=== PATIENT | male | born 1960 | race Hispanic/Latino ===

== ENCOUNTER → 2019-04-25 | Day surgery (SDC) | payer BC ==
[~2019-04-25] MED LIST: ASPIRIN81 MG PO; CENTRUM SILVER1 EAC3 PO; GLIPIZIDE5 MG PO; HUMALOG100 UNIT/1 SQ; HYOSCYAMINE 0.125 MG TAB ONE; LEVEMIR100 UNIT/1 SQ; LISINOPRIL2.5 MG PO; MIDAZOLAM HCL 2 MG/2 ML VIAL ONE; PEPCID20 MG PO; PLAVIX75 MG PO; SIMVASTATIN80 MG PO; TRILIPIX135 MG PO
--- OUTSIDE RECORDS SUMMARY | 2019-04-25 11:51 | XMS REPORT | Continuity of Care Document ---
Author Author [employer] Organization [facility] Address Unknown Phone Unavailable Care Team Providers Care Rehabilitation Program Manager Name Role Phone [facility] Unavailable Unavailable Problems Problem Status Onset Date Classification Date Reported Comments Source OCCLUSION AND STENOSIS OF CAROTID ARTERY, WITHOUT MENTION OF CEREBRAL INFARCTION Active 2014 Condition 08/15/2014 [facility] Essential hypertension Active Problem 04/11/2019 [facility] Mixed hyperlipidemia Active Problem 04/11/2019 [facility] TIA Active Problem 05/23/2017 [facility] Osteoarthritis of lumbar spine Active Problem 04/11/2019 [facility] Hypertriglyceridemia Active Problem 04/11/2019 [facility] Hx-TIA Active Problem 04/11/2019 [facility] GERD Active Problem 04/11/2019 [facility] Hypogonadism in male Active Problem 04/11/2019 [facility] Osteopenia Active Problem 04/11/2019 [facility] Type 2 diabetes mellitus with hyperglycemia Active Problem 04/11/2019 [facility] Atheromatous plaque Active Problem 04/11/2019 [facility] BMI 27.0-27.9,adult Active Problem 04/11/2019 [facility] Insulin long-term use Active Problem 04/11/2019 [facility] Erectile dysfunction due to diseases classified elsewhere Active Problem 04/11/2019 [facility] Overweight Active Problem 04/11/2019 [facility] Carotid artery narrowing Active Problem 04/11/2019 [facility] Acute left-sided low back pain with left-sided sciatica Active Problem 04/11/2019 [facility] Sciatic leg pain Active Problem 04/11/2019 [facility] Radiculopathy of leg Active Diagnosis 08/02/2017 [facility] Injury of low back, initial encounter Active Diagnosis 07/31/2017 [facility] Encounter to discuss test results Active Diagnosis 08/16/2017 [facility] Status post fall Active Diagnosis 07/31/2017 [facility] Lower back pain Active Diagnosis 04/16/2017 [facility] Foraminal stenosis of lumbar region Active Problem 04/11/2019 [facility] Bulging lumbar disc Active Problem 04/11/2019 [facility] Numbness of arm Active Diagnosis 04/04/2018 [facility] Anxiety Active Problem 04/11/2019 [facility] Chest pain, unspecified type Active Diagnosis 04/16/2018 [facility] Febrile illness, acute Active Diagnosis 12/12/2017 [facility] Viral upper respiratory tract infection Active Diagnosis 12/12/2017 [facility] Osteoarthritis of spine with radiculopathy, cervical region Active Problem 04/11/2019 [facility] Osteoarthritis of spine with radiculopathy, lumbar region Active Problem 04/11/2019 [facility] Lung nodule Active Problem 04/11/2019 [facility] Rib pain on left side Active Diagnosis 03/27/2019 [facility] Encounter to discuss test results Active Diagnosis 04/10/2019 [facility] Rib pain Active Diagnosis 04/10/2019 [facility] HTN Active Diagnosis 06/01/2014 [facility] Hyperlipidemia Active Problem 09/01/2015 [facility] SOB Active Problem 05/21/2015 [facility] GERD Active Problem 09/01/2015 [facility] Hypogonadism Active Problem 09/01/2015 [facility] Diabetes mellitus without mention of complication, type II or unspecified type, uncontrolled Active Problem 09/01/2015 [facility] Polyneuropathy in diabetes Active Problem 09/01/2015 [facility] Essential hypertension, benign Active Problem 07/29/2013 [facility] Hyperlipemia Active Diagnosis 06/01/2014 [facility] Left wrist pain Active Diagnosis 07/25/2013 [facility] Cervical radiculopathy Active Diagnosis 07/25/2018 [facility] TIA Active Problem 09/01/2015 [facility] History of ureter stent Active Problem 09/28/2016 [facility] HLD Active Diagnosis 11/19/2015 [facility] Peyronie disease Active Problem 09/28/2016 [facility] Kidney stone Active Problem 09/28/2016 [facility] Vitamin d deficiency Active Diagnosis 06/01/2014 [facility] Neck pain on right side Active Diagnosis 06/01/2014 [facility] Carotid artery narrowing Active Problem 09/01/2015 [facility] Atheromatous plaque Active Problem 09/01/2015 [facility] HTN , benign Active Problem 09/01/2015 [facility] Overweight Active Problem 09/01/2015 [facility] Other follow-up examination Active Diagnosis 10/07/2014 [facility] Encounter to discuss test results Active Diagnosis 10/07/2014 [facility] BMI 26.0-26.9,adult Active Problem 09/01/2015 [facility] Belching Active Diagnosis 07/07/2014 [facility] Gastritis Active Diagnosis 07/07/2014 [facility] Conjunctivitis Active Diagnosis 02/19/2015 [facility] Other follow-up examination Active Diagnosis 09/16/2015 [facility] Hx of renal calculi Active Diagnosis 06/20/2015 [facility] Microhematuria Active Diagnosis 06/20/2015 [facility] Flank pain Active Diagnosis 06/20/2015 [facility] Sinusitis Active Diagnosis 02/09/2015 [facility] URI, acute Active Diagnosis 02/09/2015 [facility] Upper respiratory infection Active Diagnosis 02/29/2016 [facility] Chest pain Active Diagnosis 02/07/2016 [facility] Gastritis Active Diagnosis 02/07/2016 [facility] Hospital discharge follow-up Active Diagnosis 12/07/2015 [facility] Low back pain Active Diagnosis 04/18/2016 [facility] Medications Medication Details Route Status Patient Instructions Ordering Provider Order Date Source Tamiflu 1 capsule Orally Active 75 MG Orally Twice a day Ru Alvarez 01/26/2019 [facility] Tylenol/Codeine #3 1 tablet as needed Orally Active 300-30 MG Orally every 6 hrs PRN Regulo 01/26/2019 [facility] Invokana 1 tablet Orally Active 100 mg Orally Once a day Ghebranious 2018 [facility] Clopidogrel Bisulfate 1 tablet Orally Active 75 mg Orally Once a day Ghebranious 06/01/2018 [facility] GlipiZIDE 1 tablet Orally Active 10 mg Orally Once a day Ghebranious 04/10/2018 [facility] Klonopin 1 tablet at bedtime Orally Active 0.5 MG Orally twice a day (bid) PRN ebranious 03/31/2018 [facility] Clopidogrel Bisulfate 1 tablet Orally Active 75 mg Orally qd LAST REFILL, MUST SEE DOCTOR ebranious 02/10/2018 [facility] GlipiZIDE 1 tablet Orally Active 10 mg Orally twice a day Ghebranious 02/10/2018 [facility] Trilipix 1 capsule Orally Active 135 MG Orally Once a day Ghebranious 12/08/2017 [facility] Bromfed DM 10 ml as needed Orally Active 30-2-10 MG/5ML Orally every 6 hrs Ghebranious 12/02/2017 [facility] Ceftin 1 tablet Orally Active 250 MG Orally every 12 hrs Ghebranious 12/02/2017 [facility] Trilipix 1 capsule Orally Active 135 MG Orally Once a day Ghebranious 09/20/2017 [facility] Tramadol HCl 1 tablet as needed Orally Active 50 mg Orally every 6 hrs Ghebranious 08/31/2017 [facility] Tizanidine HCl 1 tablet as needed Orally Active 4 mg Orally at bedtime Ghebranious 08/28/2017 [facility] Lyrica 1 capsule Orally Active 50 mg Orally twice a day Ghebranious 2017 [facility] Naproxen 1 tablet as needed Orally Active 500 mg Orally every 12 hrs Ghebranious 07/29/2017 [facility] Valium 1 tablet as needed Orally Active 10 mg Orally Once (30 min prior to procedure) Ghebranious 07/29/2017 [facility] Medrol (Kareem) as directed Orally Active 4 mg Orally as directed Ghebranious 07/29/2017 [facility] Trilipix 1 capsule Orally Active 135 MG Orally Once a day Ghebranious 07/15/2017 [facility] OneTouch Test as directed In Vitro Active - In Vitro three times a day DX: E11.65 Ghebranious 03/05/2017 [facility] OneTouch Lancets as directed SQ Active - SQ three times a day DX: E11ebious 03/05/2017 [facility] Simvastatin 2 tablet in the evening Orally Active 40 MG Orally Once a day Ghebranious 03/05/2017 [facility] One Touch/One Touch II Starter as directed In Vitro Active - In Vitro once a day ebranious 03/05/2017 [facility] OneTouch Lancets as directed SQ Active - SQ three times a day DX: E11 Ghebranious 03/05/2017 [facility] Simvastatin 2 tablet in the evening Orally Active 40 MG Orally Once a day Ghebranious 03/05/2017 [facility] GlipiZIDE 1 tablet Orally Active 10 MG Orally Once a day Ghebranious 01/16/2017 [facility] GlipiZIDE 1 tablet Orally Active 10 MG Orally Once a day Ghebranious 01/16/2017 [facility] Metformin HCl 1 tablet with meals Orally Active 500 mg Orally Twice a day Ghebranious 06/22/2016 [facility] Zanaflex 1 tablet as needed Orally Active 4 mg Orally at bedtime Ghebranious 06/22/2016 [facility] Ibuprofen 1 tablet Orally Active 800 MG Orally Three times a day prn Ghebranious 04/13/2016 [facility] Zanaflex 1 tablet as needed Orally Active 4 mg Orally every 8 hrs prn Vidya 04/13/2016 [facility] Dexilant 1 capsule Orally Active 60 MG Orally Once a day Ghebranious 02/02/2016 [facility] Metformin HCl 1 tablet with meals Orally Active 500 mg Orally Twice a day Ghebranious 12/05/2015 [facility] BD Pen Needle Lara U/F as directed subcutaneously Active 32G X 4 MM subcutaneously use QID for Lantus and Humalog dx: E11.65, Z79.4 Ghebranious 11/16/2015 [facility] BD Pen Needle Lara U/F as directed subcutaneously Active 32G X 4 MM subcutaneously use QID for Lantus and Humalog dx: E11.65, Z79.4 Ghebranious 11/16/2015 [facility] Lantus SoloStar as directed Subcutaneous Active 100 UNIT/ML Subcutaneous 60 units in the morning Ghebranious 11/01/2015 [facility] Humalog KwikPen as directed Subcutaneous Active 100 UNIT/ML Subcutaneous 26 units before meals Ghebranious 11/01/2015 [facility] Fenofibric Acid 1 capsule Orally Active 135 MG Orally Once a day Ghebranious 11/01/2015 [facility] NovoLog Flexpen as directed Subcutaneous Active 100 UNIT/ML Subcutaneous inject 28 units three times a day (disp 5 pens) Ghebranious 08/26/2015 [facility] Tramadol HCl 1-2 tablet as needed Orally Active 50 mg Orally every 6 hrs [place] 06/17/2015 [facility] Amrix 1 capsule Orally Active 15 MG Orally Once a day Mohit 06/10/2015 [facility] Metformin HCl 1 tablet with meals Orally Active 500 mg Orally Twice a day Ghebranious 02/07/2015 [facility] Norel AD 1 tablet as needed Orally Active 4-10-325 MG Orally every 4-6 hours Ghebranious 02/07/2015 [facility] Levaquin 1 tablet Orally Active 500 mg Orally Once a day Ghebranious 02/07/2015 [facility] Tamiflu 1 capsule Orally Active 75 mg Orally Twice a day Ghebranious 01/31/2015 [facility] Invokana 1 tablet Orally Active 100 mg Orally Once a day Ghebranious 09/30/2014 [facility] Aciphex 1 tablet Orally Active 20 mg Orally Once a day Ghebranious 06/10/2014 [facility] Actos 1 tablet Orally Active 30 mg Orally Once a day Ghebranious 09/21/2013 [facility] Pen Sizerock 3/16" as directed in vitro Active 31G X 5 MM (12/27 in vitro use QID DX: 250.03 Ghebranious 05/25/2013 [facility] Pen Sizerock 316" as directed in vitro Active 31G X 5 MM (12/27 in vitro use QID DX: 250.03 Ghebranious 05/25/2013 [facility] Pen [place]ock 316" as directed in vitro Active 31G X 5 MM (12/27") in vitro use QID DX: 250.03 [place] 05/25/2013 [facility] Vitamin D (Ergocalciferol) 1 capsule Orally Active 08887 UNIT Orally once per week [place] 05/11/2013 [facility] Levemir Flexpen 54 units Subcutaneous Active 100 UNIT/ML Subcutaneous Q am Ghebranious 12/31/2012 [facility] Simvastatin Take 1 tablet by mouth in the evening PO Active 80 MG PO once a day Vidya [facility] BD U/F Mini Pen Needle use as directed four times daily NA Active 31G X 5 MM four times a [facility]qid[facility] BD Pen Needle Lara U/F USE DIRECTED 4 TIMES DAILY FOR LANTUS AND HUMALOG INSULIN NA Active 32G X 4 MM ebranious [facility] Trilipix 1 capsule Orally Active 135 MG Orally Once a day ebranious [facility] Aspirin 1 tablet Orally Active 81 MG Orally Once a day [facility] Centrum Silver Adult 50+ not defined Orally Active Orally ebranious [facility] Clopidogrel Bisulfate 1 TABLET ONCE A DAY ORALLY 30 DAYS NA Active 75 mg ebranious [facility] Lantus SoloStar Inject subcutaneously 64 units once a day NA Active 100 UNIT/ML ebranious [facility] Lisinopril 1 tablet orally Active 5 MG orally once a day Ghebranious [facility] Humalog KwikPen 30 units subcutaneously Active 100 UNIT/ML subcutaneously tid with meals DISP #28 PENS Ru Alvarez [facility] Centrum Silver Adult 50+ not defined Orally Active Orally [facility] Lantus SoloStar INJECT SUBCUTANEOUSLY 64 UNITS ONCE A DAY NA Active 100 UNIT/ML [facility] Advil 1 tablet with food or milk as needed Orally Active 200 MG Orally every 6 hrs [facility] Tramadol HCl 1 tablet as needed Orally Active 50 MG Orally every 6 hrs [facility] Simvastatin TAKE 2 TABLETS BY MOUTH EVERY EVENING NA Active 40 mg [facility] Aspirin 1 tablet Orally Active 81 MG Orally Once a day [facility] GlipiZIDE 1 tablet Orally Active 10 mg Orally qd LAST REFILL, NEEDS BLOOD WORK [facility] Clopidogrel Bisulfate 1 tablet orally Active 75 mg orally qd LAST REFILL, MUST SEE DOCTOR virgil [facility] OneTouch Ultra Test USE DIRECTED 3 TIMES DAILY NA Active - ebranious [facility] Lantus SoloStar 64 units Subcutaneous Active 100 UNIT/ML Subcutaneous once a day [facility] Simvastatin TAKE 2 TABLETS BY MOUTH EVERY EVENING NA Active 40 mg [facility] OneTouch Delica Lancets Fine USE DIRECTED 3 TIMES DAILY NA Active - ebranious [facility] Humalog KwikPen 30 units subcutaneously Active 100 UNIT/ML subcutaneously tid with meals DISP #28 [facility] Clopidogrel Bisulfate TAKE ONE TABLET BY MOUTH ONCE A DAY NA Active 75 [facility] GlipiZIDE TAKE 1 TABLET BY MOUTH ONCE A DAY NA Active 10 MG [facility] Lisinopril 1 tablet orally Active 5 MG orally once a day [facility] Acetaminophen-Codeine #3 (Schedule III Drug) Oral Active 300- 30 MG Oral Ru Alvarez [facility] BD Pen Needle Lara U/F USE DIRECTED 4 TIMES DAILY NA Active 32G X 4 MM [facility] Clopidogrel Bisulfate TAKE 1 TABLET BY MOUTH ONCE A DAY NA Active 75 MG [facility] Trilipix 1 capsule Orally Active 135 MG Orally Once a day [facility] Trilipix 1 capsule Orally Active 135 MG Orally Once a day Vidya [facility] Lisinopril 1 tablet by mouth Active 5 MG by mouth Once a day [facility] Simvastatin take 1 tablet by mouth in the evening one time daily by mouth Active 80 mg by mouth Once a day [facility] NovoLog Flexpen INJECT 24-26 UNITS SUBCUTANEOUSLY THREE TIMES DAILY NA Active 100 UNIT/ML Mohit [facility] Aspir-81 1 tablet Orally Active 81 MG Orally Once a day [facility] Testosterone Cypionate 1 ml intramuscularly Active 200 MG/ML intramuscularly every 2 weeks [facility] Aspirin 1 tablet Orally Active 325 MG Orally Once a day Vidya [facility] Vitamin D as directed Orally Active 400 UNIT Orally [facility] Levemir Flexpen INJECT 60 UNITS SUBCUTANEOUSLY EVERY MORNING NA Active 100 UNIT/ML [facility] Vitamin E 1 capsule Orally Active 400 UNIT Orally Once a day [facility] Zofran as directed Orally Active 24 MG Orally [facility] NovoLog Flexpen INJECT 26 UNITS SUBCUTANEOUSLY THREE TIMES DAILY NA Active 100 UNIT/ML [facility] Aspirin 1 tablet Orally Active 325 MG Orally Once a day Mohit [facility] Plavix 1 tablet Orally Active 75 MG Orally Once a day [facility] Simvastatin TAKE 1 TABLET BY MOUTH IN THE EVENING ONE TIME DAILY NA Active 80 MG [facility] Lisinopril TAKE 1 TABLET BY MOUTH DAILY NA Active 5 MG [facility] Levemir Flexpen INJECT 56 UNITS SUBCUTANEOUSLY EVERY MORNING NA Active 100 UNIT/ML Ghebranious [facility] Clopidogrel Bisulfate 1 tablet Orally Active 75 mg Orally Once a day Ghebranious [facility] Dexilant 1 capsule Orally Active 60 MG Orally Once a day Ghebranious [facility] Allergies, Adverse Reactions, Alerts Substance Category Reaction Severity Reaction type Status Date Reported Comments Source Tricor Adverse Reaction Info Not Available Adverse Reaction Active 04/07/2019 [facility] Lipitor Adverse Reaction Info Not Available Adverse Reaction Active 04/07/2019 [facility] Codeine Phosphate Adverse Reaction nausea Adverse Reaction Active 04/07/2019 [facility] Immunizations Immunization Date Given Site Status Last Updated Comments Source PNEUMOCOCCAL VACCINE 02/02/2016 completed [facility] Results No Data Provided for This Section Pathology Reports No Data Provided for This Section Diagnostic Reports No Data Provided for This Section Consultation Notes No Data Provided for This Section Discharge Summaries No Data Provided for This Section History and Physicals No Data Provided for This Section Vital Signs Vital Sign Value Date Comments Source Weight 190 04/07/2019 [facility] Height 69 04/07/2019 [facility] Heart Rate 76 04/07/2019 [facility] Diastolic (mm Hg) 64 04/07/2019 [facility] Systolic (mm Hg) 116 04/07/2019 [facility] Weight 185 03/17/2019 [facility] Height 69 03/17/2019 [facility] Heart Rate 68 03/17/2019 [facility] Diastolic (mm Hg) 68 03/17/2019 [facility] Systolic (mm Hg) 118 03/17/2019 [facility] Weight 185 01/26/2019 [facility] Height 69 01/26/2019 [facility] Heart Rate 68 01/26/2019 [facility] Diastolic (mm Hg) 64 01/26/2019 [facility] Systolic (mm Hg) 128 01/26/2019 [facility] Weight 191 12/16/2018 [facility] Height 69 12/16/2018 [facility] Heart Rate 69 12/16/2018 [facility] Diastolic (mm Hg) 74 12/16/2018 [facility] Systolic (mm Hg) 118 12/16/2018 [facility] Weight 190 12/02/2018 [facility] Height 69 12/02/2018 [facility] Heart Rate 66 12/02/2018 [facility] Diastolic (mm Hg) 74 12/02/2018 [facility] Systolic (mm Hg) 116 12/02/2018 [facility] Weight 190 2018 [facility] Height 69 2018 [facility] Heart Rate 72 2018 [facility] Diastolic (mm Hg) 74 2018 [facility] Systolic (mm Hg) 128 2018 [facility] Weight 188 07/21/2018 [facility] Height 69 07/21/2018 [facility] Heart Rate 71 07/21/2018 [facility] Diastolic (mm Hg) 74 07/21/2018 [facility] Systolic (mm Hg) 144 07/21/2018 [facility] Weight 185 04/10/2018 [facility] Height 69 04/10/2018 [facility] Heart Rate 78 04/10/2018 [facility] Diastolic (mm Hg) 74 04/10/2018 [facility] Systolic (mm Hg) 122 04/10/2018 [facility] Weight 184 04/02/2018 [facility] Height 69 04/02/2018 [facility] Heart Rate 66 04/02/2018 [facility] Diastolic (mm Hg) 74 04/02/2018 [facility] Systolic (mm Hg) 118 04/02/2018 [facility] Weight 184 03/31/2018 [facility] Height 69 03/31/2018 [facility] Heart Rate 86 03/31/2018 [facility] Diastolic (mm Hg) 84 03/31/2018 [facility] Systolic (mm Hg) 134 03/31/2018 [facility] Weight 184 12/02/2017 [facility] Height 69 12/02/2017 [facility] [facility] Heart Rate 90 12/02/2017 [facility] Diastolic (mm Hg) 84 12/02/2017 [facility] Systolic (mm Hg) 142 12/02/2017 [facility] Weight 182 2017 [facility] Height 69 2017 [facility] Heart Rate 82 2017 [facility] Diastolic (mm Hg[facility] 74 2017 [facility] Systolic (mm Hg) 126 2017 [facility] Systolic (mm Hg) 142 07/29/2017 [facility] Height 69 07/29/2017 [facility] Heart Rate 74 07/29/2017 [facility] Diastolic (mm Hg) 84 07/29/2017 [facility] Weight 185 07/12/2017 [facility] Height 69 07/12/2017 [facility] Heart Rate 71 07/12/2017 [facility] Diastolic (mm Hg) 72 07/12/2017 [facility] Systolic (mm Hg) 118 07/12/2017 [facility] Weight 191 04/12/2017 [facility] Height 69 04/12/2017 [facility] Heart Rate 66 04/12/2017 [facility] Diastolic (mm Hg) 72 04/12/2017 [facility] Systolic (mm Hg) 118 04/12/2017 [facility] Weight 187 03/05/2017 [facility] Height 69 03/05/2017 [facility] Heart Rate 80 03/05/2017 [facility] Diastolic (mm Hg) 70 03/05/2017 [facility] Systolic (mm Hg) 108 03/05/2017 [facility] Weight 188 12/13/2016 [facility] Height 69 12/13/2016 [facility] Heart Rate 76 12/13/2016 [facility] Diastolic (mm Hg) 78 12/13/2016 [facility] Systolic (mm Hg) 118 12/13/2016 [facility] Weight 186 09/24/2016 [facility] Height 69 09/24/2016 [facility] Heart Rate 72 09/24/2016 [facility] Diastolic (mm Hg) 76 09/24/2016 [facility] Systolic (mm Hg) 122 09/24/2016 [facility] Weight 190 06/22/2016 [facility] Height 69 06/22/2016 [facility] Heart Rate 68 06/22/2016 [facility] Diastolic (mm Hg) 86 06/22/2016 [facility] Systolic (mm Hg) 124 06/22/2016 [facility] Weight 190 06/05/2016 [facility] Height 69 06/05/2016 [facility] Heart Rate 72 06/05/2016 [facility] Diastolic (mm Hg) 74 06/05/2016 [facility] Systolic (mm Hg) 118 06/05/2016 [facility] Weight 188 04/13/2016 [facility] Height 69 04/13/2016 [facility] Heart Rate 77 04/13/2016 [facility] Diastolic (mm Hg) 76 04/13/2016 [facility] Systolic (mm Hg) 120 04/13/2016 [facility] Weight 189 04/03/2016 [facility] Height 69 04/03/2016 [facility] Heart Rate 61 04/03/2016 [facility] Diastolic (mm Hg) 76 04/03/2016 [facility] Systolic (mm Hg) 124 04/03/2016 [facility] Weight 189 03/21/2016 [facility] Height 69 03/21/2016 [facility] Diastolic (mm Hg) 66 03/21/2016 [facility] Systolic (mm Hg) 118 03/21/2016 [facility] Weight 189 03/01/2016 [facility] Height 69 03/01/2016 [facility] Heart Rate 72 03/01/2016 [facility] Diastolic (mm Hg) 74 03/01/2016 [facility] Systolic (mm Hg) 118 03/01/2016 [facility] Weight 188 02/27/2016 [facility] Height 69 02/27/2016 [facility] Temperature Oral (F) 98.1 F 02/27/2016 [facility] Heart Rate 73 02/27/2016 [facility] Diastolic (mm Hg) 70 02/27/2016 [facility] Systolic (mm Hg) 124 02/27/2016 [facility] Weight 188 02/22/2016 [facility] Height 69 02/22/2016 [facility] Heart Rate 65 02/22/2016 [facility] Diastolic (mm Hg) 64 02/22/2016 [facility] Systolic (mm Hg) 114 02/22/2016 [facility] Weight 187 02/02/2016 [facility] Height 69 02/02/2016 [facility] Heart Rate 84 02/02/2016 [facility] Diastolic (mm Hg) 58 02/02/2016 [facility] Systolic (mm Hg) 116 02/02/2016 [facility] Weight 185 12/05/2015 [facility] Height 69 12/05/2015 [facility] Heart Rate 82 12/05/2015 [facility] Diastolic (mm Hg) 68 12/05/2015 [facility] Systolic (mm Hg) 116 12/05/2015 [facility] Weight 185 11/01/2015 [facility] Height 69 11/01/2015 [facility] Heart Rate 72 11/01/2015 [facility] Diastolic (mm Hg) 66 11/01/2015 [facility] Systolic (mm Hg) 120 11/01/2015 [facility] Weight 185 09/28/2015 [facility] Height 69 09/28/2015 [facility] Heart Rate 82 09/28/2015 [facility] Diastolic (mm Hg) 72 09/28/2015 [facility] Systolic (mm Hg) 116 09/28/2015 [facility] Weight 185 09/14/2015 [facility] Height 69 09/14/2015 [facility] Heart Rate 82 09/14/2015 [facility] Diastolic (mm Hg) 68 09/14/2015 [facility] Systolic (mm Hg) 112 09/14/2015 [facility] Weight 180 06/17/2015 [facility] Height 69 06/17/2015 [facility] Heart Rate 80 06/17/2015 [facility] Diastolic (mm Hg) 74 06/17/2015 [facility] Systolic (mm Hg) 132 06/17/2015 [facility] Height 69 02/16/2015 [facility] Weight 176 02/07/2015 [facility] Height 69 02/07/2015 [facility] Temperature Oral (F) 98.4 F 02/07/2015 [facility] Heart Rate 80 02/07/2015 [facility] Diastolic (mm Hg) 70 02/07/2015 [facility] Systolic (mm Hg) 120 02/07/2015 [facility] Weight 181 09/30/2014 [facility] Height 69 09/30/2014 [facility] Heart Rate 72 09/30/2014 [facility] Diastolic (mm Hg) 64 09/30/2014 [facility] Systolic (mm Hg) 112 09/30/2014 [facility] Weight 181 2014 [facility] Height 69 2014 [facility] Temperature Oral (F) 98 F 2014 [facility] Heart Rate 67 2014 [facility] Systolic (mm Hg) 122 2014 [facility] Diastolic (mm Hg) 81 2014 [facility] Weight 181 06/10/2014 [facility] Height 69 06/10/2014 [facility] Heart Rate 68 06/10/2014 [facility] Diastolic (mm Hg) 66 06/10/2014 [facility] Systolic (mm Hg) 108 06/10/2014 [facility] Weight 185 04/26/2014 [facility] Height 69 04/26/2014 [facility] Heart Rate 68 04/26/2014 [facility] Diastolic (mm Hg) 80 04/26/2014 [facility] Systolic (mm Hg) 118 04/26/2014 [facility] Weight 185 03/11/2014 [facility] Height 69 03/11/2014 [facility] Heart Rate 64 03/11/2014 [facility] Diastolic (mm Hg) 76 03/11/2014 [facility] Systolic (mm Hg) 112 03/11/2014 [facility] Weight 178 12/01/2013 [facility] Height 69 12/01/2013 [facility] Heart Rate 70 12/01/2013 [facility] Diastolic (mm Hg) 70 12/01/2013 [facility] Systolic (mm Hg) 122 12/01/2013 [facility] Weight 184 10/06/2013 [facility] Height 69 10/06/2013 [facility] Heart Rate 68 10/06/2013 [facility] Diastolic (mm Hg) 74 10/06/2013 [facility] Systolic (mm Hg) 128 10/06/2013 [facility] Weight 184 10/06/2013 [facility] Heart Rate 68 10/06/2013 [facility] Diastolic (mm Hg) 74 10/06/2013 [facility] Systolic (mm Hg) 128 10/06/2013 [facility] Weight 178 09/21/2013 [facility] Height 69 09/21/2013 [facility] Temperature Oral (F) 97.6 F 09/21/2013 [facility] Heart Rate 76 09/21/2013 [facility] Diastolic (mm Hg) 76 09/21/2013 [facility] Systolic (mm Hg) 114 09/21/2013 [facility] Weight 178 09/21/2013 [facility] Temperature Oral (F) 97.6 F 09/21/2013 [facility] Heart Rate 76 09/21/2013 [facility] Diastolic (mm Hg) 76 09/21/2013 [facility] Systolic (mm Hg) 114 09/21/2013 [facility] Weight 182 07/23/2013 [facility] Height 69 07/23/2013 [facility] Heart Rate 60 07/23/2013 [facility] Diastolic (mm Hg) 82 07/23/2013 [facility] Systolic (mm Hg) 122 07/23/2013 [facility] Encounters Location Location Details Encounter Type Encounter Number Reason For Visit Attending Provider ADM Date DC Date Status Source [facility] [id number] 07/23/2013 07/23/2013 [facility] [id number] 07/23/2013 07/23/2013 [facility] [id number] 07/23/2013 07/23/2013 [facility] [id number] 07/23/2013 07/23/2013 [facility] [id number] 07/23/2013 07/23/2013 [facility] [id number] 07/23/2013 07/23/2013 [facility] [id number] 07/23/2013 07/23/2013 [facility] [id number] 07/23/2013 07/23/2013 [facility] [id number] 07/23/2013 07/23/2013 [facility] [id number] 07/23/2013 07/23/2013 [facility] [id number] 07/23/2013 07/23/2013 [facility] [id number] 07/23/2013 07/23/2013 [facility] [id number] 07/23/2013 07/23/2013 [facility] [id number] 07/23/2013 07/23/2013 [facility] [id number] 07/23/2013 07/23/2013 [facility] [id number] 07/23/2013 07/23/2013 [facility] [id number] 07/23/2013 07/23/2013 [facility] [id number] 07/23/2013 07/23/2013 [facility] [id number] 07/23/2013 07/23/2013 [facility] [id number] 07/23/2013 07/23/2013 [facility] [id number] 07/23/2013 07/23/2013 [facility] [id number] 07/23/2013 07/23/2013 [facility] [id number] 07/23/2013 07/23/2013 [facility] [id number] 07/23/2013 07/23/2013 [facility] [id number] 07/23/2013 07/23/2013 [facility] [id number] 07/23/2013 07/23/2013 [facility] [id number] 07/23/2013 07/23/2013 [facility] [id number] 07/23/2013 07/23/2013 [facility] [id number] 07/23/2013 07/23/2013 [facility] [id number] 07/23/2013 07/23/2013 [facility] [id number] 07/23/2013 07/23/2013 [facility] [id number] 07/23/2013 07/23/2013 [facility] [id number] 07/23/2013 07/23/2013 [facility] [id number] 07/23/2013 07/23/2013 [facility] [id number] 07/23/2013 07/23/2013 [facility] [id number] 07/23/2013 07/23/2013 [facility] [id number] 07/23/2013 07/23/2013 [facility] [id number] 07/23/2013 07/23/2013 [facility] [id number] 07/23/2013 07/23/2013 [facility] [id number] 07/23/2013 07/23/2013 [facility] [id number] 07/23/2013 07/23/2013 [facility] [id number] 07/23/2013 07/23/2013 [facility] [id number] 07/23/2013 07/23/2013 [facility] [id number] 07/23/2013 07/23/2013 [facility] Test results [id number] 07/28/2013 07/28/2013 [facility] Test results [id number] 07/28/2013 07/28/2013 [facility] Test results [id number] 07/28/2013 07/28/2013 [facility] Test results [id number] 07/28/2013 07/28/2013 [facility] Test results [id number] 07/28/2013 07/28/2013 [facility] Test results [id number] 07/28/2013 07/28/2013 [facility] Test results [id number] 07/28/2013 07/28/2013 [facility] Test results [id number] 07/28/2013 07/28/2013 [facility] Test results [id number] 07/28/2013 07/28/2013 [facility] Test results [id number] 07/28/2013 07/28/2013 [facility] Test results [id number] 07/28/2013 07/28/2013 [facility] Test results [id number] 07/28/2013 07/28/2013 [facility] Test results [id number] 07/28/2013 07/28/2013 [facility] Test results [id number] 07/28/2013 07/28/2013 [facility] Test results [id number] 07/28/2013 07/28/2013 [facility] Test results [id number] 07/28/2013 07/28/2013 [facility] Test results [id number] 07/28/2013 07/28/2013 [facility] Test results [id number] 07/28/2013 07/28/2013 [facility] Test results [id number] 07/28/2013 07/28/2013 [facility] Test results [id number] 07/28/2013 07/28/2013 [facility] Test results [id number] 07/28/2013 07/28/2013 [facility] Test results [id number] 07/28/2013 07/28/2013 [facility] Test results [id number] 07/28/2013 07/28/2013 [facility] Test results [id number] 07/28/2013 07/28/2013 [facility] Test results [id number] 07/28/2013 07/28/2013 [facility] Test results [id number] 07/28/2013 07/28/2013 [facility] Test results [id number] 07/28/2013 07/28/2013 [facility] Test results [id number] 07/28/2013 07/28/2013 [facility] Test results [id number] 07/28/2013 07/28/2013 [facility] Test results [id number] 07/28/2013 07/28/2013 [facility] Test results [id number] 07/28/2013 07/28/2013 [facility] Test results [id number] 07/28/2013 07/28/2013 [facility] Test results [id number] 07/28/2013 07/28/2013 [facility] Test results [id number] 07/28/2013 07/28/2013 [facility] Test results [id number] 07/28/2013 07/28/2013 [facility] Test results [id number] 07/28/2013 07/28/2013 [facility] Test results [id number] 07/28/2013 07/28/2013 [facility] Test results [id number] 07/28/2013 07/28/2013 [facility] Test results [id number] 07/28/2013 07/28/2013 [facility] Test results [id number] 07/28/2013 07/28/2013 [facility] Test results [id number] 07/28/2013 07/28/2013 [facility] Test results [id number] 07/28/2013 07/28/2013 [facility] Test results [id number] 07/28/2013 07/28/2013 [facility] [id number] 08/12/2013 08/12/2013 [facility] [id number] 08/12/2013 08/12/2013 [facility] [id number] 08/12/2013 08/12/2013 [facility] [id number] 08/12/2013 08/12/2013 [facility] [id number] 08/12/2013 08/12/2013 [facility] [id number] 08/12/2013 08/12/2013 [facility] [id number] 08/12/2013 08/12/2013 [facility] [id number] 08/12/2013 08/12/2013 [facility] [id number] 08/12/2013 08/12/2013 [facility] [id number] 08/12/2013 08/12/2013 [facility] [id number] 08/12/2013 08/12/2013 [facility] [id number] 08/12/2013 08/12/2013 [facility] [id number] 08/12/2013 08/12/2013 [facility] [id number] 08/12/2013 08/12/2013 [facility] [id number] 08/12/2013 08/12/2013 [facility] [id number] 08/12/2013 08/12/2013 [facility] [id number] 08/12/2013 08/12/2013 [facility] [id number] 08/12/2013 08/12/2013 [facility] [id number] 08/12/2013 08/12/2013 [facility] [id number] 08/12/2013 08/12/2013 [facility] [id number] 08/12/2013 08/12/2013 [facility] [id number] 08/12/2013 08/12/2013 [facility] [id number] 08/12/2013 08/12/2013 [facility] [id number] 08/12/2013 08/12/2013 [facility] [id number] 08/12/2013 08/12/2013 [facility] [id number] 08/12/2013 08/12/2013 [facility] [id number] 08/12/2013 08/12/2013 [facility] [id number] 08/12/2013 08/12/2013 [facility] [id number] 08/12/2013 08/12/2013 [facility] [id number] 08/12/2013 08/12/2013 [facility] [id number] 08/12/2013 08/12/2013 [facility] [id number] 08/12/2013 08/12/2013 [facility] [id number] 08/12/2013 08/12/2013 [facility] [id number] 08/12/2013 08/12/2013 [facility] [id number] 08/12/2013 08/12/2013 [facility] [id number] 08/12/2013 08/12/2013 [facility] [id number] 08/12/2013 08/12/2013 [facility] [id number] 08/12/2013 08/12/2013 [facility] TEST INJ [id number] 08/27/2013 08/27/2013 [facility] TEST INJ [id number] 08/27/2013 08/27/2013 [facility] TEST INJ [id number] 08/27/2013 08/27/2013 [facility] TEST INJ [id number] 08/27/2013 08/27/2013 [facility] TEST INJ [id number] 08/27/2013 08/27/2013 [facility] TEST INJ [id number] 08/27/2013 08/27/2013 [facility] TEST INJ [id number] 08/27/2013 08/27/2013 [facility] TEST INJ [id number] 08/27/2013 08/27/2013 [facility] TEST INJ [id number] 08/27/2013 08/27/2013 [facility] TEST INJ [id number] 08/27/2013 08/27/2013 [facility] TEST INJ [id number] 08/27/2013 08/27/2013 [facility] TEST INJ [id number] 08/27/2013 08/27/2013 [facility] TEST INJ [id number] 08/27/2013 08/27/2013 [facility] TEST INJ [id number] 08/27/2013 08/27/2013 [facility] TEST INJ [id number] 08/27/2013 08/27/2013 [facility] TEST INJ [id number] 08/27/2013 08/27/2013 [facility] TEST INJ [id number] 08/27/2013 08/27/2013 [facility] TEST INJ [id number] 08/27/2013 08/27/2013 [facility] TEST INJ [id number] 08/27/2013 08/27/2013 [facility] TEST INJ [id number] 08/27/2013 08/27/2013 [facility] TEST INJ [id number] 08/27/2013 08/27/2013 [facility] TEST INJ [id number] 08/27/2013 08/27/2013 [facility] TEST INJ [id number] 08/27/2013 08/27/2013 [facility] TEST INJ [id number] 08/27/2013 08/27/2013 [facility] TEST INJ [id number] 08/27/2013 08/27/2013 [facility] TEST INJ [id number] 08/27/2013 08/27/2013 [facility] TEST INJ [id number] 08/27/2013 08/27/2013 [facility] TEST INJ [id number] 08/27/2013 08/27/2013 [facility] TEST INJ [id number] 08/27/2013 08/27/2013 [facility] TEST INJ [id number] 08/27/2013 08/27/2013 [facility] TEST INJ [id number] 08/27/2013 08/27/2013 [facility] TEST INJ [id number] 08/27/2013 08/27/2013 [facility] TEST INJ [id number] 08/27/2013 08/27/2013 [facility] TEST INJ [id number] 08/27/2013 08/27/2013 [facility] TEST INJ [id number] 08/27/2013 08/27/2013 [facility] TEST INJ [id number] 08/27/2013 08/27/2013 [facility] TEST INJ [id number] 08/27/2013 08/27/2013 [facility] TEST INJ [id number] 08/27/2013 08/27/2013 [facility] FOLLOW-UP [id number] 09/21/2013 09/21/2013 [facility] FOLLOW-UP [id number] 09/21/2013 09/21/2013 [facility] FOLLOW-UP [id number] 09/21/2013 09/21/2013 [facility] FOLLOW-UP [id number] 09/21/2013 09/21/2013 [facility] FOLLOW-UP [id number] 09/21/2013 09/21/2013 [facility] FOLLOW-UP [id number] 09/21/2013 09/21/2013 [facility] FOLLOW-UP [id number] 09/21/2013 09/21/2013 [facility] FOLLOW-UP [id number] 09/21/2013 09/21/2013 [facility] FOLLOW-UP [id number] 09/21/2013 09/21/2013 [facility] FOLLOW-UP [id number] 09/21/2013 09/21/2013 [facility] FOLLOW-UP [id number] 09/21/2013 09/21/2013 [facility] FOLLOW-UP [id number] 09/21/2013 09/21/2013 [facility] FOLLOW-UP [id number] 09/21/2013 09/21/2013 [facility] FOLLOW-UP [id number] 09/21/2013 09/21/2013 [facility] FOLLOW-UP [id number] 09/21/2013 09/21/2013 [facility] FOLLOW-UP [id number] 09/21/2013 09/21/2013 [facility] FOLLOW-UP [id number] 09/21/2013 09/21/2013 [facility] FOLLOW-UP [id number] 09/21/2013 09/21/2013 [facility] FOLLOW-UP [id number] 09/21/2013 09/21/2013 [facility] FOLLOW-UP [id number] 09/21/2013 09/21/2013 [facility] FOLLOW-UP [id number] 09/21/2013 09/21/2013 [facility] FOLLOW-UP [id number] 09/21/2013 09/21/2013 [facility] FOLLOW-UP [id number] 09/21/2013 09/21/2013 [facility] FOLLOW-UP [id number] 09/21/2013 09/21/2013 [facility] FOLLOW-UP [id number] 09/21/2013 09/21/2013 [facility] FOLLOW-UP [id number] 09/21/2013 09/21/2013 [facility] FOLLOW-UP [id number] 09/21/2013 09/21/2013 [facility] FOLLOW-UP [id number] 09/21/2013 09/21/2013 [facility] FOLLOW-UP [id number] 09/21/2013 09/21/2013 [facility] FOLLOW-UP [id number] 09/21/2013 09/21/2013 [facility] FOLLOW-UP [id number] 09/21/2013 09/21/2013 [facility] FOLLOW-UP [id number] 09/21/2013 09/21/2013 [facility] FOLLOW-UP [id number] 09/21/2013 09/21/2013 [facility] FOLLOW-UP [id number] 09/21/2013 09/21/2013 [facility] FOLLOW-UP [id number] 09/21/2013 09/21/2013 [facility] FOLLOW-UP [id number] 09/21/2013 09/21/2013 [facility] FOLLOW-UP [id number] 09/21/2013 09/21/2013 [facility] FOLLOW-UP [id number] 09/21/2013 09/21/2013 [facility] ECHO/GHEB [id number] 09/22/2013 09/22/2013 [facility] ECHO/GHEB [id number] 09/22/2013 09/22/2013 [facility] ECHO/GHEB [id number] 09/22/2013 09/22/2013 [facility] ECHO/EB [id number] 09/22/2013 09/22/2013 [facility] ECHO/EB [id number] 09/22/2013 09/22/2013 [facility] ECHO/EB [id number] 09/22/2013 09/22/2013 [facility] ECHO/EB [id number] 09/22/2013 09/22/2013 [facility] ECHO/EB [id number] 09/22/2013 09/22/2013 [facility] ECHO/EB [id number] 09/22/2013 09/22/2013 [facility] ECHO/EB [id number] 09/22/2013 09/22/2013 [facility] ECHO/EB [id number] 09/22/2013 09/22/2013 [facility] ECHO/EB [id number] 09/22/2013 09/22/2013 [facility] [facility] ECHO/EB [id number] 09/22/2013 09/22/2013 [facility] ECHO/[facility] [id number] 09/22/2013 09/22/2013 [facility] [id number] 09/22/2013 09/22/2013 [facility] ECHO/EB [id number] 09/22/2013 09/22/2013 [facility] ECHO/EB [id number] 09/22/2013 09/22/2013 [facility] ECHO/EB [id number] 09/22/2013 09/22/2013 [facility] ECHO/EB [id number] 09/22/2013 09/22/2013 [facility] ECHO/EB [id number] 09/22/2013 09/22/2013 [facility] ECHO/EB [id number] 09/22/2013 09/22/2013 [facility] ECHO/EB [id number] 09/22/2013 09/22/2013 [facility] ECHO/EB [id number] 09/22/2013 09/22/2013 [facility] ECHO/EB [id number] 09/22/2013 09/22/2013 [facility] ECHO/EB [id number] 09/22/2013 09/22/2013 [facility] ECHO/EB [id number] 09/22/2013 09/22/2013 [facility] ECHO/EB [id number] 09/22/2013 09/22/2013 [facility] ECHO/EB [id number] 09/22/2013 09/22/2013 [facility] ECHO/EB [id number] 09/22/2013 09/22/2013 [facility] ECHO/EB [id number] 09/22/2013 09/22/2013 [facility] ECHO/EB [id number] 09/22/2013 09/22/2013 [facility] ECHO/EB [id number] 09/22/2013 09/22/2013 [facility] ECHO/EB [id number] 09/22/2013 09/22/2013 [facility] E[facility] [id number] 09/22/2013 09/22/2013 [facility] [id number] 09/22/2013 09/22/2013 [facility] ECHO/EB [id number] 09/22/2013 09/22/2013 [facility] ECHO/EB [id number] 09/22/2013 09/22/2013 [facility] ECHO/EB [id number] 09/22/2013 09/22/2013 [facility] ECHO/EB [id number] 09/22/2013 09/22/2013 [facility] ECHO/EB [id number] 09/22/2013 09/22/2013 [facility] ECHO/EB [id number] 09/22/2013 09/22/2013 [facility] ECHO/EB [id number] 09/22/2013 09/22/2013 [facility] Follow-Up [id number] 10/06/2013 10/06/2013 [facility] Follow-Up [id number] 10/06/2013 10/06/2013 [facility] Follow-Up [id number] 10/06/2013 10/06/2013 [facility] Follow-Up [id number] 10/06/2013 10/06/2013 [facility] Follow-Up [id number] 10/06/2013 10/06/2013 [facility] Follow-Up [id number] 10/06/2013 10/06/2013 [facility] Follow-Up [id number] 10/06/2013 10/06/2013 [facility] Follow-Up [id number] 10/06/2013 10/06/2013 [facility] Follow-Up [id number] 10/06/2013 10/06/2013 [facility] Follow-Up [id number] 10/06/2013 10/06/2013 [facility] Follow-Up [id number] 10/06/2013 10/06/2013 [facility] Follow-Up [id number] 10/06/2013 10/06/2013 [facility] Follow-Up [id number] 10/06/2013 10/06/2013 [facility] Follow-Up [id number] 10/06/2013 10/06/2013 [facility] Follow-Up [id number] 10/06/2013 10/06/2013 [facility] Follow-Up [id number] 10/06/2013 10/06/2013 [facility] Follow-Up [id number] 10/06/2013 10/06/2013 [facility] Follow-Up [id number] 10/06/2013 10/06/2013 [facility] Follow-Up [id number] 10/06/2013 10/06/2013 [facility] Follow-Up [id number] 10/06/2013 10/06/2013 [facility] Follow-Up [id number] 10/06/2013 10/06/2013 [facility] Follow-Up [id number] 10/06/2013 10/06/2013 [facility] Follow-Up [id number] 10/06/2013 10/06/2013 [facility] Follow-Up [id number] 10/06/2013 10/06/2013 [facility] Follow-Up [id number] 10/06/2013 10/06/2013 [facility] Follow-Up [id number] 10/06/2013 10/06/2013 [facility] Follow-Up [id number] 10/06/2013 10/06/2013 [facility] Follow-Up [id number] 10/06/2013 10/06/2013 [facility] Follow-Up [id number] 10/06/2013 10/06/2013 [facility] Follow-Up [id number] 10/06/2013 10/06/2013 [facility] Follow-Up [id number] 10/06/2013 10/06/2013 [facility] Follow-Up [id number] 10/06/2013 10/06/2013 [facility] Follow-Up [id number] 10/06/2013 10/06/2013 [facility] Follow-Up [id number] 10/06/2013 10/06/2013 [facility] Follow-Up [id number] 10/06/2013 10/06/2013 [facility] Follow-Up [id number] 10/06/2013 10/06/2013 [facility] Follow-Up [id number] 10/06/2013 10/06/2013 [facility] Follow-Up [id number] 10/06/2013 10/06/2013 [facility] Refill Request [id number] 11/04/2013 11/04/2013 [facility] Refill Request [id number] 11/04/2013 11/04/2013 [facility] Refill Request [id number] 11/04/2013 11/04/2013 [facility] Refill Request [id number] 11/04/2013 11/04/2013 [facility] Refill Request [id number] 11/04/2013 11/04/2013 [facility] Refill Request [id number] 11/04/2013 11/04/2013 [facility] Refill Request [id number] 11/04/2013 11/04/2013 [facility] Refill Request [id number] 11/04/2013 11/04/2013 [facility] Refill Request [id number] 11/04/2013 11/04/2013 [facility] Request [id number] 11/04/2013 11/04/2013 [facility] Refill Request [id number] 11/04/2013 11/04/2013 [facility] Refill Request [id number] 11/04/2013 11/04/2013 [facility] Refill Request [id number] 11/04/2013 11/04/2013 [facility] Refill Request [id number] 11/04/2013 11/04/2013 [facility] Ref[facility] Request [id number] 11/04/2013 11/04/2013 [facility] Refill Request [id number] 11/04/2013 11/04/2013 [facility] Refill Request [id number] 11/04/2013 11/04/2013 [facility] Refill Request [id number] 11/04/2013 11/04/2013 [facility] Refill Request [id number] 11/04/2013 11/04/2013 [facility] Refill Request [id number] 11/04/2013 11/04/2013 [facility] Refill Request [id number] 11/04/2013 11/04/2013 [facility] Refill Request [id number] 11/04/2013 11/04/2013 [facility] Refill Request [id number] 11/04/2013 11/04/2013 [facility] Refill Request [id number] 11/04/2013 11/04/2013 [facility] Refill Request [id number] 11/04/2013 11/04/2013 [facility] Refill Request [id number] 11/04/2013 11/04/2013 [facility] Refill Request [id number] 11/04/2013 11/04/2013 [facility] Refill Request [id number] 11/04/2013 11/04/2013 [facility] Refill Request [id number] 11/04/2013 11/04/2013 [facility] Refill Request [id number] 11/04/2013 11/04/2013 [facility] Refill Request [id number] 11/04/2013 11/04/2013 [facility] Refill Request [id number] 11/04/2013 11/04/2013 [facility] Refill Request [id number] 11/04/2013 11/04/2013 [facility] Refill Request [id number] 11/04/2013 11/04/2013 [facility] Refill Request [id number] 11/04/2013 11/04/2013 [facility] Refill Request [id number] 11/04/2013 11/04/2013 [facility] Refill Request [id number] 11/04/2013 11/04/2013 [facility] Refill Request [id number] 11/04/2013 11/04/2013 [facility] Refill Request [id number] 11/04/2013 11/04/2013 [facility] Refill Request [id number] 11/04/2013 11/04/2013 [facility] Refill Request [id number] 11/04/2013 11/04/2013 [facility] fbw/ inj [id number] 11/12/2013 11/12/2013 [facility] fbw/ inj [id number] 11/12/2013 11/12/2013 [facility] fbw/ inj [id number] 11/12/2013 11/12/2013 [facility] fbw/ inj [id number] 11/12/2013 11/12/2013 [facility] fbw/ inj [id number] 11/12/2013 11/12/2013 [facility] fbw/ inj [id number] 11/12/2013 11/12/2013 [facility] fbw/ inj [id number] 11/12/2013 11/12/2013 [facility] fbw/ inj [id number] 11/12/2013 11/12/2013 [facility] fbw/ inj [id number] 11/12/2013 11/12/2013 [facility] fbw/ inj [id number] 11/12/2013 11/12/2013 [facility] fbw/ inj [id number] 11/12/2013 11/12/2013 [facility] fbw/ inj [id number] 11/12/2013 11/12/2013 [facility] fbw/ inj [id number] 11/12/2013 11/12/2013 [facility] fbw/ inj [id number] 11/12/2013 11/12/2013 [facility] fbw/ inj [id number] 11/12/2013 11/12/2013 [facility] fbw/ inj [id number] 11/12/2013 11/12/2013 [facility] fbw/ inj [id number] 11/12/2013 11/12/2013 [facility] fbw/ inj [id number] 11/12/2013 11/12/2013 [facility] fbw/ inj [id number] 11/12/2013 11/12/2013 [facility] fbw/ inj [id number] 11/12/2013 11/12/2013 [facility] fbw/ inj [id number] 11/12/2013 11/12/2013 [facility] fbw/ inj [id number] 11/12/2013 11/12/2013 [facility] fbw/ inj [id number] 11/12/2013 11/12/2013 [facility] fbw/ inj [id number] 11/12/2013 11/12/2013 [facility] fbw/ inj [id number] 11/12/2013 11/12/2013 [facility] fbw/ inj [id number] 11/12/2013 11/12/2013 [facility] fbw/ inj [id number] 11/12/2013 11/12/2013 [facility] fbw/ inj [id number] 11/12/2013 11/12/2013 [facility] fbw/ inj [id number] 11/12/2013 11/12/2013 [facility] fbw/ inj [id number] 11/12/2013 11/12/2013 [facility] fbw/ inj [id number] 11/12/2013 11/12/2013 [facility] fbw/ inj [id number] 11/12/2013 11/12/2013 [facility] fbw/ inj [id number] 11/12/2013 11/12/2013 [facility] fbw/ inj [id number] 11/12/2013 11/12/2013 [facility] fbw/ inj [id number] 11/12/2013 11/12/2013 [facility] fbw/ inj [id number] 11/12/2013 11/12/2013 [facility] fbw/ inj [id number] 11/12/2013 11/12/2013 [facility] fbw/ inj [id number] 11/12/2013 11/12/2013 [facility] RESULTS/TEST INJ [id number] 12/01/2013 12/01/2013 [facility] RESULTS/TEST INJ [id number] 12/01/2013 12/01/2013 [facility] RESULTS/TEST INJ [id number] 12/01/2013 12/01/2013 [facility] RESULTS/TEST INJ [id number] 12/01/2013 12/01/2013 [facility] RESULTS/TEST INJ [id number] 12/01/2013 12/01/2013 [facility] RESULTS/TEST INJ [id number] 12/01/2013 12/01/2013 [facility] RESULTS/TEST INJ [id number] 12/01/2013 12/01/2013 [facility] RESULTS/TEST INJ [id number] 12/01/2013 12/01/2013 [facility] RESULTS/TEST INJ [id number] 12/01/2013 12/01/2013 [facility] RESULTS/TEST INJ [id number] 12/01/2013 12/01/2013 [facility] RESULTS/TEST INJ [id number] 12/01/2013 12/01/2013 [facility] RESULTS/TEST INJ [id number] 12/01/2013 12/01/2013 [facility] RESULTS/TEST INJ [id number] 12/01/2013 12/01/2013 [facility] RESULTS/TEST INJ [id number] 12/01/2013 12/01/2013 [facility] RESULTS/TEST INJ [id number] 12/01/2013 12/01/2013 [facility] RESULTS/TEST INJ [id number] 12/01/2013 12/01/2013 [facility] RESULTS/TEST INJ [id number] 12/01/2013 12/01/2013 [facility] RESULTS/TEST INJ [id number] 12/01/2013 12/01/2013 [facility] RESULTS/TEST INJ [id number] 12/01/2013 12/01/2013 [facility] RESULTS/TEST INJ [id number] 12/01/2013 12/01/2013 [facility] RESULTS/TEST INJ [id number] 12/01/2013 12/01/2013 [facility] RESULTS/TEST INJ [id number] 12/01/2013 12/01/2013 [facility] RESULTS/TEST INJ [id number] 12/01/2013 12/01/2013 [facility] RESULTS/TEST INJ [id number] 12/01/2013 12/01/2013 [facility] RESULTS/TEST INJ [id number] 12/01/2013 12/01/2013 [facility] RESULTS/TEST INJ [id number] 12/01/2013 12/01/2013 [facility] RESULTS/TEST INJ [id number] 12/01/2013 12/01/2013 [facility] RESULTS/TEST INJ [id number] 12/01/2013 12/01/2013 [facility] RESULTS/TEST INJ [id number] 12/01/2013 12/01/2013 [facility] RESULTS/TEST INJ [id number] 12/01/2013 12/01/2013 [facility] RESULTS/TEST INJ [id number] 12/01/2013 12/01/2013 [facility] RESULTS/TEST INJ [id number] 12/01/2013 12/01/2013 [facility] RESULTS/TEST INJ [id number] 12/01/2013 12/01/2013 [facility] RESULTS/TEST INJ [id number] 12/01/2013 12/01/2013 [facility] RESULTS/TEST INJ [id number] 12/01/2013 12/01/2013 [facility] RESULTS/TEST INJ [id number] 12/01/2013 12/01/2013 [facility] RESULTS/TEST INJ [id number] 12/01/2013 12/01/2013 [facility] RESULTS/TEST INJ [id number] 12/01/2013 12/01/2013 [facility] Unknown [id number] 01/21/2014 01/21/2014 [facility] Unknown [id number] 01/21/2014 01/21/2014 [facility] Unknown [id number] 01/21/2014 01/21/2014 [facility] Unknown [id number] 01/21/2014 01/21/2014 [facility] Unknown [id number] 01/21/2014 01/21/2014 [facility] Unknown [id number] 01/21/2014 01/21/2014 [facility] Unknown [id number] 01/21/2014 01/21/2014 [facility] Unknown [id number] 01/21/2014 01/21/2014 [facility] Unknown [id number] 01/21/2014 01/21/2014 [facility] Unknown [id number] 01/21/2014 01/21/2014 [facility] Unknown [id number] 01/21/2014 01/21/2014 [facility] Unknown [id number] 01/21/2014 01/21/2014 [facility] Unknown [id number] 01/21/2014 01/21/2014 [facility] Unknown [id number] 01/21/2014 01/21/2014 [facility] Unknown [id number] 01/21/2014 01/21/2014 [facility] Unknown [id number] 01/21/2014 01/21/2014 [facility] Unknown [id number] 01/21/2014 01/21/2014 [facility] Unknown [id number] 01/21/2014 01/21/2014 [facility] Unknown [id number] 01/21/2014 01/21/2014 [facility] Unknown [id number] 01/21/2014 01/21/2014 [facility] Unknown [id number] 01/21/2014 01/21/2014 [facility] Unknown [id number] 01/21/2014 01/21/2014 [facility] Unknown [id number] 01/21/2014 01/21/2014 [facility] Unknown [id number] 01/21/2014 01/21/2014 [facility] Unknown [id number] 01/21/2014 01/21/2014 [facility] Unknown [id number] 01/21/2014 01/21/2014 [facility] Unknown [id number] 01/21/2014 01/21/2014 [facility] Unknown [id number] 01/21/2014 01/21/2014 [facility] Unknown [id number] 01/21/2014 01/21/2014 [facility] Unknown [id number] 01/21/2014 01/21/2014 [facility] Unknown [id number] 01/21/2014 01/21/2014 [facility] Unknown [id number] 01/21/2014 01/21/2014 [facility] Unknown [id number] 01/21/2014 01/21/2014 [facility] Unknown [id number] 01/21/2014 01/21/2014 [facility] Unknown [id number] 01/21/2014 01/21/2014 [facility] Unknown [id number] 01/21/2014 01/21/2014 [facility] Unknown [id number] 01/21/2014 01/21/2014 [facility] Unknown [id number] 01/21/2014 01/21/2014 [facility] Unknown [id number] 01/21/2014 01/21/2014 [facility] Unknown [id number] 01/21/2014 01/21/2014 [facility] Unknown [id number] 01/26/2014 01/26/2014 [facility] Unknown [id number] 01/26/2014 01/26/2014 [facility] Unknown [id number] 01/26/2014 01/26/2014 [facility] Unknown [id number] 01/26/2014 01/26/2014 [facility] Unknown [id number] 01/26/2014 01/26/2014 [facility] Unknown [id number] 01/26/2014 01/26/2014 [facility] Unknown [id number] 01/26/2014 01/26/2014 [facility] Unknown [id number] 01/26/2014 01/26/2014 [facility] Unknown [id number] 01/26/2014 01/26/2014 [facility] Unknown [id number] 01/26/2014 01/26/2014 [facility] Unknown [id number] 01/26/2014 01/26/2014 [facility] Unknown [id number] 01/26/2014 01/26/2014 [facility] Unknown [id number] 01/26/2014 01/26/2014 [facility] Unknown [id number] 01/26/2014 01/26/2014 [facility] Unknown [id number] 01/26/2014 01/26/2014 [facility] Unknown [id number] 01/26/2014 01/26/2014 [facility] Unknown [id number] 01/26/2014 01/26/2014 [facility] Unknown [id number] 01/26/2014 01/26/2014 [facility] Unknown [id number] 01/26/2014 01/26/2014 [facility] Unknown [id number] 01/26/2014 01/26/2014 [facility] Unknown [id number] 01/26/2014 01/26/2014 [facility] Unknown [id number] 01/26/2014 01/26/2014 [facility] Unknown [id number] 01/26/2014 01/26/2014 [facility] Unknown [id number] 01/26/2014 01/26/2014 [facility] Unknown [id number] 01/26/2014 01/26/2014 [facility] Unknown [id number] 01/26/2014 01/26/2014 [facility] Unknown [id number] 01/26/2014 01/26/2014 [facility] Unknown [id number] 01/26/2014 01/26/2014 [facility] Unknown [id number] 01/26/2014 01/26/2014 [facility] Unknown [id number] 01/26/2014 01/26/2014 [facility] Unknown [id number] 01/26/2014 01/26/2014 [facility] Unknown [id number] 01/26/2014 01/26/2014 [facility] Unknown [id number] 01/26/2014 01/26/2014 [facility] Unknown [id number] 01/26/2014 01/26/2014 [facility] Unknown [id number] 01/26/2014 01/26/2014 [facility] Unknown [id number] 01/26/2014 01/26/2014 [facility] Unknown [id number] 01/26/2014 01/26/2014 [facility] Unknown [id number] 01/26/2014 01/26/2014 [facility] Unknown [id number] 01/26/2014 01/26/2014 [facility] Follow-Up [id number] 03/11/2014 03/11/2014 [facility] Follow-Up [id number] 03/11/2014 03/11/2014 [facility] Follow-Up [id number] 03/11/2014 03/11/2014 [facility] Follow-Up [id number] 03/11/2014 03/11/2014 [facility] Follow-Up [id number] 03/11/2014 03/11/2014 [facility] Follow-Up [id number] 03/11/2014 03/11/2014 [facility] Follow-Up [id number] 03/11/2014 03/11/2014 [facility] Follow-Up [id number] 03/11/2014 03/11/2014 [facility] Follow-Up [id number] 03/11/2014 03/11/2014 [facility] Follow-Up [id number] 03/11/2014 03/11/2014 [facility] Follow-Up [id number] 03/11/2014 03/11/2014 [facility] Follow-Up [id number] 03/11/2014 03/11/2014 [facility] Follow-Up [id number] 03/11/2014 03/11/2014 [facility] Follow-Up [id number] 03/11/2014 03/11/2014 [facility] Follow-Up [id number] 03/11/2014 03/11/2014 [facility] Follow-Up [id number] 03/11/2014 03/11/2014 [facility] Follow-Up [id number] 03/11/2014 03/11/2014 [facility] Follow-Up [id number] 03/11/2014 03/11/2014 [facility] Follow-Up [id number] 03/11/2014 03/11/2014 [facility] Follow-Up [id number] 03/11/2014 03/11/2014 [facility] Follow-Up [id number] 03/11/2014 03/11/2014 [facility] Follow-Up [id number] 03/11/2014 03/11/2014 [facility] Follow-Up [id number] 03/11/2014 03/11/2014 [facility] Follow-Up [id number] 03/11/2014 03/11/2014 [facility] Follow-Up [id number] 03/11/2014 03/11/2014 [facility] Follow-Up [id number] 03/11/2014 03/11/2014 [facility] Follow-Up [id number] 03/11/2014 03/11/2014 [facility] Follow-Up [id number] 03/11/2014 03/11/2014 [facility] Follow-Up [id number] 03/11/2014 03/11/2014 [facility] Follow-Up [id number] 03/11/2014 03/11/2014 [facility] Follow-Up [id number] 03/11/2014 03/11/2014 [facility] Follow-Up [id number] 03/11/2014 03/11/2014 [facility] Follow-Up [id number] 03/11/2014 03/11/2014 [facility] Follow-Up [id number] 03/11/2014 03/11/2014 [facility] Follow-Up [id number] 03/11/2014 03/11/2014 [facility] Follow-Up [id number] 03/11/2014 03/11/2014 [facility] Follow-Up [id number] 03/11/2014 03/11/2014 [facility] Follow-Up [id number] 03/11/2014 03/11/2014 [facility] follow up from ER [id number] 04/26/2014 04/26/2014 [facility] follow up from ER [id number] 04/26/2014 04/26/2014 [facility] follow up from ER [id number] 04/26/2014 04/26/2014 [facility] follow up from ER [id number] 04/26/2014 04/26/2014 [facility] follow up from ER [id number] 04/26/2014 04/26/2014 [facility] follow up from ER [id number] 04/26/2014 04/26/2014 [facility] follow up from ER [id number] 04/26/2014 04/26/2014 [facility] follow up from ER [id number] 04/26/2014 04/26/2014 [facility] follow up from ER [id number] 04/26/2014 04/26/2014 [facility] follow up from ER [id number] 04/26/2014 04/26/2014 [facility] follow up from ER [id number] 04/26/2014 04/26/2014 [facility] follow up from ER [id number] 04/26/2014 04/26/2014 [facility] follow up from ER [id number] 04/26/2014 04/26/2014 [facility] follow up from ER [id number] 04/26/2014 04/26/2014 [facility] follow up from ER [id number] 04/26/2014 04/26/2014 [facility] follow up from ER [id number] 04/26/2014 04/26/2014 [facility] follow up from ER [id number] 04/26/2014 04/26/2014 [facility] follow up from ER [id number] 04/26/2014 04/26/2014 [facility] follow up from ER [id number] 04/26/2014 04/26/2014 [facility] follow up from ER [id number] 04/26/2014 04/26/2014 [facility] follow up from ER [id number] 04/26/2014 04/26/2014 [facility] follow up from ER [id number] 04/26/2014 04/26/2014 [facility] follow up from ER [id number] 04/26/2014 04/26/2014 [facility] follow up from ER [id number] 04/26/2014 04/26/2014 [facility] follow up from ER [id number] 04/26/2014 04/26/2014 [facility] follow up from ER [id number] 04/26/2014 04/26/2014 [facility] follow up from ER [id number] 04/26/2014 04/26/2014 [facility] follow up from ER [id number] 04/26/2014 04/26/2014 [facility] follow up from ER [id number] 04/26/2014 04/26/2014 [facility] follow up from ER [id number] 04/26/2014 04/26/2014 [facility] follow up from ER [id number] 04/26/2014 04/26/2014 [facility] follow up from ER [id number] 04/26/2014 04/26/2014 [facility] follow up from ER [id number] 04/26/2014 04/26/2014 [facility] follow up from ER [id number] 04/26/2014 04/26/2014 [facility] follow up from ER [id number] 04/26/2014 04/26/2014 [facility] follow up from ER [id number] 04/26/2014 04/26/2014 [facility] follow up from ER [id number] 04/26/2014 04/26/2014 [facility] follow up from ER [id number] 04/26/2014 04/26/2014 [facility] Unknown [id number] 05/03/2014 05/03/2014 [facility] Unknown [id number] 05/03/2014 05/03/2014 [facility] Unknown [id number] 05/03/2014 05/03/2014 [facility] Unknown [id number] 05/03/2014 05/03/2014 [facility] Unknown [id number] 05/03/2014 05/03/2014 [facility] Unknown [id number] 05/03/2014 05/03/2014 [facility] Unknown [id number] 05/03/2014 05/03/2014 [facility] Unknown [id number] 05/03/2014 05/03/2014 [facility] Unknown [id number] 05/03/2014 05/03/2014 [facility] Unknown [id number] 05/03/2014 05/03/2014 [facility] Unknown [id number] 05/03/2014 05/03/2014 [facility] Unknown [id number] 05/03/2014 05/03/2014 [facility] Unknown [id number] 05/03/2014 05/03/2014 [facility] Unknown [id number] 05/03/2014 05/03/2014 [facility] Unknown [id number] 05/03/2014 05/03/2014 [facility] Unknown [id number] 05/03/2014 05/03/2014 [facility] Unknown [id number] 05/03/2014 05/03/2014 [facility] Unknown [id number] 05/03/2014 05/03/2014 [facility] Unknown [id number] 05/03/2014 05/03/2014 [facility] Unknown [id number] 05/03/2014 05/03/2014 [facility] Unknown [id number] 05/03/2014 05/03/2014 [facility] Unknown [id number] 05/03/2014 05/03/2014 [facility] Unknown [id number] 05/03/2014 05/03/2014 [facility] Unknown [id number] 05/03/2014 05/03/2014 [facility] Unknown [id number] 05/03/2014 05/03/2014 [facility] Unknown [id number] 05/03/2014 05/03/2014 [facility] Unknown [id number] 05/03/2014 05/03/2014 [facility] Unknown [id number] 05/03/2014 05/03/2014 [facility] Unknown [id number] 05/03/2014 05/03/2014 [facility] Unknown [id number] 05/03/2014 05/03/2014 [facility] Unknown [id number] 05/03/2014 05/03/2014 [facility] Unknown [id number] 05/03/2014 05/03/2014 [facility] Unknown [id number] 05/03/2014 05/03/2014 [facility] Unknown [id number] 05/03/2014 05/03/2014 [facility] Unknown [id number] 05/03/2014 05/03/2014 [facility] Unknown [id number] 05/03/2014 05/03/2014 [facility] Unknown [id number] 05/03/2014 05/03/2014 [facility] Unknown [id number] 05/03/2014 05/03/2014 [facility] Unknown [id number] 05/10/2014 05/10/2014 [facility] Unknown [id number] 05/10/2014 05/10/2014 [facility] Unknown [id number] 05/10/2014 05/10/2014 [facility] Unknown [id number] 05/10/2014 05/10/2014 [facility] Unknown [id number] 05/10/2014 05/10/2014 [facility] Unknown [id number] 05/10/2014 05/10/2014 [facility] Unknown [id number] 05/10/2014 05/10/2014 [facility] Unknown [id number] 05/10/2014 05/10/2014 [facility] Unknown [id number] 05/10/2014 05/10/2014 [facility] Unknown [id number] 05/10/2014 05/10/2014 [facility] Unknown [id number] 05/10/2014 05/10/2014 [facility] Unknown [id number] 05/10/2014 05/10/2014 [facility] Unknown [id number] 05/10/2014 05/10/2014 [facility] Unknown [id number] 05/10/2014 05/10/2014 [facility] Unknown [id number] 05/10/2014 05/10/2014 [facility] Unknown [id number] 05/10/2014 05/10/2014 [facility] Unknown [id number] 05/10/2014 05/10/2014 [facility] Unknown [id number] 05/10/2014 05/10/2014 [facility] Unknown [id number] 05/10/2014 05/10/2014 [facility] Unknown [id number] 05/10/2014 05/10/2014 [facility] [facility] Unknown [id number] 05/10/2014 05/10/2014 [facility] Unknown [id number] 05/10/2014 05/10/2014 [facility] Unknown [id number] 05/10/2014 05/10/2014 [facility] Unknown [id number] 05/10/2014 05/10/2014 [facility] Unknown [id number] 05/10/2014 05/10/2014 [facility] Unknown [id number] 05/10/2014 05/10/2014 [facility] Unknown [id number] 05/10/2014 05/10/2014 [facility] Unknown [id number] 05/10/2014 05/10/2014 [facility] Unknown [id number] 05/10/2014 05/10/2014 [facility] Unknown [id number] 05/10/2014 05/10/2014 [facility] Unknown [id number] 05/10/2014 05/10/2014 [facility] Unknown [id number] 05/10/2014 05/10/2014 [facility] Unknown [id number] 05/10/2014 05/10/2014 [facility] Unknown [id number] 05/10/2014 05/10/2014 [facility] Unknown [id number] 05/10/2014 05/10/2014 [facility] Unknown [id number] 05/10/2014 05/10/2014 [facility] Unknown [id number] 05/10/2014 05/10/2014 [facility] Unknown [id number] 05/10/2014 05/10/2014 [facility] RESULTS [id number] 06/10/2014 06/10/2014 [facility] RESULTS [id number] 06/10/2014 06/10/2014 [facility] RESULTS [id number] 06/10/2014 06/10/2014 [facility] RESULTS [id number] 06/10/2014 06/10/2014 [facility] RESULTS [id number] 06/10/2014 06/10/2014 [facility] RESULTS [id number] 06/10/2014 06/10/2014 [facility] RESULTS [id number] 06/10/2014 06/10/2014 [facility] RESULTS [id number] 06/10/2014 06/10/2014 [facility] RESULTS [id number] 06/10/2014 06/10/2014 [facility] RESULTS [id number] 06/10/2014 06/10/2014 [facility] RESULTS [id number] 06/10/2014 06/10/2014 [facility] RESULTS [id number] 06/10/2014 06/10/2014 [facility] RESULTS [id number] 06/10/2014 06/10/2014 [facility] RESULTS [id number] 06/10/2014 06/10/2014 [facility] RESULTS [id number] 06/10/2014 06/10/2014 [facility] RESULTS [id number] 06/10/2014 06/10/2014 [facility] RESULTS [id number] 06/10/2014 06/10/2014 [facility] RESULTS [id number] 06/10/2014 06/10/2014 [facility] RESULTS [id number] 06/10/2014 06/10/2014 [facility] RESULTS [id number] 06/10/2014 06/10/2014 [facility] RESULTS [id number] 06/10/2014 06/10/2014 [facility] RESULTS [id number] 06/10/2014 06/10/2014 [facility] RESULTS [id number] 06/10/2014 06/10/2014 [facility] RESULTS [id number] 06/10/2014 06/10/2014 [facility] RESULTS [id number] 06/10/2014 06/10/2014 [facility] RESULTS [id number] 06/10/2014 06/10/2014 [facility] RESULTS [id number] 06/10/2014 06/10/2014 [facility] RESULTS [id number] 06/10/2014 06/10/2014 [facility] Lab Report [id number] Zhao Parks MD 08/15/2014 08/15/2014 [facility] [id number] 09/16/2014 09/16/2014 [facility] [id number] 09/16/2014 09/16/2014 [facility] [id number] 09/16/2014 09/16/2014 [facility] [id number] 09/16/2014 09/16/2014 [facility] [id number] 09/16/2014 09/16/2014 [facility] [id number] 09/16/2014 09/16/2014 [facility] [id number] 09/16/2014 09/16/2014 [facility] [id number] 09/16/2014 09/16/2014 [facility] [id number] 09/16/2014 09/16/2014 [facility] [id number] 09/16/2014 09/16/2014 [facility] [id number] 09/16/2014 09/16/2014 [facility] [id number] 09/16/2014 09/16/2014 [facility] [id number] 09/16/2014 09/16/2014 [facility] [id number] 09/16/2014 09/16/2014 [facility] [id number] 09/16/2014 09/16/2014 [facility] [id number] 09/16/2014 09/16/2014 [facility] [id number] 09/16/2014 09/16/2014 [facility] [id number] 09/16/2014 09/16/2014 [facility] [id number] 09/16/2014 09/16/2014 [facility] [id number] 09/16/2014 09/16/2014 [facility] [id number] 09/16/2014 09/16/2014 [facility] [id number] 09/16/2014 09/16/2014 [facility] [id number] 09/16/2014 09/16/2014 [facility] [id number] 09/16/2014 09/16/2014 [facility] [id number] 09/16/2014 09/16/2014 [facility] [id number] 09/16/2014 09/16/2014 [facility] [id number] 09/16/2014 09/16/2014 [facility] LAB RESULTS [id number] 09/30/2014 09/30/2014 [facility] RESULTS [id number] 09/30/2014 09/30/2014 [facility] RESULTS [id number] 09/30/2014 09/30/2014 [facility] RESULTS [id number] 09/30/2014 09/30/2014 [facility] RESULTS [id number] 09/30/2014 09/30/2014 [facility] RESULTS [id number] 09/30/2014 09/30/2014 [facility] RESULTS [id number] 09/30/2014 09/30/2014 [facility] RESULTS [id number] 09/30/2014 09/30/2014 [facility] RESULTS [id number] 09/30/2014 09/30/2014 [facility] RESULTS [id number] 09/30/2014 09/30/2014 [facility] RESULTS [id number] 09/30/2014 09/30/2014 [facility] RESULTS [id number] 09/30/2014 09/30/2014 [facility] RESULTS [id number] 09/30/2014 09/30/2014 [facility] RESULTS [id number] 09/30/2014 09/30/2014 [facility] RESULTS [id number] 09/30/2014 09/30/2014 [facility] RESULTS [id number] 09/30/2014 09/30/2014 [facility] RESULTS [id number] 09/30/2014 09/30/2014 [facility] RESULTS [id number] 09/30/2014 09/30/2014 [facility] [id number] 09/30/2014 09/30/2014 [facility] RESULTS [id number] 09/30/2014 09/30/2014 [facility] RESULTS [id number] 09/30/2014 09/30/2014 [facility] RESULTS [id number] 09/30/2014 09/30/2014 [facility] RESULTS [id number] 09/30/2014 09/30/2014 [facility] RESULTS [id number] 09/30/2014 09/30/2014 [facility] RESULTS [id number] 09/30/2014 09/30/2014 [facility] RESULTS [id number] 09/30/2014 09/30/2014 [facility] [id number] 01/19/2015 01/19/2015 [facility] [id number] 01/19/2015 01/19/2015 [facility] [id number] 01/19/2015 01/19/2015 [facility] [id number] 01/19/2015 01/19/2015 [facility] [id number] 01/19/2015 01/19/2015 [facility] [id number] 01/19/2015 01/19/2015 [facility] [id number] 01/19/2015 01/19/2015 [facility] [id number] 01/19/2015 01/19/2015 [facility] [id number] 01/19/2015 01/19/2015 [facility] [id number] 01/19/2015 01/19/2015 [facility] [id number] 01/19/2015 01/19/2015 [facility] [id number] 01/19/2015 01/19/2015 [facility] [id number] 01/19/2015 01/19/2015 [facility] [id number] 01/19/2015 01/19/2015 [facility] [id number] 01/19/2015 01/19/2015 [facility] [id number] 01/19/2015 01/19/2015 [facility] [id number] 01/19/2015 01/19/2015 [facility] [id number] 01/19/2015 01/19/2015 [facility] [id number] 01/19/2015 01/19/2015 [facility] [id number] 01/19/2015 01/19/2015 [facility] [id number] 01/19/2015 01/19/2015 [facility] [id number] 01/19/2015 01/19/2015 [facility] [id number] 01/19/2015 01/19/2015 [facility] [id number] 01/19/2015 01/19/2015 [facility] [id number] 01/19/2015 01/19/2015 [facility] COUGH, CONGESTION AND FLU LIKE SYMPTOMS [id number] 01/31/2015 01/31/2015 [facility] COUGH, CONGESTION AND FLU LIKE SYMPTOMS [id number] 01/31/2015 01/31/2015 [facility] COUGH, CONGESTION AND FLU LIKE SYMPTOMS [id number] 01/31/2015 01/31/2015 [facility] COUGH, CONGESTION AND FLU LIKE SYMPTOMS [id number] 01/31/2015 01/31/2015 [facility] COUGH, CONGESTION AND FLU LIKE SYMPTOMS [id number] 01/31/2015 01/31/2015 [facility] COUGH, CONGESTION AND FLU LIKE SYMPTOMS [id number] 01/31/2015 01/31/2015 [facility] COUGH, CONGESTION AND FLU LIKE SYMPTOMS [id number] 01/31/2015 01/31/2015 [facility] COUGH, CONGESTION AND FLU LIKE SYMPTOMS [id number] 01/31/2015 01/31/2015 [facility] COUGH, CONGESTION AND FLU LIKE SYMPTOMS [id number] 01/31/2015 01/31/2015 [facility] COUGH, CONGESTION AND FLU LIKE SYMPTOMS [id number] 01/31/2015 01/31/2015 [facility] COUGH, CONGESTION AND FLU LIKE SYMPTOMS [id number] 01/31/2015 01/31/2015 [facility] COUGH, CONGESTION AND FLU LIKE SYMPTOMS [id number] 01/31/2015 01/31/2015 [facility] COUGH, CONGESTION AND FLU LIKE SYMPTOMS [id number] 01/31/2015 01/31/2015 [facility] COUGH, CONGESTION AND FLU LIKE SYMPTOMS [id number] 01/31/2015 01/31/2015 [facility] COUGH, CONGESTION AND FLU LIKE SYMPTOMS [id number] 01/31/2015 01/31/2015 [facility] COUGH, CONGESTION AND FLU LIKE SYMPTOMS [id number] 01/31/2015 01/31/2015 [facility] COUGH, CONGESTION AND FLU LIKE SYMPTOMS [id number] 01/31/2015 01/31/2015 [facility] COUGH, CONGESTION AND FLU LIKE SYMPTOMS [id number] 01/31/2015 01/31/2015 [facility] COUGH, CONGESTION AND FLU LIKE SYMPTOMS [id number] 01/31/2015 01/31/2015 [facility] COUGH, CONGESTION AND FLU LIKE SYMPTOMS [id number] 01/31/2015 01/31/2015 [facility] COUGH, CONGESTION AND FLU LIKE SYMPTOMS [id number] 01/31/2015 01/31/2015 [facility] COUGH, CONGESTION AND FLU LIKE SYMPTOMS [id number] 01/31/2015 01/31/2015 [facility] COUGH, CONGESTION AND FLU LIKE SYMPTOMS [id number] 01/31/2015 01/31/2015 [facility] COUGH, CONGESTION AND FLU LIKE SYMPTOMS [id number] 01/31/2015 01/31/2015 [facility] COUGH, CONGESTION AND FLU LIKE SYMPTOMS [id number] 01/31/2015 01/31/2015 [facility] Unknown [id number] 01/31/2015 01/31/2015 [facility] Unknown [id number] 01/31/2015 01/31/2015 [facility] Unknown [id number] 01/31/2015 01/31/2015 [facility] Unknown [id number] 01/31/2015 01/31/2015 [facility] Unknown [id number] 01/31/2015 01/31/2015 [facility] Unknown [id number] 01/31/2015 01/31/2015 [facility] Unknown [id number] 01/31/2015 01/31/2015 [facility] Unknown [id number] 01/31/2015 01/31/2015 [facility] Unknown [id number] 01/31/2015 01/31/2015 [facility] Unknown [id number] 01/31/2015 01/31/2015 [facility] Unknown [id number] 01/31/2015 01/31/2015 [facility] Unknown [id number] 01/31/2015 01/31/2015 [facility] Unknown [id number] 01/31/2015 01/31/2015 [facility] Unknown [id number] 01/31/2015 01/31/2015 [facility] Unknown [id number] 01/31/2015 01/31/2015 [facility] Unknown [id number] 01/31/2015 01/31/2015 [facility] Unknown [id number] 01/31/2015 01/31/2015 [facility] Unknown [id number] 01/31/2015 01/31/2015 [facility] Unknown [id number] 01/31/2015 01/31/2015 [facility] Unknown [id number] 01/31/2015 01/31/2015 [facility] Unknown [id number] 01/31/2015 01/31/2015 [facility] Unknown [id number] 01/31/2015 01/31/2015 [facility] Unknown [id number] 01/31/2015 01/31/2015 [facility] Unknown [id number] 01/31/2015 01/31/2015 [facility] Unknown [id number] 01/31/2015 01/31/2015 [facility] RESULTS [id number] 02/07/2015 02/07/2015 [facility] RESULTS [id number] 02/07/2015 02/07/2015 [facility] RESULTS [id number] 02/07/2015 02/07/2015 [facility] RESULTS [id number] 02/07/2015 02/07/2015 [facility] RESULTS [id number] 02/07/2015 02/07/2015 [facility] RESULTS [id number] 02/07/2015 02/07/2015 [facility] RESULTS [id number] 02/07/2015 02/07/2015 [facility] RESULTS [id number] 02/07/2015 02/07/2015 [facility] RESULTS [id number] 02/07/2015 02/07/2015 [facility] RESULTS [id number] 02/07/2015 02/07/2015 [facility] RESULTS [id number] 02/07/2015 02/07/2015 [facility] RESULTS [id number] 02/07/2015 02/07/2015 [facility] RESULTS [id number] 02/07/2015 02/07/2015 [facility] RESULTS [id number] 02/07/2015 02/07/2015 [facility] RESULTS [id number] 02/07/2015 02/07/2015 [facility] RESULTS [id number] 02/07/2015 02/07/2015 [facility] RESULTS [id number] 02/07/2015 02/07/2015 [facility] RESULTS [id number] 02/07/2015 02/07/2015 [facility] RESULTS [id number] 02/07/2015 02/07/2015 [facility] RESULTS [id number] 02/07/2015 02/07/2015 [facility] RESULTS [id number] 02/07/2015 02/07/2015 [facility] RESULTS [id number] 02/07/2015 02/07/2015 [facility] RESULTS [id number] 02/07/2015 02/07/2015 [facility] RESULTS [id number] 02/07/2015 02/07/2015 [facility] RESULTS [id number] 02/07/2015 02/07/2015 [facility] RIGHT EYE PAIN [id number] 02/16/2015 02/16/2015 [facility] RIGHT EYE PAIN [id number] 02/16/2015 02/16/2015 [facility] RIGHT EYE PAIN [id number] 02/16/2015 02/16/2015 [facility] RIGHT EYE PAIN [id number] 02/16/2015 02/16/2015 [facility] RIGHT EYE PAIN [id number] 02/16/2015 02/16/2015 [facility] RIGHT EYE PAIN [id number] 02/16/2015 02/16/2015 [facility] RIGHT E[facility] PAIN [id number] 02/16/2015 02/16/2015 [facility] RIGHT E[facility] PAIN [id number] 02/16/2015 02/16/2015 [facility] [id number] 02/16/2015 02/16/2015 [facility] RIGHT EYE PAIN [id number] 02/16/2015 02/16/2015 [facility] RIGHT EYE PAIN [id number] 02/16/2015 02/16/2015 [facility] RIGHT E[facility] PA[facility] [id number] 02/16/2015 02/16/2015 [facility] RIGHT E[facility] [id number] 02/16/2015 02/16/2015 [facility] RIGHT EYE PAIN [id number] 02/16/2015 02/16/2015 [facility] RIGHT E[facility] [id number] 02/16/2015 02/16/2015 [facility] RIGHT E[facility] PA[facility] [id number] 02/16/2015 02/16/2015 [facility] RIGHT E[facility] PAIN [id number] 02/16/2015 02/16/2015 [facility] RIGHT E[facility] [id number] 02/16/2015 02/16/2015 [facility] RIGHT EYE PAIN [id number] 02/16/2015 02/16/2015 [facility] RIGHT E[facility] PAIN [id number] 02/16/2015 02/16/2015 [facility] RIGHT EYE PAIN [id number] 02/16/2015 02/16/2015 [facility] [id number] 02/16/2015 02/16/2015 [facility] [id number] 02/16/2015 02/16/2015 [facility] RIGHT E[facility] [id number] 02/16/2015 02/16/2015 [facility] Unknown [id number] 05/20/2015 05/20/2015 [facility] Unknown [id number] 05/20/2015 05/20/2015 [facility] Unknown [id number] 05/20/2015 05/20/2015 [facility] Unknown [id number] 05/20/2015 05/20/2015 [facility] Unknown [id number] 05/20/2015 05/20/2015 [facility] Unknown [id number] 05/20/2015 05/20/2015 [facility] Unknown [id number] 05/20/2015 05/20/2015 [facility] Unknown [id number] 05/20/2015 05/20/2015 [facility] Unknown [id number] 05/20/2015 05/20/2015 [facility] Unknown [id number] 05/20/2015 05/20/2015 [facility] Unknown [id number] 05/20/2015 05/20/2015 [facility] Unknown [id number] 05/20/2015 05/20/2015 [facility] Unknown [id number] 05/20/2015 05/20/2015 [facility] Unknown [id number] 05/20/2015 05/20/2015 [facility] Unknown [id number] 05/20/2015 05/20/2015 [facility] Unknown [id number] 05/20/2015 05/20/2015 [facility] Unknown [id number] 05/20/2015 05/20/2015 [facility] Unknown [id number] 05/20/2015 05/20/2015 [facility] Unknown [id number] 05/20/2015 05/20/2015 [facility] Unknown [id number] 05/20/2015 05/20/2015 [facility] Unknown [id number] 05/20/2015 05/20/2015 [facility] Unknown [id number] 05/20/2015 05/20/2015 [facility] Unknown [id number] 05/20/2015 05/20/2015 [facility] DIABETIC CHK [id number] 06/10/2015 06/10/2015 [facility] DIABETIC CHK [id number] 06/10/2015 06/10/2015 [facility] DIABETIC CHK [id number] 06/10/2015 06/10/2015 [facility] DIABETIC CHK [id number] 06/10/2015 06/10/2015 [facility] DIABETIC CHK [id number] 06/10/2015 06/10/2015 [facility] DIABETIC CHK [id number] 06/10/2015 06/10/2015 [facility] DIABETIC CHK [id number] 06/10/2015 06/10/2015 [facility] DIABETIC CHK [id number] 06/10/2015 06/10/2015 [facility] DIABETIC CHK [id number] 06/10/2015 06/10/2015 [facility] DIABETIC CHK [id number] 06/10/2015 06/10/2015 [facility] [facility] DIABETIC CHK [id number] 06/10/2015 06/10/2015 [facility] DIABETIC CHK [id number] 06/10/2015 06/10/2015 [facility] DIABETIC CHK [id number] 06/10/2015 06/10/2015 [facility] DIABETIC CHK [id number] 06/10/2015 06/10/2015 [facility] DIABETIC CHK [id number] 06/10/2015 06/10/2015 [facility] DIABETIC CHK [id number] 06/10/2015 06/10/2015 [facility] DIABETIC CHK [id number] 06/10/2015 06/10/2015 [facility] DIABETIC CHK [id number] 06/10/2015 06/10/2015 [facility] DIABETIC CHK [id number] 06/10/2015 06/10/2015 [facility] DIABETIC CHK [id number] 06/10/2015 06/10/2015 [facility] DIABETIC CHK [id number] 06/10/2015 06/10/2015 [facility] DIABETIC CHK [id number] 06/10/2015 06/10/2015 [facility] F/U pain is not better [id number] 06/17/2015 06/17/2015 [facility] F/U pain is not better [id number] 06/17/2015 06/17/2015 [facility] F/U pain is not better [id number] 06/17/2015 06/17/2015 [facility] F/U pain is not better [id number] 06/17/2015 06/17/2015 [facility] F/U pain is not better [id number] 06/17/2015 06/17/2015 [facility] F/U pain is not better [id number] 06/17/2015 06/17/2015 [facility] F/U pain is not better [id number] 06/17/2015 06/17/2015 [facility] F/U pain is not better [id number] 06/17/2015 06/17/2015 [facility] F/U pain is not better [id number] 06/17/2015 06/17/2015 [facility] F/U pain is not better [id number] 06/17/2015 06/17/2015 [facility] F/U pain is not better [id number] 06/17/2015 06/17/2015 [facility] F/U pain is not better [id number] 06/17/2015 06/17/2015 [facility] F/U pain is not better [id number] 06/17/2015 06/17/2015 [facility] F/U pain is not better [id number] 06/17/2015 06/17/2015 [facility] F/U pain is not better [id number] 06/17/2015 06/17/2015 [facility] F/U pain is not better [id number] 06/17/2015 06/17/2015 [facility] F/U pain is not better [id number] 06/17/2015 06/17/2015 [facility] F/U pain is not better [id number] 06/17/2015 06/17/2015 [facility] F/U pain is not better [id number] 06/17/2015 06/17/2015 [facility] F/U pain is not better [id number] 06/17/2015 06/17/2015 [facility] F/U pain is not better [id number] 06/17/2015 06/17/2015 [facility] F/U pain is not better [id number] 06/17/2015 06/17/2015 [facility] LAB RESULTS [id number] 07/04/2015 07/04/2015 [facility] LAB RESULTS [id number] 07/04/2015 07/04/2015 [facility] LAB RESULTS [id number] 07/04/2015 07/04/2015 [facility] LAB RESULTS [id number] 07/04/2015 07/04/2015 [facility] LAB RESULTS [id number] 07/04/2015 07/04/2015 [facility] LAB RESULTS [id number] 07/04/2015 07/04/2015 [facility] LAB RESULTS [id number] 07/04/2015 07/04/2015 [facility] LAB RESULTS [id number] 07/04/2015 07/04/2015 [facility] LAB RESULTS [id number] 07/04/2015 07/04/2015 [facility] LAB RESULTS [id number] 07/04/2015 07/04/2015 [facility] LAB RESULTS [id number] 07/04/2015 07/04/2015 [facility] LAB RESULTS [id number] 07/04/2015 07/04/2015 [facility] LAB RESULTS [id number] 07/04/2015 07/04/2015 [facility] LAB RESULTS [id number] 07/04/2015 07/04/2015 [facility] LAB RESULTS [id number] 07/04/2015 07/04/2015 [facility] LAB RESULTS [id number] 07/04/2015 07/04/2015 [facility] LAB RESULTS [id number] 07/04/2015 07/04/2015 [facility] LAB RESULTS [id number] 07/04/2015 07/04/2015 [facility] LAB RESULTS [id number] 07/04/2015 07/04/2015 [facility] LAB RESULTS [id number] 07/04/2015 07/04/2015 [facility] LAB RESULTS [id number] 07/04/2015 07/04/2015 [facility] refill [id number] 08/31/2015 08/31/2015 [facility] refill [id number] 08/31/2015 08/31/2015 [facility] refill [id number] 08/31/2015 08/31/2015 [facility] refill [id number] 08/31/2015 08/31/2015 [facility] refill [id number] 08/31/2015 08/31/2015 [facility] refill [id number] 08/31/2015 08/31/2015 [facility] refill [id number] 08/31/2015 08/31/2015 [facility] refill [id number] 08/31/2015 08/31/2015 [facility] refill [id number] 08/31/2015 08/31/2015 [facility] refill [id number] 08/31/2015 08/31/2015 [facility] refill [id number] 08/31/2015 08/31/2015 [facility] refill [id number] 08/31/2015 08/31/2015 [facility] refill [id number] 08/31/2015 08/31/2015 [facility] refill [id number] 08/31/2015 08/31/2015 [facility] refill [id number] 08/31/2015 08/31/2015 [facility] refill [id number] 08/31/2015 08/31/2015 [facility] refill [id number] 08/31/2015 08/31/2015 [facility] refill [id number] 08/31/2015 08/31/2015 [facility] refill [id number] 08/31/2015 08/31/2015 [facility] refill [id number] 08/31/2015 08/31/2015 [facility] refill [id number] 08/31/2015 08/31/2015 [facility] 3 MONTH FOLLOW UP [id number] 09/14/2015 09/14/2015 [facility] 3 MONTH FOLLOW UP [id number] 09/14/2015 09/14/2015 [facility] 3 MONTH FOLLOW UP [id number] 09/14/2015 09/14/2015 [facility] 3 MONTH FOLLOW UP [id number] 09/14/2015 09/14/2015 [facility] 3 MONTH FOLLOW UP [id number] 09/14/2015 09/14/2015 [facility] 3 MONTH FOLLOW UP [id number] 09/14/2015 09/14/2015 [facility] 3 MONTH FOLLOW UP [id number] 09/14/2015 09/14/2015 [facility] 3 MONTH FOLLOW UP [id number] 09/14/2015 09/14/2015 [facility] 3 MONTH FOLLOW UP [id number] 09/14/2015 09/14/2015 [facility] 3 MONTH FOLLOW UP [id number] 09/14/2015 09/14/2015 [facility] 3 MONTH FOLLOW UP [id number] 09/14/2015 09/14/2015 [facility] 3 MONTH FOLLOW UP [id number] 09/14/2015 09/14/2015 [facility] 3 MONTH FOLLOW UP [id number] 09/14/2015 09/14/2015 [facility] 3 MONTH FOLLOW UP [id number] 09/14/2015 09/14/2015 [facility] 3 MONTH FOLLOW UP [id number] 09/14/2015 09/14/2015 [facility] 3 MONTH FOLLOW UP [id number] 09/14/2015 09/14/2015 [facility] 3 MONTH FOLLOW UP [id number] 09/14/2015 09/14/2015 [facility] 3 MONTH FOLLOW UP [id number] 09/14/2015 09/14/2015 [facility] 3 MONTH FOLLOW UP [id number] 09/14/2015 09/14/2015 [facility] 3 MONTH FOLLOW UP [id number] 09/14/2015 09/14/2015 [facility] physical exam [id number] 09/28/2015 09/28/2015 [facility] physical exam [id number] 09/28/2015 09/28/2015 [facility] physical exam [id number] 09/28/2015 09/28/2015 [facility] physical exam [id number] 09/28/2015 09/28/2015 [facility] physical exam [id number] 09/28/2015 09/28/2015 [facility] physical exam [id number] 09/28/2015 09/28/2015 [facility] physical exam [id number] 09/28/2015 09/28/2015 [facility] physical exam [id number] 09/28/2015 09/28/2015 [facility] physical exam [id number] 09/28/2015 09/28/2015 [facility] physical exam [id number] 09/28/2015 09/28/2015 [facility] physical exam [id number] 09/28/2015 09/28/2015 [facility] physical exam [id number] 09/28/2015 09/28/2015 [facility] physical exam [id number] 09/28/2015 09/28/2015 [facility] physical exam [id number] 09/28/2015 09/28/2015 [facility] physical exam [id number] 09/28/2015 09/28/2015 [facility] physical exam [id number] 09/28/2015 09/28/2015 [facility] physical exam [id number] 09/28/2015 09/28/2015 [facility] physical exam [id number] 09/28/2015 09/28/2015 [facility] physical exam [id number] 09/28/2015 09/28/2015 [facility] medication change [id number] 11/01/2015 11/01/2015 [facility] medication change [id number] 11/01/2015 11/01/2015 [facility] medication change [id number] 11/01/2015 11/01/2015 [facility] medication change [id number] 11/01/2015 11/01/2015 [facility] medication change [id number] 11/01/2015 11/01/2015 [facility] medication change [id number] 11/01/2015 11/01/2015 [facility] medication change [id number] 11/01/2015 11/01/2015 [facility] medication change [id number] 11/01/2015 11/01/2015 [facility] medication change [id number] 11/01/2015 11/01/2015 [facility] medication change [id number] 11/01/2015 11/01/2015 [facility] medication change [id number] 11/01/2015 11/01/2015 [facility] medication change [id number] 11/01/2015 11/01/2015 [facility] medication change [id number] 11/01/2015 11/01/2015 [facility] medication change [id number] 11/01/2015 11/01/2015 [facility] medication change [id number] 11/01/2015 11/01/2015 [facility] [facility] medication change [id number] 11/01/2015 11/01/2015 [facility] medication change [id number] 11/01/2015 11/01/2015 [facility] medication change [id number] 11/01/2015 11/01/2015 [facility] follow up from [facility] [id number] 12/05/2015 12/05/2015 [facility] follow up from [facility] [id number] 12/05/2015 12/05/2015 [facility] follow up from [facility] [id number] 12/05/2015 12/05/2015 [facility] follow up from [facility] [id number] 12/05/2015 12/05/2015 [facility] follow up from [facility] [id number] 12/05/2015 12/05/2015 [facility] follow up from [facility] [id number] 12/05/2015 12/05/2015 [facility] follow up from [facility] [id number] 12/05/2015 12/05/2015 [facility] follow up from [facility] [id number] 12/05/2015 12/05/2015 [facility] follow up from [facility] [id number] 12/05/2015 12/05/2015 [facility] follow up from [facility] [id number] 12/05/2015 12/05/2015 [facility] follow up from [facility] [id number] 12/05/2015 12/05/2015 [facility] follow up from [facility] [id number] 12/05/2015 12/05/2015 [facility] follow up from [facility] [id number] 12/05/2015 12/05/2015 [facility] follow up from [facility] [id number] 12/05/2015 12/05/2015 [facility] follow up from [facility] [id number] 12/05/2015 12/05/2015 [facility] follow up from [facility] [id number] 12/05/2015 12/05/2015 [facility] follow up from [facility] [id number] 12/05/2015 12/05/2015 [facility] heaviness in chest, comes and goes [id number] 02/02/2016 02/02/2016 [facility] heaviness in chest, comes and goes [id number] 02/02/2016 02/02/2016 [facility] heaviness in chest, comes and goes [id number] 02/02/2016 02/02/2016 [facility] heaviness in chest, comes and goes [id number] 02/02/2016 02/02/2016 [facility] heaviness in chest, comes and goes [id number] 02/02/2016 02/02/2016 [facility] heaviness in chest, comes and goes [id number] 02/02/2016 02/02/2016 [facility] heaviness in chest, comes and goes [id number] 02/02/2016 02/02/2016 [facility] heaviness in chest, comes and goes [id number] 02/02/2016 02/02/2016 [facility] heaviness in chest, comes and goes [id number] 02/02/2016 02/02/2016 [facility] heaviness in chest, comes and goes [id number] 02/02/2016 02/02/2016 [facility] heaviness in chest, comes and goes [id number] 02/02/2016 02/02/2016 [facility] heaviness in chest, comes and goes [id number] 02/02/2016 02/02/2016 [facility]iness in chest, comes and goes [id number] 02/02/2016 02/02/2016 [facility] heaviness in chest, comes and goes [id number] 02/02/2016 02/02/2016 [facility] heaviness in chest, comes and goes [id number] 02/02/2016 02/02/2016 [facility] heaviness in chest, comes and goes [id number] 02/02/2016 02/02/2016 [facility] Follow up [id number] 02/22/2016 02/22/2016 [facility] Follow up [id number] 02/22/2016 02/22/2016 [facility] Follow up [id number] 02/22/2016 02/22/2016 [facility] Follow up [id number] 02/22/2016 02/22/2016 [facility] Follow up [id number] 02/22/2016 02/22/2016 [facility] Follow up [id number] 02/22/2016 02/22/2016 [facility] Follow up [id number] 02/22/2016 02/22/2016 [facility] Follow up [id number] 02/22/2016 02/22/2016 [facility] Follow up [id number] 02/22/2016 02/22/2016 [facility] Follow up [id number] 02/22/2016 02/22/2016 [facility] Follow up [id number] 02/22/2016 02/22/2016 [facility] Follow up [id number] 02/22/2016 02/22/2016 [facility] Follow up [id number] 02/22/2016 02/22/2016 [facility] Follow up [id number] 02/22/2016 02/22/2016 [facility] SORE THROAT/BODY ACHES [id number] 02/27/2016 02/27/2016 [facility] SORE THROAT/BODY ACHES [id number] 02/27/2016 02/27/2016 [facility] SORE THROAT/BODY ACHES [id number] 02/27/2016 02/27/2016 [facility] SORE THROAT/BODY ACHES [id number] 02/27/2016 02/27/2016 [facility] SORE THROAT/BODY ACHES [id number] 02/27/2016 02/27/2016 [facility] SORE THROAT/BODY ACHES [id number] 02/27/2016 02/27/2016 [facility] SORE THROAT/BODY ACHES [id number] 02/27/2016 02/27/2016 [facility] SORE THROAT/BODY ACHES [id number] 02/27/2016 02/27/2016 [facility] SORE THROAT/BODY ACHES [id number] 02/27/2016 02/27/2016 [facility] SORE THROAT/BODY ACHES [id number] 02/27/2016 02/27/2016 [facility] SORE THROAT/BODY ACHES [id number] 02/27/2016 02/27/2016 [facility] SORE THROAT/BODY ACHES [id number] 02/27/2016 02/27/2016 [facility] SORE THROAT/BODY ACHES [id number] 02/27/2016 02/27/2016 [facility] SORE THROAT/BODY ACHES [id number] 02/27/2016 02/27/2016 [facility] SORE THROAT/BODY ACHES [id number] 02/27/2016 02/27/2016 [facility] Follow up on labs [id number] 03/01/2016 03/01/2016 [facility] Follow up on labs [id number] 03/01/2016 03/01/2016 [facility] Follow up on labs [id number] 03/01/2016 03/01/2016 [facility] Follow up on labs [id number] 03/01/2016 03/01/2016 [facility] Follow up on labs [id number] 03/01/2016 03/01/2016 [facility] Follow up on labs [id number] 03/01/2016 03/01/2016 [facility] Follow up on labs [id number] 03/01/2016 03/01/2016 [facility] Follow up on labs [id number] 03/01/2016 03/01/2016 [facility] Follow up on labs [id number] 03/01/2016 03/01/2016 [facility] Follow up on labs [id number] 03/01/2016 03/01/2016 [facility] Follow up on labs [id number] 03/01/2016 03/01/2016 [facility] Follow up on labs [id number] 03/01/2016 03/01/2016 [facility] Follow up on labs [id number] 03/01/2016 03/01/2016 [facility] Cardi[employer]te Stress Test [id number] 03/21/2016 03/21/2016 [facility] [employer] Stress Test [id number] 03/21/2016 03/21/2016 [facility] [employer] Stress Test [id number] 03/21/2016 03/21/2016 [facility] [employer] Stress Test [id number] 03/21/2016 03/21/2016 [facility] [employer] Stress Test [id number] 03/21/2016 03/21/2016 [facility] [employer] Stress Test [id number] 03/21/2016 03/21/2016 [facility] [employer] Stress Test [id number] 03/21/2016 03/21/2016 [facility] [employer] Stress Test [id number] 03/21/2016 03/21/2016 [facility] [employer] Stress Test [id number] 03/21/2016 03/21/2016 [facility] [employer] Stress Test [id number] 03/21/2016 03/21/2016 [facility] [employer] Stress Test [id number] 03/21/2016 03/21/2016 [facility] [employer] Stress Test [id number] 03/21/2016 03/21/2016 [facility] Confirm Diagnosis [id number] 03/29/2016 03/29/2016 [facility] Confirm Diagnosis [id number] 03/29/2016 03/29/2016 [facility] Confirm Diagnosis [id number] 03/29/2016 03/29/2016 [facility] Confirm Diagnosis [id number] 03/29/2016 03/29/2016 [facility] Confirm Diagnosis [id number] 03/29/2016 03/29/2016 [facility] Confirm Diagnosis [id number] 03/29/2016 03/29/2016 [facility] Confirm Diagnosis [id number] 03/29/2016 03/29/2016 [facility] Confirm Diagnosis [id number] 03/29/2016 03/29/2016 [facility] Confirm Diagnosis [id number] 03/29/2016 03/29/2016 [facility] Confirm Diagnosis [id number] 03/29/2016 03/29/2016 [facility] Confirm Diagnosis [id number] 03/29/2016 03/29/2016 [facility] follow up on stress test results [id number] 04/03/2016 04/03/2016 [facility] follow up on stress test results [id number] 04/03/2016 04/03/2016 [facility] follow up on stress test results [id number] 04/03/2016 04/03/2016 [facility] follow up on stress test results [id number] 04/03/2016 04/03/2016 [facility] follow up on stress test results [id number] 04/03/2016 04/03/2016 [facility] follow up on stress test results [id number] 04/03/2016 04/03/2016 [facility] follow up on stress test results [id number] 04/03/2016 04/03/2016 [facility] follow up on stress test results [id number] 04/03/2016 04/03/2016 [facility] follow up on stress test results [id number] 04/03/2016 04/03/2016 [facility] follow up on stress test results [id number] 04/03/2016 04/03/2016 [facility] back pain [id number] 04/13/2016 04/13/2016 [facility] back pain [id number] 04/13/2016 04/13/2016 [facility] back pain [id number] 04/13/2016 04/13/2016 [facility] back pain [id number] 04/13/2016 04/13/2016 [facility] back pain [id number] 04/13/2016 04/13/2016 [facility] back pain [id number] 04/13/2016 04/13/2016 [facility] back pain [id number] 04/13/2016 04/13/2016 [facility] back pain [id number] 04/13/2016 04/13/2016 [facility] back pain [id number] 04/13/2016 04/13/2016 [facility] Unknown [id number] 05/04/2016 05/04/2016 [facility] Unknown [id number] 05/04/2016 05/04/2016 [facility] Unknown [id number] 05/04/2016 05/04/2016 [facility] Unknown [id number] 05/04/2016 05/04/2016 [facility] Unknown [id number] 05/04/2016 05/04/2016 [facility] Unknown [id number] 05/04/2016 05/04/2016 [facility] Unknown [id number] 05/04/2016 05/04/2016 [facility] Unknown [id number] 05/04/2016 05/04/2016 [facility] 3 MONTH FOLLOW UP [id number] 06/05/2016 06/05/2016 [facility] 3 MONTH FOLLOW UP [id number] 06/05/2016 06/05/2016 [facility] 3 MONTH FOLLOW UP [id number] 06/05/2016 06/05/2016 [facility] 3 MONTH FOLLOW UP [id number] 06/05/2016 06/05/2016 [facility] 3 MONTH FOLLOW UP [id number] 06/05/2016 06/05/2016 [facility] 3 MONTH FOLLOW UP [id number] 06/05/2016 06/05/2016 [facility] 3 MONTH FOLLOW UP [id number] 06/05/2016 06/05/2016 [facility] Lab results [id number] 06/22/2016 06/22/2016 [facility] Lab results [id number] 06/22/2016 06/22/2016 [facility] Lab results [id number] 06/22/2016 06/22/2016 [facility] Lab results [id number] 06/22/2016 06/22/2016 [facility] Lab results [id number] 06/22/2016 06/22/2016 [facility] Lab results [id number] 06/22/2016 06/22/2016 [facility] Unknown [id number] 06/27/2016 06/27/2016 [facility] Unknown [id number] 06/27/2016 06/27/2016 [facility] Unknown [id number] 06/27/2016 06/27/2016 [facility] Unknown [id number] 06/27/2016 06/27/2016 [facility] Unknown [id number] 06/27/2016 06/27/2016 [facility] Unknown [id number] 06/27/2016 06/27/2016 [facility] Unknown [id number] 06/27/2016 06/27/2016 [facility] Unknown [id number] 06/27/2016 06/27/2016 [facility] Unknown [id number] 06/27/2016 06/27/2016 [facility] Unknown [id number] 06/27/2016 06/27/2016 [facility] Needs call back from Medical Staff [id number] 08/06/2016 08/06/2016 [facility] Needs call back from Medical Staff [id number] 08/06/2016 08/06/2016 [facility] Needs call back from Medical Staff [id number] 08/06/2016 08/06/2016 [facility] diabetes check up [id number] 09/24/2016 09/24/2016 [facility] diabetes check up [id number] 09/24/2016 09/24/2016 [facility] 3 month follow up [id number] 12/13/2016 12/13/2016 [facility] Procedures No Data Provided for This Section Assessment and Plan No Data Provided for This Section Plan of Care No Data Provided for This Section Social History Social History Date Source Social History ElementQualifiersDate Reported Last Bone Density: . 09/28/15 December 13, 2016 Depression Screening: . negative December 13, 2016 Flu Vaccine: . 2014December 13, 2016 Pneumoccocal Vaccine . No December 13, 2016 Last Colonoscopy: . 2009December 13, 2016 children . 2 December 13, 2016 Tobacco Use: . Are you a: never smoker December 13, 2016 Marital Status: . December 13, 2016 Do you drink alcohol? . 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, 2016 12/13/2016 [facility] Family History Value Date Source QualifierDescriptionCommentDate Reported Maternal Grandmother Comment not available Jun 22, 2016 Paternal Grandmother Comment not available Jun 22, 2016 Siblings Comment not available Jun 22, 2016 Maternal Grandfather tuberculosis Jun 22, 2016 Children Comment not available Jun 22, 2016 Father stroke, heart attack Jun 22, 2016 Paternal Grandfather Comment not available Jun 22, 2016 Mother alive cancer, stroke Jun 22, 2016 Other: Comment not available Jun 22, 2016 06/26/2016 [facility] QualifierDescriptionCommentDate Reported Maternal Grandmother Comment not available March 21, 2016 Paternal Grandmother Comment not available March 21, 2016 Siblings Comment not available March 21, 2016 Maternal Grandfather tuberculosis March 21, 2016 Children Comment not available March 21, 2016 Father stroke, heart attack March 21, 2016 Paternal Grandfather Comment not available March 21, 2016 Mother alive cancer, stroke March 21, 2016 Other: Comment not available March 21, 2016 03/23/2016 [facility] QualifierDescriptionCommentDate Reported Maternal Grandmother Comment not available Dec 05, 2015 Paternal Grandmother Comment not available Dec 05, 2015 Siblings Comment not available Dec 05, 2015 Maternal Grandfather tuberculosis Dec 05, 2015 Children Comment not available Dec 05, 2015 Father stroke, heart attack Dec 05, 2015 Paternal Grandfather Comment not available Dec 05, 2015 Mother alive cancer, stroke Dec 05, 2015 Other: Comment not available Dec 05, 2015 12/07/2015 [facility] QualifierDescriptionCommentDate Reported Maternal Grandmother Comment not available Sep 28, 2015 Paternal Grandmother Comment not available Sep 28, 2015 Siblings Comment not available Sep 28, 2015 Maternal Grandfather tuberculosis Sep 28, 2015 Children Comment not available Sep 28, 2015 Father stroke, heart attack Sep 28, 2015 Paternal Grandfather Comment not available Sep 28, 2015 Mother alive cancer, stroke Sep 28, 2015 Other: Comment not available Sep 28, 2015 09/30/2015 [facility] QualifierDescriptionCommentDate Reported Father stroke, heart attack February 16, 2015 Mother alive cancer, stroke February 16, 2015 Maternal Grandfather tuberculosis February 16, 2015 02/19/2015 [facility] QualifierDescriptionCommentDate Reported Father stroke, heart attack February 07, 2015 Mother alive cancer, stroke February 07, 2015 Maternal Grandfather tuberculosis February 07, 2015 02/09/2015 [facility] QualifierDescriptionCommentDate Reported Father stroke, heart attack Jun 10, 2014 Mother alive cancer, stroke Jun 10, 2014 Maternal Grandfather tuberculosis Jun 10, 2014 07/07/2014 [facility] QualifierDescriptionCommentDate Reported Father stroke, heart attack Jul 23, 2013 Mother cancer, stroke Jul 23, 2013 Maternal Grandfather tuberculosis Jul 23, 2013 07/25/2013 [facility] Advance Directives No Data Provided for This Section Functional Status No Data Provided for This Section
--- OUTSIDE RECORDS SUMMARY | 2019-04-25 11:57 | XMS REPORT ---
Author Author Juan Snyder Organization [employer] Address Unknown Phone Unavailable Care Team Providers Care Per Diem Name Role Phone Juan Snyder CP Unavailable Allergies No Known Allergies Problems Problem Type Condition Code Onset Dates Condition Status Problem Carotid artery narrowing I65.29 Active Problem GERD (gastroesophageal reflux disease) K21.9 Active Problem BMI 27.0-27.9,adult Z68.27 Active Problem Acute left-sided low back pain with left-sided sciatica M54.42 Active Problem Hx-TIA (transient ischemic attack) Z86.73 Active Problem Sciatic leg pain M54.30 Active Problem Hypertriglyceridemia E78.1 Active Problem Essential hypertension I10 Active Problem 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 Active Problem Osteopenia M85.80 Active Assessment Radiculopathy of leg M54.10 Active Problem Erectile dysfunction due to diseases classified elsewhere N52.1 Active Problem Hypogonadism in male E29.1 Active Problem Mixed hyperlipidemia E78.2 Active Problem Type 2 diabetes mellitus with hyperglycemia E11.65 Active Problem Overweight E66.3 Active Problem Insulin long-term use Z79.4 Active Problem Atheromatous plaque I70.90 Active Medications Medication Code System Code Instructions Start Date End Date Status Dosage Tramadol HCl [facility] 13508557586 50 mg Orally every 6 hrs Aug 31, 2017 Active 1 tablet as needed Results No Known Results Summary Purpose [employer] Submission
--- OUTSIDE RECORDS SUMMARY | 2019-04-25 11:57 | XMS REPORT ---
Author Author Tammy Dasilva Organization [employer] Address Unknown Phone Unavailable Care Team Providers Care Agronomy Location Manager Name Role Phone Tammy Dasilva Unavailable Allergies, Adverse Reactions, Alerts Substance Reaction Event Type Tricor Info Not Available Drug Allergy Lipitor Info Not Available Drug Allergy Codeine Phosphate nausea Drug Allergy Problems Problem Type Condition Code Onset Dates Condition Status Problem Essential hypertension I10 Active Problem Mixed hyperlipidemia E78.2 Active Problem TIA (transient ischemic attack) G45.9 Active Problem 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 Active Problem Hypertriglyceridemia E78.1 Active Problem Hx-TIA (transient ischemic attack) Z86.73 Active Problem GERD (gastroesophageal reflux disease) K21.9 Active Problem Hypogonadism in male E29.1 Active Problem Osteopenia M85.80 Active Problem Type 2 diabetes mellitus with hyperglycemia E11.65 Active Assessment Mixed hyperlipidemia E78.2 Active Assessment Type 2 diabetes mellitus with hyperglycemia E11.65 Active Assessment GERD (gastroesophageal reflux disease) K21.9 Active Assessment Essential hypertension I10 Active Problem BMI 27.0-27.9,adult Z68.27 Active Problem Insulin long-term use Z79.4 Active Problem Erectile dysfunction due to diseases classified elsewhere N52.1 Active Problem Atheromatous plaque I70.90 Active Problem Overweight E66.3 Active Problem Carotid artery narrowing I65.29 Active Medications Medication Code System Code Instructions Start Date End Date Status Dosage GlipiZIDE [facility] [address]-61 10 MG Orally Once a day January 16, 2017 Active 1 tablet OneTouch Test ND 0 - In Vitro three times a day DX: E11.65 March 05, 2017 Active as directed Pen [place] 3/16" [facility] [address] 31G X 5 MM (316 in vitro use QID DX: 250.03 May 25, 2013 Active as directed BD U/F Mini Pen Needle [facility] 81915853461 31G X 5 MM Active USE DIRECTED FOUR TIMES DAILY BD Pen Needle Lara U/F [facility] 10588505019 32G X 4 MM Active use as directed inject 1 needle 4 times daily for lantus and humalog insulin BD Pen Needle Lara U/F [facility] 8290-324387 32G X 4 MM subcutaneously use QID for Lantus and Humalog dx: E11.65, Z79.4 Nov 16, 2015 Active as directed OneTouch Lancets [facility] [address]-02 - SQ three times a day DX: E11.65 March 05, 2017 Active as directed Trilipix [facility] 86098248382 135 MG Orally Once a day Active 1 capsule Simvastatin [facility] [address]-25 40 MG Orally Once a day March 05, 2017 Active 2 tablet in the evening Aspirin [facility] [address]-44 81 MG Orally Once a day Active 1 tablet Centrum Silver Adult 50+ [facility] [address]-72 Orally Active not defined Clopidogrel Bisulfate [facility] 77454358065 75 mg Active 1 TABLET ONCE A DAY ORALLY 30 DAYS Lantus SoloStar [facility] [address]-00 100 UNIT/ML Active Inject subcutaneously 64 units once a day Lisinopril [facility] 54468552855 5 MG by mouth once a day Active 1 tablet Simvastatin [facility] 75782430887 80 MG PO once a day Inactive Take 1 tablet by mouth in the evening Lantus SoloStar [facility] [address]-90 100 UNIT/ML Subcutaneous once a day Active 64 units One Touch/One Touch II Starter [facility] 0 - In Vitro once a day March 05, 2017 Active as directed Humalog KwikPen [facility] [address]-55 100 UNIT/ML Active inject 30 units subcutaneously before meals as directed Vital Signs Date/Time: March 05, 2017 BMI 27.61 Index Weight 187 lbs Height 69 in Cardiac Monitoring Heart Rate 80 /min Blood Pressure Diastolic 70 mm Hg Blood Pressure Systolic 108 mm Hg Results Name Result Date Reference Range Unit Abnormality Flag MONOFILAMENT FOOT EXAMINATION PERFORMED Summary Purpose [employer] Submission
--- OUTSIDE RECORDS SUMMARY | 2019-04-25 11:58 | XMS REPORT ---
Author Author Juan Snyder Organization [employer] Address Unknown Phone Unavailable Care Team Providers Care Marine Erector Name Role Phone Juan Snyder CP Unavailable Allergies, Adverse Reactions, Alerts Substance Reaction Event Type Tricor Info Not Available Drug Allergy Lipitor Info Not Available Drug Allergy Codeine Phosphate nausea Drug Allergy Problems Problem Type Condition Code Onset Dates Condition Status Problem Atheromatous plaque I70.90 Active Problem BMI 27.0-27.9,adult Z68.27 Active Problem Carotid artery narrowing I65.29 Active Problem Hx-TIA (transient ischemic attack) Z86.73 Active Assessment Insulin long-term use Z79.4 Active Problem 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 Active Assessment Atheromatous plaque I70.90 Active Assessment Essential hypertension I10 Active Problem Acute left-sided low back pain with left-sided sciatica M54.42 Active Problem Essential hypertension I10 Active Problem GERD (gastroesophageal reflux disease) K21.9 Active Problem Osteopenia M85.80 Active Problem Hypertriglyceridemia E78.1 Active Assessment Mixed hyperlipidemia E78.2 Active Assessment Type 2 diabetes mellitus with hyperglycemia E11.65 Active Assessment Hypertriglyceridemia E78.1 Active Assessment Hx-TIA (transient ischemic attack) Z86.73 Active Problem Type 2 diabetes mellitus with hyperglycemia E11.65 Active Problem Hypogonadism in male E29.1 Active Problem Erectile dysfunction due to diseases classified elsewhere N52.1 Active Problem Mixed hyperlipidemia E78.2 Active Assessment Acute left-sided low back pain with left-sided sciatica M54.42 Active Problem Insulin long-term use Z79.4 Active Problem Overweight E66.3 Active Medications Medication Code System Code Instructions Start Date End Date Status Dosage Centrum Silver Adult 50+ NDC 99068828344 Orally Active not defined Aspirin NDC 99172311276 81 MG Orally Once a day Active 1 tablet Simvastatin NDC 32741702500 40 MG Orally Once a day March 05, 2017 Active 2 tablet in the evening OneTouch Test NDC 0 - In Vitro three times a day DX: E11.65 March 05, 2017 Active as directed OneTouch Lancets NDC 27723075446 - SQ three times a day DX: E11.65 March 05, 2017 Active as directed Advil [facility] 44115027711 200 MG Orally every 6 hrs Active 1 tablet with food or milk as needed Lantus SoloStar [facility] 31911701208 100 UNIT/ML Subcutaneous once a day Active 64 units GlipiZIDE [facility] 94967425457 10 MG Orally Once a day January 16, 2017 Active 1 tablet Clopidogrel Bisulfate [facility] 54171502728 75 mg Active 1 TABLET ONCE A DAY ORALLY 30 DAYS Pen [place] 3/16" [facility] 35372346743 31G X 5 MM (316 in vitro use QID DX: 250.03 May 25, 2013 Active as directed BD Pen Needle Lara U/F [facility] 80112283381 32G X 4 MM Active use as directed inject 1 needle 4 times daily for lantus and humalog insulin BD U/F Mini Pen Needle [facility] 36962844900 31G X 5 MM Active USE DIRECTED FOUR TIMES DAILY BD Pen Needle Lara U/F [facility] 23258001372 32G X 4 MM subcutaneously use QID for Lantus and Humalog dx: E11.65, Z79.4 Nov 16, 2015 Active as directed Humalog KwikPen [facility] [address]-58 100 UNIT/ML Active inject 30 units subcutaneously before meals as directed Lantus SoloStar [facility] 40745152280 100 UNIT/ML Active Inject subcutaneously 64 units once a day One Touch/One Touch II Starter [place] 0 - In Vitro once a day March 05, 2017 Active as directed Lisinopril [facility] 34773150142 5 MG by mouth once a day Active 1 tablet Trilipix [facility] 46728453169 135 MG Orally Once a day Active 1 capsule Vital Signs Date/Time: Jul 12, 2017 BMI 27.32 Index Weight 185 lbs Height 69 in Cardiac Monitoring Heart Rate 71 /min Blood Pressure Diastolic 72 mm Hg Blood Pressure Systolic 118 mm Hg Results No Known Results Summary Purpose [employer] Submission
--- OUTSIDE RECORDS SUMMARY | 2019-04-25 11:58 | XMS REPORT ---
Author Author Juan Snyder Organization [employer] Address Unknown Phone Unavailable Care Team Providers Care Ip Counsel Name Role Phone Juan Snyder CP Unavailable [...] 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 Active Assessment Hypertriglyceridemia E78.1 Active Problem Hypertriglyceridemia E78.1 Active Assessment Encounter to discuss test results Z71.89 Active Assessment GERD (gastroesophageal reflux disease) K21.9 Active Problem Hx-TIA (transient ischemic attack) Z86.73 Active Problem GERD (gastroesophageal reflux disease) K21.9 Active Problem Hypogonadism in male E29.1 Active Problem Osteopenia M85.80 Active Problem Type 2 diabetes mellitus with hyperglycemia E11.65 Active Assessment Mixed hyperlipidemia E78.2 Active Assessment Type 2 diabetes mellitus with hyperglycemia E11.65 Active Assessment Insulin long-term use Z79.4 Active Assessment Essential hypertension I10 Active Problem BMI 27.0-27.9,adult Z68.27 Active Problem Insulin long-term use Z79.4 Active Problem Erectile dysfunction due to diseases classified elsewhere N52.1 Active Problem Atheromatous plaque I70.90 Active Assessment Lower back pain M54.5 Active Problem Overweight E66.3 Active Problem Carotid artery narrowing I65.29 Active Medications Medication Code System Code Instructions Start Date End Date Status Dosage Pen [place] 12/27" [facility] [address] 31G X 5 MM (12/27 in vitro use QID DX: 250.03 May 25, 2013 Active as directed BD U/F Mini Pen Needle [facility] 52246480250 31G X 5 MM Active USE DIRECTED FOUR TIMES DAILY Lantus SoloStar [facility] [address]-72 100 UNIT/ML Active Inject subcutaneously 64 units once a day Lantus SoloStar [facility] [address]-78 100 UNIT/ML Subcutaneous once a day Active 64 units Simvastatin [facility] [address]-61 40 MG Orally Once a day March 05, 2017 Active 2 tablet in the evening Clopidogrel Bisulfate [facility] 42066493565 75 mg Active 1 TABLET ONCE A DAY ORALLY 30 DAYS Lisinopril [facility] 03983141971 5 MG by mouth once a day Active 1 tablet Trilipix [facility] 85129267396 135 MG Orally Once a day Active 1 capsule One Touch/One Touch II Starter ND 0 - In Vitro once a day March 05, 2017 Active as directed OneTouch Lancets [facility] [address]-47 - SQ three times a day DX: E11March 05, 2017 Active as directed Aspirin [facility] [address]-04 81 MG Orally Once a day Active 1 tablet Centrum Silver Adult 50+ [facility] [address]-48 Orally Active not defined OneTouch Test ND 0 - In Vitro three times a day DX: E11.March 05, 2017 Active as directed GlipiZIDE [facility] [address]-68 10 MG Orally Once a day January 16, 2017 Active 1 tablet BD Pen Needle Lara U/F [facility] 52528669894 32G X 4 MM Active use as directed inject 1 needle 4 times daily for lantus and humalog insulin BD Pen Needle Lara U/F [facility] 8290-592002 32G X 4 MM subcutaneously use QID for Lantus and Humalog dx: E11.65, Z79.4 Nov 16, 2015 Active as directed Humalog KwikPen [facility] [address]-02 100 UNIT/ML Active inject 30 units subcutaneously before meals as directed Vital Signs Date/Time: April 12, 2017 BMI 28.20 Index Weight 191 lbs Height 69 in Cardiac Monitoring Heart Rate 66 /min Blood Pressure Diastolic 72 mm Hg Blood Pressure Systolic 118 mm Hg Results No Known Results Summary Purpose [employer]Works Submission
--- OUTSIDE RECORDS SUMMARY | 2019-04-25 11:58 | XMS REPORT ---
Author Author Juan Snyder Organization [employer] Address Unknown Phone Unavailable Care Team Providers Care Unix Consultant Name Role Phone Juan Snyder CP Unavailable [...] diabetes mellitus with hyperglycemia E11.65 Active Assessment Type 2 diabetes mellitus with hyperglycemia E11.65 Active Problem BMI 27.0-27.9,adult Z68.27 Active Problem Insulin long-term use Z79.4 Active Problem Erectile dysfunction due to diseases classified elsewhere N52.1 Active Problem Atheromatous plaque I70.90 Active Problem Overweight E66.3 Active Problem Carotid artery narrowing I65.29 Active Medications Medication Code System Code Instructions Start Date End Date Status Dosage GlipiZIDE [facility] [address]-04 10 MG Orally Once a day January 16, 2017 Active 1 tablet Results No Known Results Summary Purpose [employer]Works Submission
--- OUTSIDE RECORDS SUMMARY | 2019-04-25 11:58 | XMS REPORT ---
Author Author Juan Snyder Organization [employer] Address Unknown Phone Unavailable Care Team Providers Care Sales Engineering Manager Name Role Phone Juan Snyder CP Unavailable Allergies, Adverse Reactions, Alerts Substance Reaction Event Type Tricor Info Not Available Drug Allergy Lipitor Info Not Available Drug Allergy Codeine Phosphate nausea Drug Allergy Problems Problem Type Condition Code Onset Dates Condition Status Assessment Sciatic leg pain M54.30 Active Problem Overweight E66.3 Active Assessment Injury of low back, initial encounter S39.92XA Active Problem Atheromatous plaque I70.90 Active Assessment Encounter to discuss test results Z71.89 Active Problem Carotid artery narrowing I65.29 Active Problem GERD (gastroesophageal reflux disease) K21.9 Active Problem BMI 27.0-27.9,adult Z68.27 Active Problem Acute left-sided low back pain with left-sided sciatica M54.42 Active Problem Hx-TIA (transient ischemic attack) Z86.73 Active Assessment Hypertriglyceridemia E78.1 Active Assessment Status post fall Z91.81 Active Problem Sciatic leg pain M54.30 Active Assessment Radiculopathy of leg M54.10 Active Problem Hypertriglyceridemia E78.1 Active Problem Essential hypertension I10 Active Problem 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 Active Problem Osteopenia M85.80 Active Assessment Type 2 diabetes mellitus with hyperglycemia E11.65 Active Problem Erectile dysfunction due to diseases classified elsewhere N52.1 Active Assessment Mixed hyperlipidemia E78.2 Active Assessment Essential hypertension I10 Active Problem Hypogonadism in male E29.1 Active Problem Mixed hyperlipidemia E78.2 Active Problem Type 2 diabetes mellitus with hyperglycemia E11.65 Active Problem Insulin long-term use Z79.4 Active Medications Medication Code System Code Instructions Start Date End Date Status Dosage Centrum Silver Adult 50+ [facility] 31111022343 Orally Active not defined OneTouch Lancets [facility] 39919495307 - SQ three times a day DX: E11.65 March 05, 2017 Active as directed BD U/F Mini Pen Needle [facility] 10823492063 31G X 5 MM Active USE DIRECTED FOUR TIMES DAILY Lantus SoloStar [facility] 53619472410 100 UNIT/ML Subcutaneous once a day Active 64 units Lisinopril [facility] 98855416369 5 MG Active TAKE 1 TABLET BY MOUTH ONCE A DAY Humalog KwikPen [facility] [address]-49 100 UNIT/ML Active inject 30 units subcutaneously before meals as directed Naproxen [facility] 58810392164 500 mg Orally every 12 hrs Jul 29, 2017 Oct 27, 2017 Active 1 tablet as needed GlipiZIDE ND 60015680663 10 MG Orally Once a day January 16, 2017 Active 1 tablet OneTouch Test ND 0 - In Vitro three times a day DX: E11.65 March 05, 2017 Active as directed One Touch/One Touch II Starter ND 0 - In Vitro once a day March 05, 2017 Active as directed Valium [facility] 61962347272 10 mg Orally Once (30 min prior to procedure) Jul 29, 2017 Active 1 tablet as needed Advil ND 09348153362 200 MG Orally every 6 hrs Active 1 tablet with food or milk as needed Tizanidine HCl [facility] 96207485311 4 mg Orally at bedtime Aug 28, 2017 Active 1 tablet as needed Tramadol HCl [facility] 81677114559 50 MG Orally every 6 hrs Active 1 tablet as needed Simvastatin ND 34315769370 40 MG Active TAKE 2 TABLETS BY MOUTH EVERY EVENING Trilipix [facility] 89269532326 135 MG Orally Once a day Jul 15, 2017 Active 1 capsule BD Pen Needle Lara U/F [facility] 89547763014 32G X 4 MM subcutaneously use QID for Lantus and Humalog dx: E11.65, Z79.4 Nov 16, 2015 Active as directed Lantus SoloStar [facility] 52659323412 100 UNIT/ML Active Inject subcutaneously 64 units once a day Clopidogrel Bisulfate [facility] 47970516031 75 mg Active 1 TABLET ONCE A DAY ORALLY 30 DAYS Medrol (Kareem) NDC 0 4 mg Orally as directed Jul 29, 2017 Jul 30, 2017 Active as directed BD Pen Needle Lara U/F [facility] 10116683683 32G X 4 MM Active use as directed inject 1 needle 4 times daily for lantus and humalog insulin Aspirin ND 79853957662 81 MG Orally Once a day Active 1 tablet Pen [place] 12/27" [facility] 62962264720 31G X 5 MM (12/27 in vitro use QID DX: 250.03 May 25, 2013 Active as directed Trilipix [facility] 33316362184 135 MG Orally Once a day Active 1 capsule Vital Signs Date/Time: Jul 29, 2017 Blood Pressure Systolic 142 mm Hg Weight w/c lbs Height 69 in Cardiac Monitoring Heart Rate 74 /min Blood Pressure Diastolic 84 mm Hg Results Name Result Date Reference Range Unit Abnormality Flag Lumbar AP/LAT Xray TORADOL IM 15MG X4 Summary Purpose eClinicalWorks Submission
--- OUTSIDE RECORDS SUMMARY | 2019-04-25 11:58 | XMS REPORT ---
Author Author Juan Snyder Organization [employer] Address Unknown Phone Unavailable Care Team Providers Care Historian Dramatic Arts Name Role Phone Juan Snyder CP Unavailable Allergies No Known Allergies Problems Problem Type Condition Code Onset Dates Condition Status Problem 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 Active Problem Acute left-sided low back pain with left-sided sciatica M54.42 Active Problem Hx-TIA (transient ischemic attack) Z86.73 Active Problem Osteoarthritis of spine with radiculopathy, cervical region M47.22 Active Problem Overweight E66.3 Active Problem Osteoarthritis of spine with radiculopathy, lumbar region M47.26 Active Problem Insulin long-term use Z79.4 Active Problem Erectile dysfunction due to diseases classified elsewhere N52.1 Active Problem Lung nodule R91.1 Active Problem Foraminal stenosis of lumbar region M99.83 Active Problem Sciatic leg pain M54.30 Active Problem Anxiety F41.9 Active Problem Bulging lumbar disc M51.26 Active Problem Hypogonadism in male E29.1 Active Problem Mixed hyperlipidemia E78.2 Active Problem Atheromatous plaque I70.90 Active Problem Carotid artery narrowing I65.29 Active Problem BMI 27.0-27.9,adult Z68.27 Active Problem Essential hypertension I10 Active Problem Type 2 diabetes mellitus with hyperglycemia E11.65 Active Problem Hypertriglyceridemia E78.1 Active Problem GERD (gastroesophageal reflux disease) K21.9 Active Problem Osteopenia M85.80 Active Medications No Known Medications Results No Known Results Summary Purpose eClinicalWorks Submission
--- OUTSIDE RECORDS SUMMARY | 2019-04-25 11:59 | XMS REPORT ---
Author Author Juan Snyder Organization [employer] Address Unknown Phone Unavailable Care Team Providers Care Vacuum Conditioner Operator Name Role Phone Juan Snyder CP Unavailable Allergies, Adverse Reactions, Alerts Substance Reaction Event Type Tricor Info Not Available Drug Allergy Lipitor Info Not Available Drug Allergy Codeine Phosphate nausea Drug Allergy Problems Problem Type Condition Code Onset Dates Condition Status Assessment Acute left-sided low back pain with left-sided sciatica M54.42 Active Assessment Sciatic leg pain M54.30 Active Assessment Carotid artery narrowing I65.29 Active Assessment Anxiety F41.9 Active Assessment Hypertriglyceridemia E78.1 Active Assessment Atheromatous plaque I70.90 Active Assessment Essential hypertension I10 Active Problem GERD (gastroesophageal reflux disease) K21.9 Active Assessment Mixed hyperlipidemia E78.2 Active Problem Osteopenia M85.80 Active Assessment Type 2 diabetes mellitus with hyperglycemia E11.65 Active Problem Hypertriglyceridemia E78.1 Active Problem Hx-TIA (transient ischemic attack) Z86.73 Active Problem 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 Active Problem Osteoarthritis of spine with radiculopathy, lumbar region M47.26 Active Problem Anxiety F41.9 Active Problem Insulin long-term use Z79.4 Active Problem Erectile dysfunction due to diseases classified elsewhere N52.1 Active Problem Osteoarthritis of spine with radiculopathy, cervical region M47.22 Active Problem Sciatic leg pain M54.30 Active Problem Acute left-sided low back pain with left-sided sciatica M54.42 Active Problem Bulging lumbar disc M51.26 Active Problem Foraminal stenosis of lumbar region M99.83 Active Problem Mixed hyperlipidemia E78.2 Active Problem Essential hypertension I10 Active Problem Type 2 diabetes mellitus with hyperglycemia E11.65 Active Problem Hypogonadism in male E29.1 Active Problem Carotid artery narrowing I65.29 Active Problem BMI 27.0-27.9,adult Z68.27 Active Problem Overweight E66.3 Active Problem Atheromatous plaque I70.90 Active Medications Medication Code System Code Instructions Start Date End Date Status Dosage Trilipix [facility] 89349617654 135 MG Orally Once a day Active 1 capsule GlipiZIDE [facility] 12196867771 10 mg Orally twice a day February 10, 2018 Active 1 tablet Centrum Silver Adult 50+ [facility] 89791775002 Orally Active not defined Invokana [facility] 05594781775 100 mg Orally Once a day 2018 February 09, 2019 Active 1 tablet BD Pen Needle Lara U/F [facility] 54427630139 32G X 4 MM subcutaneously use QID for Lantus and Humalog dx: E11.65, Z79.4 Nov 16, 2015 Active as directed BD U/F Mini Pen Needle [facility] 99613622161 31G X 5 MM four times a day (qid) Active use as directed four times daily OneTouch Delica Lancets Fine [facility] 84897557908 - Active USE DIRECTED 3 TIMES DAILY Simvastatin [facility] 29006387227 40 mg Active TAKE 2 TABLETS BY MOUTH EVERY EVENING Advil [facility] 01138933959 200 MG Orally every 6 hrs Active 1 tablet with food or milk as needed Lisinopril [facility] 45480872919 5 MG orally once a day Active 1 tablet OneTouch Lancets [facility] 05801976525 - SQ three times a day DX: E11.65 March 05, 2017 Active as directed Aspirin [facility] 31308802339 81 MG Orally Once a day Active 1 tablet Klonopin [facility] 78076024568 0.5 MG Orally twice a day (bid) PRN March 31, 2018 Active 1 tablet at bedtime BD Pen Needle Lara U/F [facility] 53859298345 32G X 4 MM Active USE DIRECTED 4 TIMES DAILY FOR LANTUS AND HUMALOG INSULIN One Touch/One Touch II Starter NDC 0 - In Vitro once a day March 05, 2017 Active as directed Clopidogrel Bisulfate [facility] 97169047707 75 mg Orally Once a day Jun 01, 2018 Active 1 tablet Humalog KwikPen [facility] [address]-36 100 UNIT/ML three times a day (tid) Active INJECT 30 UNITS SUBCUTANEOUSLY BEFORE MEALS DIRECTED OneTouch Test NDC 0 - In Vitro three times a day DX: E11.65 March 05, 2017 Active as directed Pen [place] 3/16" [facility] 63808371202 31G X 5 MM (316 in vitro use QID DX: 250.03 May 25, 2013 Active as directed Lantus BriceoStar [facility] 51500438761 100 UNIT/ML Subcutaneous once a day Active 64 units Lyrica [facility] 77260052160 50 mg Orally twice a day 2017 Active 1 capsule OneTouch Ultra Test [facility] 25151591071 - Active USE DIRECTED 3 TIMES DAILY Vital Signs Date/Time: Dec 02, 2018 BMI 28.06 Index Weight 190 lbs Height 69 in Cardiac Monitoring Heart Rate 66 /min Blood Pressure Diastolic 74 mm Hg Blood Pressure Systolic 116 mm Hg Results Name Result Date Reference Range Unit Abnormality Flag MONOFILAMENT FOOT EXAMINATION PERFORMED Summary Purpose eClinicalWorks Submission
--- OUTSIDE RECORDS SUMMARY | 2019-04-25 11:59 | XMS REPORT ---
Author Author Juan Snyder Organization [employer] Address Unknown Phone Unavailable Care Team Providers Care Professor Of Literacy Name Role Phone Juan Snyder CP Unavailable Allergies, Adverse Reactions, Alerts Substance Reaction Event Type Tricor Info Not Available Drug Allergy Lipitor Info Not Available Drug Allergy Codeine Phosphate nausea Drug Allergy Problems Problem Type Condition Code Onset Dates Condition Status Problem GERD (gastroesophageal reflux disease) K21.9 Active Problem Hypertriglyceridemia E78.1 Active Problem Essential hypertension I10 Active Problem Foraminal stenosis of lumbar region M99.83 Active Assessment Bulging lumbar disc M51.26 Active Problem Sciatic leg pain M54.30 Active Assessment Sciatic leg pain M54.30 Active Assessment Acute left-sided low back pain with left-sided sciatica M54.42 Active Problem Bulging lumbar disc M51.26 Active Problem 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 Active Problem Osteopenia M85.80 Active Problem Acute left-sided low back pain with left-sided sciatica M54.42 Active Problem Hx-TIA (transient ischemic attack) Z86.73 Active Problem Insulin long-term use Z79.4 Active Problem Type 2 diabetes mellitus with hyperglycemia E11.65 Active Assessment Foraminal stenosis of lumbar region M99.83 Active Problem Erectile dysfunction due to diseases classified elsewhere N52.1 Active Problem Overweight E66.3 Active Problem Atheromatous plaque I70.90 Active Problem Hypogonadism in male E29.1 Active Problem Carotid artery narrowing I65.29 Active Assessment Encounter to discuss test results Z71.89 Active Problem Mixed hyperlipidemia E78.2 Active Problem BMI 27.0-27.9,adult Z68.27 Active Medications Medication Code System Code Instructions Start Date End Date Status Dosage Aspirin ND 68089606242 81 MG Orally Once a day Active 1 tablet Centrum Silver Adult 50+ NDC 88454153994 Orally Active not defined Advil ND 82362481975 200 MG Orally every 6 hrs Active 1 tablet with food or milk as needed Naproxen ND 98632267804 500 mg Orally every 12 hrs Jul 29, 2017 Oct 27, 2017 Active 1 tablet as needed Valium [facility] 65187537716 10 mg Orally Once (30 min prior to procedure) Jul 29, 2017 Active 1 tablet as needed OneTouch Lancets [facility] 20332841104 - SQ three times a day DX: E11.65 March 05, 2017 Active as directed Simvastatin ND 07807548830 40 MG Active TAKE 2 TABLETS BY MOUTH EVERY EVENING One Touch/One Touch II Starter NDC 0 - In Vitro once a day March 05, 2017 Active as directed OneTouch Test NDC 0 - In Vitro three times a day DX: E11.65 March 05, 2017 Active as directed Tizanidine HCl [facility] 41969941269 4 mg Orally at bedtime Aug 28, 2017 Active 1 tablet as needed Clopidogrel Bisulfate [facility] 06898965819 75 mg Active 1 TABLET ONCE A DAY ORALLY 30 DAYS BD U/F Mini Pen Needle [facility] 91980445036 31G X 5 MM Active USE DIRECTED FOUR TIMES DAILY Trilipix [facility] 17746380338 135 MG Orally Once a day Active 1 capsule Tramadol HCl [facility] 43289137526 50 mg Orally every 6 hrs Aug 31, 2017 Active 1 tablet as needed Pen [place] 3/16" [facility] 20219600658 31G X 5 MM (3/16 in vitro use QID DX: 250.03 May 25, 2013 Active as directed BD Pen Needle Lara U/F [facility] 39653166340 32G X 4 MM subcutaneously use QID for Lantus and Humalog dx: E11.65, Z79.4 Nov 16, 2015 Active as directed Trilipix [facility] 03317187126 135 MG Orally Once a day Jul 15, 2017 Active 1 capsule Lisinopril [facility] 46043108678 5 MG Active TAKE 1 TABLET BY MOUTH ONCE A DAY Humalog KwikPen [facility] [address]-74 100 UNIT/ML Active inject 30 units subcutaneously before meals as directed GlipiZIDE [facility] 86001065913 10 MG Orally Once a day January 16, 2017 Active 1 tablet Lyrica [facility] 06720264791 50 mg Orally twice a day 2017 Active 1 capsule Lantus SoloStar [facility] 37070142053 100 UNIT/ML Active Inject subcutaneously 64 units once a day Lantus SoloStar [facility] 46778254336 100 UNIT/ML Subcutaneous once a day Active 64 units BD Pen Needle Lara U/F [facility] 95473782246 32G X 4 MM Active use as directed inject 1 needle 4 times daily for lantus and humalog insulin Vital Signs Date/Time: 2017 BMI 26.87 Index Weight 182 lbs Height 69 in Cardiac Monitoring Heart Rate 82 /min Blood Pressure Diastolic 74 mm Hg Blood Pressure Systolic 126 mm Hg Results No Known Results Summary Purpose eClinicalWorks Submission
--- OUTSIDE RECORDS SUMMARY | 2019-04-25 11:59 | XMS REPORT ---
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 Active Problem Osteopenia M85.80 Active Problem Acute left-sided low back pain with left-sided sciatica M54.42 Active Problem Hx-TIA (transient ischemic attack) Z86.73 Active Problem Insulin long-term use Z79.4 Active Problem Type 2 diabetes mellitus with hyperglycemia E11.65 Active Assessment Viral upper respiratory tract infection J06.9 Active Problem Erectile dysfunction due to diseases classified elsewhere N52.1 Active Problem Overweight E66.3 Active Problem Atheromatous plaque I70.90 Active Problem Hypogonadism in male E29.1 Active Problem Carotid artery narrowing I65.29 Active Problem Mixed hyperlipidemia E78.2 Active Problem BMI 27.0-27.9,adult Z68.27 Active Medications Medication Code System Code Instructions Start Date End Date Status Dosage Aspirin ND 51583971279 81 MG Orally Once a day Active 1 tablet Centrum Silver Adult 50+ ND 72240023362 Orally Active not defined Lantus SoloStar ND 00570122210 100 UNIT/ML Subcutaneous once a day Active [address] [facility] 82363060805 - SQ three times a day DX: E11.65 March 05, 2017 Active as directed One Touch/One Touch II Starter ND 0 - In Vitro once a day March 05, 2017 Active as directed Pen [place] 316" NDC 51856825857 31G X 5 MM (12/27 in vitro use QID DX: 250.03 May 25, 2013 Active as directed Lantus SoloStar [facility] 62103454291 100 UNIT/ML Active INJECT SUBCUTANEOUSLY 64 UNITS ONCE A DAY GlipiZIDE [facility] 27208972174 10 MG Orally Once a day January 16, 2017 Active [address] [facility] 12558326247 30-2-10 MG/5ML Orally every 6 hrs Dec 02, 2017 December 12, 2017 Active 10 ml as needed Valium [facility] 37041880594 10 mg Orally Once (30 min prior to procedure) Jul 29, 2017 Active 1 tablet as needed Humalog KwikPen [facility] 55129461588 100 UNIT/ML Active INJECT 26 UNITS SUBCUTANEOUSLY BEFORE MEALS DIRECTED BD U/F Mini Pen Needle [facility] 39708231164 31G X 5 MM Active USE DIRECTED FOUR TIMES DAILY Lisinopril [facility] 26385736853 5 MG Active TAKE 1 TABLET BY MOUTH ONCE A DAY Clopidogrel Bisulfate [facility] 89768258306 75 Active TAKE ONE TABLET BY MOUTH ONCE A DAY Trilipix [facility] 34641546102 135 MG Orally Once a day Active [address] [facility] 02322287764 40 MG Active TAKE 2 TABLETS BY MOUTH EVERY EVENING Advil [facility] 63449846865 200 MG Orally every 6 hrs Active 1 tablet with food or milk as needed OneTouch Test ND 0 - In Vitro three times a day DX: E11.65 March 05, 2017 Active as directed Lyrica [facility] 85741765511 50 mg Orally twice a day 2017 Active [address] [facility] [address]-51 135 MG Orally Once a day Sep 20, 2017 Active 1 capsule BD Pen Needle Lara U/F [facility] 44270147028 32G X 4 MM subcutaneously use QID for Lantus and Humalog dx: E11.65, Z79.4 Nov 16, 2015 Active as directed Ceftin [facility] 53584124743 250 MG Orally every 12 hrs Dec 02, 2017 December 12, 2017 Active 1 tablet BD Pen Needle Lara U/F ND 40550384211 32G X 4 MM Active use as directed inject 1 needle 4 times daily for lantus and humalog insulin Clopidogrel Bisulfate [facility] 50649488470 75 mg Active 1 TABLET ONCE A DAY ORALLY 30 DAYS Vital Signs Date/Time: Dec 02, 2017 BMI 27.17 Index Weight 184 lbs Height 69 in Cardiac Monitoring Heart Rate 90 /min Blood Pressure Diastolic 84 mm Hg Blood Pressure Systolic 142 mm Hg Results Name Result Date Reference Range Unit Abnormality Flag RAPID FLU ----Result negative 20171204 ROCEPHIN 250MG X2 CBC ----MCHC 33.7 20171204 ----MCH 30.0 20171204 ----Platelets 198 20171204 ----RDW 12.4 20171204 ----NEUTROPHILS mid-0.6,gra-4.2 20171204 ----Hematocrit 41.3 20171204 ----MCV 89.0 20171204 ----RBC 4.64 20171204 ----Hemoglobin 13.9 20171204 ----WBC 5.8 20171204 Summary Purpose eClinicalWorks Submission
--- OUTSIDE RECORDS SUMMARY | 2019-04-25 12:00 | XMS REPORT ---
Author Author Juan Snyder Organization [employer] Address Unknown Phone Unavailable Care Team Providers Care Shipping Order Clerk Name Role Phone Juan Snyder CP Unavailable Allergies, Adverse Reactions, Alerts Substance Reaction Event Type Tricor Info Not Available Drug Allergy Lipitor Info Not Available Drug Allergy Codeine Phosphate nausea Drug Allergy Problems Problem Type Condition Code Onset Dates Condition Status Assessment Numbness of arm R20.0 Active Assessment Sciatic leg pain M54.30 Active Assessment Anxiety F41.9 Active Assessment Chest pain, unspecified type R07.9 Active Assessment Acute left-sided low back pain with left-sided sciatica M54.42 Active Assessment Osteopenia M85.80 Active Problem Carotid artery narrowing I65.29 Active Assessment Hypertriglyceridemia E78.1 Active Problem BMI 27.0-27.9,adult Z68.27 Active Assessment Insulin long-term use Z79.4 Active Problem GERD (gastroesophageal reflux disease) K21.9 Active Problem Hypertriglyceridemia E78.1 Active Problem Osteopenia M85.80 Active Problem Bulging lumbar disc M51.26 Active Problem Foraminal stenosis of lumbar region M99.83 Active Assessment Type 2 diabetes mellitus with hyperglycemia E11.65 Active Assessment Mixed hyperlipidemia E78.2 Active Problem Anxiety F41.9 Active Assessment Essential hypertension I10 Active Problem Hx-TIA (transient ischemic attack) Z86.73 Active Problem 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 Active Problem Sciatic leg pain M54.30 Active Problem Acute left-sided low back pain with left-sided sciatica M54.42 Active Problem Type 2 diabetes mellitus with hyperglycemia E11.65 Active Problem Essential hypertension I10 Active Problem Erectile dysfunction due to diseases classified elsewhere N52.1 Active Problem Insulin long-term use Z79.4 Active Problem Overweight E66.3 Active Problem Atheromatous plaque I70.90 Active Problem Hypogonadism in male E29.1 Active Problem Mixed hyperlipidemia E78.2 Active Medications Medication Code System Code Instructions Start Date End Date Status Dosage BD Pen Needle Lara U/F [facility] 25245139746 32G X 4 MM Active USE DIRECTED 4 TIMES DAILY FOR LANTUS AND HUMALOG INSULIN OneTouch Lancets [facility] 16533392091 - SQ three times a day DX: E11.65 March 05, 2017 Active as directed Aspirin ND 76437315571 81 MG Orally Once a day Active 1 tablet OneTouch Ultra Test [facility] [place] 38018864275 - Active USE DIRECTED 3 TIMES DAILY Lantus SoloStar ND 00577838449 100 UNIT/ML Subcutaneous once a day Active 64 units Simvastatin ND 34867863453 40 MG Active TAKE 2 TABLETS BY MOUTH EVERY EVENING BD Pen Needle Lara U/F [facility] [place] 19210346911 32G X 4 MM subcutaneously use QID for Lantus and Humalog dx: E11.65, Z79.4 Nov 16, 2015 Active as directed Clopidogrel Bisulfate [facility] 60711005583 75 mg Orally qd LAST REFILL, MUST SEE DOCTOR February 10, 2018 Active 1 tablet Valium [facility] 90345990933 10 mg Orally Once (30 min prior to procedure) Jul 29, 2017 Active 1 tablet as needed Humalog KwikPen [facility] [place] [address]-69 100 UNIT/ML three times a day (tid) Active INJECT 26-30 UNITS SUBCUTANEOUSLY BEFORE MEALS DIRECTED Advil [facility] [place] 75058167853 200 MG Orally every 6 hrs Active 1 tablet with food or milk as needed OneTouch Delica Lancets Fine [facility] [place] 84326412887 - Active USE DIRECTED 3 TIMES DAILY Lisinopril [facility] 14953600423 5 MG Active TAKE 1 TABLET BY MOUTH ONCE A DAY Trilipix [facility] 69813347261 135 MG Orally Once a day Active 1 capsule Trilipix [facility] 21326267500 135 MG Orally Once a day Dec 08, 2017 Active 1 capsule Klonopin [facility] 44145553021 0.5 MG Orally twice a day (bid) PRN March 31, 2018 Active 1 tablet at bedtime Centrum Silver Adult 50+ ND 43287084125 Orally Active not defined Pen [place] 12/27" [facility] 73600663726 31G X 5 MM (12/27 in vitro use QID DX: 250.03 May 25, 2013 Active as directed Lyrica ND 30691017327 50 mg Orally twice a day 2017 Active 1 capsule BD U/F Mini Pen Needle [facility] [place] 78042722850 31G X 5 MM Active USE DIRECTED FOUR TIMES DAILY GlipiZIDE [facility] 99189078088 10 mg Orally qd LAST REFILL, MUST SEE DOCTOR February 10, 2018 Active 1 tablet OneTouch Test NDC 0 - In Vitro three times a day DX: E11.65 March 05, 2017 Active as directed One Touch/One Touch II Starter NDC 0 - In Vitro once a day March 05, 2017 Active as directed Vital Signs Date/Time: March 31, 2018 BMI 27.17 Index Weight 184 lbs Height 69 in Cardiac Monitoring Heart Rate 86 /min Blood Pressure Diastolic 84 mm Hg Blood Pressure Systolic 134 mm Hg Results No Known Results Summary Purpose eClinicalWorks Submission
--- OUTSIDE RECORDS SUMMARY | 2019-04-25 12:00 | XMS REPORT ---
Author Author Juan Snyder Organization [employer] Address Unknown Phone Unavailable Care Team Providers Care Sea Air Land Officer Name Role Phone Juan Snyder CP Unavailable [...] Start Date End Date Status Dosage GlipiZIDE [facility] 33139161710 10 mg Orally qd LAST REFILL, NEEDS BLOOD WORK Active 1 tablet Clopidogrel Bisulfate [facility] 63255401214 75 mg orally qd LAST REFILL, MUST SEE DOCTOR Active 1 tablet Results No Known Results Summary Purpose eClinicalWorks Submission
--- OUTSIDE RECORDS SUMMARY | 2019-04-25 12:00 | XMS REPORT ---
Author Author Shikha Pickard [facility] eClinical[employer] Address Unknown Phone Unavailable Care Team Providers Care Piece Work Checker Name Role Phone Shikha Pickard CP Unavailable Allergies, Adverse Reactions, Alerts Substance Reaction Event Type Tricor Info Not Available Drug Allergy Lipitor Info Not Available Drug Allergy Codeine Phosphate nausea Drug Allergy Problems Problem Type Condition Code Onset Dates Condition Status Problem Hypertriglyceridemia E78.1 Active Problem Hx-TIA (transient ischemic attack) Z86.73 Active Problem 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 Active Problem Osteoarthritis of spine with radiculopathy, lumbar region M47.26 Active Problem Insulin long-term use Z79.4 Active Problem Anxiety F41.9 Active Problem Erectile dysfunction due to diseases [...] Z68.27 Active Problem Overweight E66.3 Active Problem GERD (gastroesophageal reflux disease) K21.9 Active Assessment Rib pain on left side R07.81 Active Problem Atheromatous plaque I70.90 Active Problem Osteopenia M85.80 Active Medications Medication Code System Code Instructions Start Date End Date Status Dosage GlipiZIDE [facility] 77580861219 10 MG Active TAKE 1 TABLET BY MOUTH ONCE A DAY Lisinopril ND 34209153589 5 MG orally once a day Active 1 tablet OneTouch Test NDC 0 - In Vitro three times a day DX: E11.65 March 05, 2017 Active as directed Acetaminophen-Codeine #3 ND 12555683602 300-30 MG Oral Active (Schedule III Drug) Advil [facility] 02261493449 200 MG Orally every 6 hrs Active 1 tablet with food or milk as needed BD U/F Mini Pen Needle [facility] 01986667310 31G X 5 MM four times a day (qid) Active use as directed four times daily Pen [place] 12/27" [facility] 87351184000 31G X 5 MM (12/27 in vitro use QID DX: 250.03 May 25, 2013 Active as directed Humalog KwikPen [facility] [address]-48 100 UNIT/ML subcutaneously tid with meals DISP #28 PENS Active 30 units OneTouch Delica Lancets Fine [facility] 72874403775 - Active USE DIRECTED 3 TIMES DAILY One Touch/One Touch II Starter [facility] 0 - In Vitro once a day March 05, 2017 Active as directed Trilipix [facility] 33001847362 135 MG Orally Once a day Active 1 capsule Centrum Silver Adult 50+ [facility] 20665487463 Orally Active not defined Lantus SoloStar [facility] 11624021721 100 UNIT/ML Active INJECT SUBCUTANEOUSLY 64 UNITS ONCE A DAY BD Pen Needle Lara U/F [facility] 31342583773 32G X 4 MM Active USE DIRECTED 4 TIMES DAILY Simvastatin [facility] 15147027441 40 mg Active TAKE 2 TABLETS BY MOUTH EVERY EVENING Clopidogrel Bisulfate [facility] 09689109155 75 MG Active TAKE 1 TABLET BY MOUTH ONCE A DAY OneTouch Lancets [facility] 82213418381 - SQ three times a day DX: E11.65 March 05, 2017 Active as directed Tamiflu [facility] 89817967381 75 MG Orally Twice a day January 26, 2019 Active 1 capsule Invokana [facility] 10898257614 100 mg Orally Once a day 2018 Jun 14, 2019 Active 1 tablet OneTouch Ultra Test [facility] 22249878209 - Active USE DIRECTED 3 TIMES DAILY Klonopin [facility] 72628642938 0.5 MG Orally twice a day (bid) PRN March 31, 2018 Active 1 tablet at bedtime Lyrica [facility] 57003318583 50 mg Orally twice a day 2017 Active 1 capsule Trilipix [facility] 77409973008 135 MG Orally Once a day Active 1 capsule BD Pen Needle Lara U/F [facility] 27135095959 32G X 4 MM Active USE DIRECTED 4 TIMES DAILY FOR LANTUS AND HUMALOG INSULIN Aspirin [facility] 92643540980 81 MG Orally Once a day Active 1 tablet Vital Signs Date/Time: March 17, 2019 BMI 27.32 Index Weight 185 lbs Height 69 in Cardiac Monitoring Heart Rate 68 /min Blood Pressure Diastolic 68 mm Hg Blood Pressure Systolic 118 mm Hg Results Name Result Date Reference Range Unit Abnormality Flag Ribs Unil 2 View- Left Xray Summary Purpose eClinicalWorks Submission
--- OUTSIDE RECORDS SUMMARY | 2019-04-25 12:01 | XMS REPORT ---
Author Author Juan Snyder [facility] eClinicalWorks Address Unknown Phone Unavailable Care Team Providers Care Box Covering Machine Operator Name Role Phone Juan Snyder CP Unavailable Allergies, Adverse Reactions, Alerts Substance Reaction Event Type Tricor Info Not Available Drug Allergy Lipitor Info Not Available Drug Allergy Codeine Phosphate nausea Drug Allergy Problems Problem Type Condition Code Onset Dates Condition Status Problem GERD (gastroesophageal reflux disease) K21.9 Active Problem Hypertriglyceridemia E78.1 Active Problem Osteopenia M85.80 Active Problem Bulging lumbar disc M51.26 Active Assessment Essential hypertension I10 Active Problem Foraminal stenosis of lumbar region M99.83 Active Assessment Type 2 diabetes mellitus with hyperglycemia E11.65 Active Assessment Mixed hyperlipidemia E78.2 Active Problem Anxiety F41.9 Active Problem Hx-TIA (transient ischemic attack) Z86.73 [...] Problem Carotid artery narrowing I65.29 Active Assessment Chest pain, unspecified type R07.9 Active Problem Mixed hyperlipidemia E78.2 Active Problem BMI 27.0-27.9,adult Z68.27 Active Medications Medication Code System Code Instructions Start Date End Date Status Dosage Trilipix [facility] 28663471969 135 MG Orally Once a day Dec 08, 2017 Active 1 capsule Advil [facility] 40624982605 200 MG Orally every 6 hrs Active 1 tablet with food or milk as needed Lantus SoloStar [facility] 71302024318 100 UNIT/ML Subcutaneous once a day Active 64 units BD U/F Mini Pen Needle [facility] 70752632863 31G X 5 MM Active USE DIRECTED FOUR TIMES DAILY One Touch/One Touch II Starter NDC 0 - In Vitro once a day March 05, 2017 Active as directed GlipiZIDE ND 17371053184 10 mg Orally qd LAST REFILL, MUST SEE DOCTOR February 10, 2018 Active 1 tablet Lyrica ND 43983166996 50 mg Orally twice a day 2017 Active 1 capsule OneTouch Ultra Test [facility] 85177297311 - Active USE DIRECTED 3 TIMES DAILY OneTouch Test ND 0 - In Vitro three times a day DX: E11.65 March 05, 2017 Active as directed Clopidogrel Bisulfate [facility] 35410712629 75 mg Orally qd LAST REFILL, MUST SEE DOCTOR February 10, 2018 Active 1 tablet Pen [place] 3/16" [facility] 87848658826 31G X 5 MM (316 in vitro use QID DX: 250.03 May 25, 2013 Active as directed Klonopin [facility] 49047434077 0.5 MG Orally twice a day (bid) PRN March 31, 2018 Active 1 tablet at bedtime BD Pen Needle Lara U/F [facility] 83493988513 32G X 4 MM Active USE DIRECTED 4 TIMES DAILY FOR LANTUS AND HUMALOG INSULIN Lisinopril [facility] 70477018484 5 MG Active TAKE 1 TABLET BY MOUTH ONCE A DAY OneTouch Delica Lancets Fine [facility] 18104027982 - Active USE DIRECTED 3 TIMES DAILY Aspirin [facility] 61935851101 81 MG Orally Once a day Active 1 tablet Centrum Silver Adult 50+ [facility] 92581633290 Orally Active not defined Simvastatin [facility] 02468556057 40 MG Active TAKE 2 TABLETS BY MOUTH EVERY EVENING OneTouch Lancets [facility] 38410506452 - SQ three times a day DX: E11.65 March 05, 2017 Active as directed BD Pen Needle Lara U/F [facility] 83163085644 32G X 4 MM subcutaneously use QID for Lantus and Humalog dx: E11.65, Z79.4 Nov 16, 2015 Active as directed Trilipix [facility] 82472188438 135 MG Orally Once a day Active 1 capsule Humalog KwikPen [facility] [address]-42 100 UNIT/ML three times a day (tid) Active INJECT 26-30 UNITS SUBCUTANEOUSLY BEFORE MEALS DIRECTED Vital Signs Date/Time: April 02, 2018 BMI 27.17 Index Weight 184 lbs Height 69 in Cardiac Monitoring Heart Rate 66 /min Blood Pressure Diastolic 74 mm Hg Blood Pressure Systolic 118 mm Hg Results No Known Results Summary Purpose eClinicalWorks Submission
--- OUTSIDE RECORDS SUMMARY | 2019-04-25 12:01 | XMS REPORT ---
Author Author Juan Snyder Organization eClinicalWorks Address Unknown Phone Unavailable Care Team Providers Care Property Utilization Officer Name Role Phone Juan Snyder CP Unavailable Allergies, Adverse Reactions, Alerts Substance Reaction Event Type Tricor Info Not Available Drug Allergy Lipitor Info Not Available Drug Allergy Codeine Phosphate nausea Drug Allergy Problems Problem Type Condition Code Onset Dates Condition Status Assessment Sciatic leg pain M54.30 Active Assessment Carotid artery narrowing I65.29 Active Assessment Acute left-sided low back pain with left-sided sciatica M54.42 Active Assessment Anxiety F41.9 Active Assessment Encounter to discuss test results Z71.2 Active Assessment Hypertriglyceridemia E78.1 Active Assessment Essential hypertension I10 Active Assessment Mixed hyperlipidemia E78.2 Active Problem GERD (gastroesophageal reflux disease) K21.9 Active Assessment Hypogonadism in male E29.1 Active Problem Osteopenia M85.80 Active Assessment Type [...] Start Date End Date Status Dosage Trilipix [facility] 97792053510 135 MG Orally Once a day Active 1 capsule Centrum Silver Adult 50+ [facility] 12884991129 Orally Active not defined One Touch/One Touch II Starter ND 0 - In Vitro once a day March 05, 2017 Active as directed Lisinopril [facility] 56521029609 5 MG orally once a day Active 1 tablet Simvastatin [facility] 46142196711 40 mg Active TAKE 2 TABLETS BY MOUTH EVERY EVENING Humalog KwikPen [facility] [address]-96 100 UNIT/ML three times a day (tid) Active INJECT 30 UNITS SUBCUTANEOUSLY BEFORE MEALS DIRECTED BD U/F Mini Pen Needle [facility] 76816912912 31G X 5 MM four times a day (qid) Active use as directed four times daily Aspirin [facility] 51269863152 81 MG Orally Once a day Active 1 tablet OneTouch Ultra Test [facility] 99418542555 - Active USE DIRECTED 3 TIMES DAILY OneTouch Test [facility] 0 - In Vitro three times a day DX: E11.65 March 05, 2017 Active as directed BD Pen Needle Lara U/F [facility] 65021325285 32G X 4 MM Active USE DIRECTED 4 TIMES DAILY FOR LANTUS AND HUMALOG INSULIN GlipiZIDE [facility] 04189840786 10 mg Orally Once a day Active 1 tablet Invokana [facility] 87698963478 100 mg Orally Once a day 2018 Jun 14, 2019 Active 1 tablet Pen [place] 3/16" [facility] 42669074314 31G X 5 MM (3/16 in vitro use QID DX: 250.03 May 25, 2013 Active as directed Clopidogrel Bisulfate [facility] 70166837719 75 MG Active TAKE 1 TABLET BY MOUTH ONCE A DAY Advil [facility] 68139045565 200 MG Orally every 6 hrs Active 1 tablet with food or milk as needed Lyrica [facility] 99295198622 50 mg Orally twice a day 2017 Active 1 capsule Trilipix [facility] 08925219142 135 MG Orally Once a day Active 1 capsule OneTouch Delica Lancets Fine [facility] 82913387057 - Active USE DIRECTED 3 TIMES DAILY Lantus SoloStar [facility] 75904731991 100 UNIT/ML Active INJECT SUBCUTANEOUSLY 64 UNITS ONCE A DAY Klonopin [facility] 87851562900 0.5 MG Orally twice a day (bid) PRN March 31, 2018 Active 1 tablet at bedtime BD Pen Needle Lara U/F [facility] 10783196633 32G X 4 MM Active USE DIRECTED 4 TIMES DAILY OneTouch Lancets [facility] 56482770913 - SQ three times a day DX: E11.65 March 05, 2017 Active as directed Vital Signs Date/Time: December 16, 2018 BMI 28.20 Index Weight 191 lbs Height 69 in Cardiac Monitoring Heart Rate 69 /min Blood Pressure Diastolic 74 mm Hg Blood Pressure Systolic 118 mm Hg Results No Known Results Summary Purpose eClinicalWorks Submission
--- OUTSIDE RECORDS SUMMARY | 2019-04-25 12:01 | XMS REPORT ---
Author Author Juan Snyder Organization e[employer] Address Unknown Phone Unavailable Care Team Providers Care Wedding Day Coordinator Name Role Phone Juan Snyder CP Unavailable Allergies, Adverse Reactions, Alerts Substance Reaction Event Type Tricor Info Not Available Drug Allergy Lipitor Info Not Available Drug Allergy Codeine Phosphate nausea Drug Allergy Problems Problem Type Condition Code Onset Dates Condition Status Assessment Anxiety F41.9 Active Assessment Mixed hyperlipidemia E78.2 Active Assessment Sciatic leg pain M54.30 Active Problem Carotid artery narrowing I65.29 Active Assessment Acute left-sided low back pain with left-sided sciatica M54.42 Active Problem BMI 27.0-27.9,adult Z68.27 Active Assessment Hx-TIA (transient ischemic attack) Z86.73 Active Problem GERD (gastroesophageal reflux disease) K21.9 Active Problem Hypertriglyceridemia E78.1 Active Problem Osteopenia M85.80 Active Problem Bulging lumbar disc M51.26 Active Problem Foraminal stenosis of lumbar region M99.83 Active Assessment Type 2 diabetes mellitus with hyperglycemia E11.65 Active Assessment Hypertriglyceridemia E78.1 Active Problem Anxiety F41.9 Active Assessment BMI 27.0-27.9,adult Z68.27 Active Problem Hx-TIA (transient ischemic attack) Z86.73 [...] Start Date End Date Status Dosage Trilipix NDC 15491324628 135 MG Orally Once a day Dec 08, 2017 Active 1 capsule Trilipix NDC 21262467296 135 MG Orally Once a day Active 1 capsule Lisinopril [facility] 14456866243 5 MG Active TAKE 1 TABLET BY MOUTH ONCE A DAY Aspirin [facility] 25373717933 81 MG Orally Once a day Active 1 tablet One Touch/One Touch II Starter [facility] 0 - In Vitro once a day March 05, 2017 Active as directed Advil [facility] 29356998215 200 MG Orally every 6 hrs Active 1 tablet with food or milk as needed GlipiZIDE [facility] 10712691255 10 mg Orally qd LAST REFILL, MUST SEE DOCTOR February 10, 2018 Active 1 tablet Clopidogrel Bisulfate [facility] 44164103727 75 mg Orally qd LAST REFILL, MUST SEE DOCTOR February 10, 2018 Active 1 tablet OneTouch Ultra Test [facility] 42161620990 - Active USE DIRECTED 3 TIMES DAILY Centrum Silver Adult 50+ [facility] 17439856074 Orally Active not defined BD U/F Mini Pen Needle [facility] 40845221936 31G X 5 MM four times a day (qid) Active use as directed four times daily BD Pen Needle Lara U/F [facility] 08059810999 32G X 4 MM subcutaneously use QID for Lantus and Humalog dx: E11.65, Z79.4 Nov 16, 2015 Active as directed GlipiZIDE [facility] 69072221173 10 mg Orally Once a day April 10, 2018 Active 1 tablet Klonopin [facility] 23571584240 0.5 MG Orally twice a day (bid) PRN March 31, 2018 Active 1 tablet at bedtime Humalog KwikPen [facility] [address]-96 100 UNIT/ML three times a day (tid) Active INJECT 26-30 UNITS SUBCUTANEOUSLY BEFORE MEALS DIRECTED Simvastatin [facility] 83844516758 40 MG Active TAKE 2 TABLETS BY MOUTH EVERY EVENING BD Pen Needle Lara U/F [facility] 04581781440 32G X 4 MM Active USE DIRECTED 4 TIMES DAILY FOR LANTUS AND HUMALOG INSULIN OneTouch Delica Lancets Fine [facility] 67939005465 - Active USE DIRECTED 3 TIMES DAILY Pen [place] 16" [facility] 18173844317 31G X 5 MM (12/27 in vitro use QID DX: 250.03 May 25, 2013 Active as directed Lantus SoloStar [facility] 29534195095 100 UNIT/ML Subcutaneous once a day Active 64 units GlipiZIDE [facility] 66838153388 10 mg Orally qd LAST REFILL, MUST SEE DOCTOR February 10, 2018 Active 1 tablet OneTouch Lancets [facility] 35227685517 - SQ three times a day DX: E11March 05, 2017 Active as directed OneTouch Test NDC 0 - In Vitro three times a day DX: E11March 05, 2017 Active as directed Lyrica [facility] 40446383216 50 mg Orally twice a day 2017 Active 1 capsule Vital Signs Date/Time: April 10, 2018 BMI 27.32 Index Weight 185 lbs Height 69 in Cardiac Monitoring Heart Rate 78 /min Blood Pressure Diastolic 74 mm Hg Blood Pressure Systolic 122 mm Hg Results No Known Results Summary Purpose eClinicalWorks Submission
--- OUTSIDE RECORDS SUMMARY | 2019-04-25 12:01 | XMS REPORT ---
Author Author Juan Snyder Organization [employer] Address Unknown Phone Unavailable Care Team Providers Care Mental Health Tech Name Role Phone Juan Snyder CP Unavailable Allergies No Known Allergies Problems Problem Type Condition Code Onset Dates Condition Status Problem GERD (gastroesophageal reflux disease) K21.9 Active Problem Hypertriglyceridemia E78.1 Active Problem Osteopenia M85.80 Active Problem Bulging lumbar disc M51.26 Active Assessment Hypertriglyceridemia E78.1 Active Problem Foraminal stenosis of lumbar region M99.83 Active Assessment Essential hypertension I10 Active Assessment Type 2 diabetes mellitus with hyperglycemia E11.65 Active Problem Anxiety F41.9 Active Problem Hx-TIA [...] Problem Carotid artery narrowing I65.29 Active Assessment Mixed hyperlipidemia E78.2 Active Problem Mixed hyperlipidemia E78.2 Active Problem BMI 27.0-27.9,adult Z68.27 Active Medications Medication Code System Code Instructions Start Date End Date Status Dosage Simvastatin [facility] [place] 2[place] 58890263420 40 mg Active TAKE 2 TABLETS BY MOUTH EVERY EVENING Lisinopril [facility] [place] [facility] 48368471084 5 MG orally once a day Active 1 tablet Trilipix ND 94454166371 135 MG Orally Once a day Dec 08, 2017 Active 1 capsule Results No Known Results Summary Purpose eClinicalWorks Submission
--- OUTSIDE RECORDS SUMMARY | 2019-04-25 12:02 | XMS REPORT ---
Author Author Juan Snyder [facility] eClinicalWorks Address Unknown Phone Unavailable Care Team Providers Care Body Shop Technician Name Role Phone Juan Snyder CP Unavailable Allergies, Adverse Reactions, Alerts Substance Reaction Event Type Tricor Info Not Available Drug Allergy Lipitor Info Not Available Drug Allergy Codeine Phosphate nausea Drug Allergy Problems Problem Type Condition Code Onset Dates Condition Status Assessment Hypogonadism in male E29.1 Active Problem Carotid artery narrowing I65.29 Active Assessment Insulin long-term use Z79.4 Active Problem BMI 27.0-27.9,adult Z68.27 Active Assessment Essential hypertension I10 Active Problem GERD (gastroesophageal reflux disease) K21.9 Active Problem Hypertriglyceridemia E78.1 Active Problem Osteopenia M85.80 Active Problem Bulging lumbar disc M51.26 Active Problem Foraminal stenosis of lumbar region M99.83 Active Assessment Cervical radiculopathy M54.12 Active Assessment Type 2 diabetes mellitus with hyperglycemia E11.65 Active Problem Anxiety F41.9 Active Assessment Mixed hyperlipidemia E78.2 Active Problem Hx-TIA (transient ischemic attack) Z86.73 [...] Instructions Start Date End Date Status Dosage Klonopin [facility] 33272059911 0.5 MG Orally twice a day (bid) PRN March 31, 2018 Active 1 tablet at bedtime Trilipix [facility] 35870679212 135 MG Orally Once a day Active 1 capsule Humalog KwikPen [facility] [address]-34 100 UNIT/ML three times a day (tid) Active INJECT 26-30 UNITS SUBCUTANEOUSLY BEFORE MEALS DIRECTED Lyrica [facility] 67417808225 50 mg Orally twice a day 2017 Active 1 capsule Advil [facility] 87372511899 200 MG Orally every 6 hrs Active 1 tablet with food or milk as needed OneTouch Delica Lancets Fine [facility] 86115721112 - Active USE DIRECTED 3 TIMES DAILY [place] 16" [facility] 99865167542 31G X 5 MM (12/27 in vitro use QID DX: 250.03 May 25, 2013 Active as directed Lisinopril [facility] 38827049686 5 MG orally once a day Active 1 tablet Lantus SoloStar ND 07569022770 100 UNIT/ML Subcutaneous once a day Active 64 units OneTouch Lancets [facility] 52174725837 - SQ three times a day DX: E11.65 March 05, 2017 Active as directed GlipiZIDE [facility] 01829549501 10 mg Orally qd LAST REFILL, MUST SEE DOCTOR February 10, 2018 Active 1 tablet BD Pen Needle Lara U/F [facility] 89631219316 32G X 4 MM Active USE DIRECTED 4 TIMES DAILY FOR LANTUS AND HUMALOG INSULIN OneTouch Test NDC 0 - In Vitro three times a day DX: E11.65 March 05, 2017 Active as directed OneTouch Ultra Test [facility] 19172762392 - Active USE DIRECTED 3 TIMES DAILY Trilipix [facility] 18644227698 135 MG Orally Once a day Dec 08, 2017 Active 1 capsule Aspirin [facility] 90534684957 81 MG Orally Once a day Active 1 tablet Simvastatin ND 95153206834 40 mg Active TAKE 2 TABLETS BY MOUTH EVERY EVENING One Touch/One Touch II Starter NDC 0 - In Vitro once a day March 05, 2017 Active as directed BD U/F Mini Pen Needle ND 91411545742 31G X 5 MM four times a day (qid) Active use as directed four times daily Clopidogrel Bisulfate ND 72644083207 75 mg Orally Once a day Jun 01, 2018 Active 1 tablet Centrum Silver Adult 50+ ND 73355562781 Orally Active not defined BD Pen Needle Lara U/F ND 90426179792 32G X 4 MM subcutaneously use QID for Lantus and Humalog dx: E11.65, Z79.4 Nov 16, 2015 Active as directed Vital Signs Date/Time: Jul 21, 2018 BMI 27.76 Index Weight 188 lbs Height 69 in Cardiac Monitoring Heart Rate 71 /min Blood Pressure Diastolic 74 mm Hg Blood Pressure Systolic 144 mm Hg Results Name Result Date Reference Range Unit Abnormality Flag Spine cervical 4 views- Xray Summary Purpose eClinicalWorks Submission
--- OUTSIDE RECORDS SUMMARY | 2019-04-25 12:02 | XMS REPORT ---
Author Author Juan Snyder Organization [employer] Address Unknown Phone Unavailable Care Team Providers Care Glass Toughening Operator Name Role Phone Juan Snyder CP Unavailable Allergies, Adverse Reactions, Alerts Substance Reaction Event Type Tricor Info Not Available Drug Allergy Lipitor Info Not Available Drug Allergy Codeine Phosphate nausea Drug Allergy Problems Problem Type Condition Code Onset Dates Condition Status Assessment Sciatic leg pain M54.30 Active Assessment Encounter to discuss test results Z71.2 Active Assessment Anxiety F41.9 Active Assessment Acute left-sided low back pain with left-sided sciatica M54.42 Active Assessment Hypertriglyceridemia E78.1 Active Assessment Insulin long-term use Z79.4 Active Assessment Atheromatous plaque I70.90 Active Assessment Carotid artery narrowing I65.29 Active Assessment Essential hypertension I10 Active Problem [...] M99.83 Active Problem Mixed hyperlipidemia E78.2 Active Assessment Bulging lumbar disc M51.26 Active Problem Essential hypertension I10 Active Problem Type 2 diabetes mellitus with hyperglycemia E11.65 Active Problem Hypogonadism in male E29.1 Active Problem Carotid artery narrowing I65.29 Active Problem BMI 27.0-27.9,adult Z68.27 Active Problem Overweight E66.3 Active Problem Atheromatous plaque I70.90 Active Medications Medication Code System Code Instructions Start Date End Date Status Dosage BD Pen Needle Lara U/F [facility] 18103893095 32G X 4 MM Active USE DIRECTED 4 TIMES DAILY FOR LANTUS AND HUMALOG INSULIN One Touch/One Touch II Starter ND 0 - In Vitro once a day March 05, 2017 Active as directed GlipiZIDE [facility] 87421300616 10 mg Orally twice a day February 10, 2018 Active 1 tablet Pen [place] /16" [facility] 34304545404 31G X 5 MM (16 in vitro use QID DX: 250.03 May 25, 2013 Active as directed OneTouch Lancets [facility] 14441676169 - SQ three times a day DX: E11.65 March 05, 2017 Active as directed Centrum Silver Adult 50+ [facility] 51364044552 Orally Active not defined Lisinopril [facility] 95748944755 5 MG orally once a day Active 1 tablet Humalog KwikPen [facility] [address]-43 100 UNIT/ML three times a day (tid) Active INJECT 26-30 UNITS SUBCUTANEOUSLY BEFORE MEALS DIRECTED Lantus SoloStar [facility] 15468389032 100 UNIT/ML Subcutaneous once a day Active 64 units Advil [facility] 14221336760 200 MG Orally every 6 hrs Active 1 tablet with food or milk as needed OneTouch Test ND 0 - In Vitro three times a day DX: E11.65 March 05, 2017 Active as directed Lyrica [facility] 73160206110 50 mg Orally twice a day 2017 Active 1 capsule Trilipix [facility] 63879571092 135 MG Orally Once a day Active 1 capsule Klonopin [facility] 60307991271 0.5 MG Orally twice a day (bid) PRN March 31, 2018 Active 1 tablet at bedtime Aspirin [facility] 03944661798 81 MG Orally Once a day Active 1 tablet Invokana [facility] 47762879063 100 mg Orally Once a day 2018 February 09, 2019 Active 1 tablet OneTouch Delica Lancets Fine [facility] 14409477540 - Active USE DIRECTED 3 TIMES DAILY BD U/F Mini Pen Needle [facility] 79673537239 31G X 5 MM four times a day (qid) Active use as directed four times daily Clopidogrel Bisulfate [facility] 61454491875 75 mg Orally Once a day Jun 01, 2018 Active 1 tablet OneTouch Ultra Test [facility] 99674911756 - Active USE DIRECTED 3 TIMES DAILY BD Pen Needle Lara U/F [facility] 30219697173 32G X 4 MM subcutaneously use QID for Lantus and Humalog dx: E11.65, Z79.4 Nov 16, 2015 Active as directed Simvastatin [facility] 60734088632 40 mg Active TAKE 2 TABLETS BY MOUTH EVERY EVENING Vital Signs Date/Time: 2018 BMI 28.06 Index Weight 190 lbs Height 69 in Cardiac Monitoring Heart Rate 72 /min Blood Pressure Diastolic 74 mm Hg Blood Pressure Systolic 128 mm Hg Results No Known Results Summary Purpose eClinicalWorks Submission
--- OUTSIDE RECORDS SUMMARY | 2019-04-25 12:02 | XMS REPORT ---
Author Yessy Burk [facility] eClinicalWorks Address Unknown Phone Unavailable Care Team Providers Care Loan Operations Manager Name Role Phone Yessy Rajput Unavailable Allergies, Adverse Reactions, Alerts Substance Reaction [...] Instructions Start Date End Date Status Dosage Lantus SoloStar [facility] 51385126875 100 UNIT/ML Active INJECT SUBCUTANEOUSLY 64 UNITS ONCE A DAY Simvastatin [facility] 35123479615 40 mg Active TAKE 2 TABLETS BY MOUTH EVERY EVENING Trilipix ND 40202988563 135 MG Orally Once a day Active 1 capsule Klonopin [facility] 31284822169 0.5 MG Orally twice a day (bid) PRN March 31, 2018 Active 1 tablet at bedtime OneTouch Test ND 0 - In Vitro three times a day DX: E11March 05, 2017 Active as directed GlipiZIDE [facility] 54292810080 10 mg Orally Once a day Active 1 tablet Tamiflu [facility] 70087768129 75 MG Orally Twice a day January 26, 2019 Active 1 capsule Advil [facility] 53971351838 200 MG Orally every 6 hrs Active 1 tablet with food or milk as needed Aspirin [facility] 22022343017 81 MG Orally Once a day Active 1 tablet OneTouch Lancets [facility] 82374581320 - SQ three times a day DX: E11March 05, 2017 Active as directed Humalog KwikPen [facility] [address]-96 100 UNIT/ML three times a day (tid) Active INJECT 30 UNITS SUBCUTANEOUSLY BEFORE MEALS DIRECTED OneTouch Delica Lancets Fine [facility] 55742387324 - Active USE DIRECTED 3 TIMES DAILY Acetaminophen-Codeine #3 [facility] 33319998225 300-30 MG Oral Active (Schedule III Drug) Invokana [facility] 83150562198 100 mg Orally Once a day 2018 Jun 14, 2019 Active 1 tablet Lyrica [facility] 54419804224 50 mg Orally twice a day 2017 Active 1 capsule Centrum Silver Adult 50+ [facility] 69635248331 Orally Active not defined Tylenol/Codeine #3 [facility] 02614077131 300-30 MG Orally every 6 hrs PRN January 26, 2019 February 02, 2019 Active 1 tablet as needed OneTouch Ultra Test [facility] 56788668238 - Active USE DIRECTED 3 TIMES DAILY BD Pen Needle Lara U/F [facility] 20587182314 32G X 4 MM Active USE DIRECTED 4 TIMES DAILY FOR LANTUS AND HUMALOG INSULIN Clopidogrel Bisulfate [facility] 82347052171 75 MG Active TAKE 1 TABLET BY MOUTH ONCE A DAY Lisinopril [facility] 25359216912 5 MG orally once a day Active 1 tablet One Touch/One Touch II Starter [place] 0 - In Vitro once a day March 05, 2017 Active as directed Pen [place] 3/16" [facility] 99907482821 31G X 5 MM (316 in vitro use QID DX: 250.03 May 25, 2013 Active as directed Trilipix [facility] 21566911441 135 MG Orally Once a day Active 1 capsule BD Pen Needle Lara U/F [facility] 44617734336 32G X 4 MM Active USE DIRECTED 4 TIMES DAILY BD U/F Mini Pen Needle [facility] 66740678926 31G X 5 MM four times a day (qid) Active use as directed four times daily Vital Signs Date/Time: January 26, 2019 BMI 27.32 Index Weight 185 lbs Height 69 in Cardiac Monitoring Heart Rate 68 /min Blood Pressure Diastolic 64 mm Hg Blood Pressure Systolic 128 mm Hg Results No Known Results Summary Purpose eClinicalWorks Submission
--- OUTSIDE RECORDS SUMMARY | 2019-04-25 12:03 | XMS REPORT ---
Author Author Juan Snyder Organization eClinicalWorks Address Unknown Phone Unavailable Care Team Providers Care Stitching Machine Operator Name Role Phone Juan Snyder Unavailable Encounters Encounter Location Date Refill Request [facility] Nov 04, 2013 WRIST [facility] Jul 23, 2013 Test results [facility] Jul 28, 2013 ECHO/GHEB [facility] Sep 22, 2013 Problems Problem Type Condition ICD-9 Code Onset Dates Condition Status Problem HTN (hypertension) 401.9 Active Problem Hyperlipidemia 272.4 Active Problem SOB (shortness of breath) 786.05 Active Problem GERD (Esophageal reflux) 530.81 Active Problem Hypogonadism (Other testicular hypofunction) 257.2 Active Problem Diabetes mellitus without mention of complication, type II or unspecified type, uncontrolled 250.02 Active Problem Polyneuropathy in diabetes 357.2 Active Medications Medication Code System Code Instructions Start Date End Date Status Dosage Trilipix [facility] [address]-71 135 MG Orally Once a day Active 1 capsule Levemir Flexpen [facility] [address]-51 100 UNIT/ML Subcutaneous Q am December 31, 2012 Active 56 units Lisinopril [facility] [address]-66 5 MG Orally Once a day Active 1 tablet Simvastatin [facility] [address]-94 80 MG Orally Once a day Active 1 tablet in the evening Social History Social History Element Qualifiers Date Reported Tobacco Use: . Are you a: never smoker Oct 06, 2013 Marital Status: . Oct 06, 2013 Do you drink alcohol? . 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
--- OUTSIDE RECORDS SUMMARY | 2019-04-25 12:03 | XMS REPORT ---
Author Author Mile Wilkinson [facility] eClinicalWorks Address Unknown Phone Unavailable Care Team Providers Care Video Producer Name Role Phone Mile Wilkinson Unavailable Allergies, Adverse Reactions, Alerts Substance Reaction Event Type Tricor Info Not Available Drug Allergy Lipitor Info Not Available Drug Allergy Codeine Phosphate nausea Drug Allergy Encounters Encounter Location Date WRIST [facility] Jul 23, 2013 Problems Problem Type Condition ICD-9 Code Onset Dates Condition Status Problem Diabetes mellitus without mention of complication, type II or unspecified type, uncontrolled 250.02 Active Problem Essential hypertension, benign 401.1 Active Problem Hyperlipemia 272.4 Active Problem Hypogonadism (Other testicular hypofunction) 257.2 Active Assessment Left wrist pain 719.43 Active Problem Polyneuropathy in diabetes 357.2 Active Problem GERD (Esophageal reflux) 530.81 Active Medications Medication Code System Code Instructions Start Date End Date Status Dosage NovoLog Flexpen [facility] [address]-28 100 UNIT/ML Subcutaneous three times a day (tid) Active 26 units Aspir-81 [facility] [address]-53 81 MG Orally Once a day Active 1 tablet Trilipix [facility] [address]-00 135 MG Orally Once a day Active 1 capsule Pen [place] 316" MULTUM 97958 31G X 5 MM (316") in vitro use QID DX: 250.03 May 25, 2013 Active as directed Testosterone Cypionate [facility] [address]-87 200 MG/ML intramuscularly every 2 weeks Active INJECT 1 ML INTRAMUSCULARLY EVERY 2 WEEKS Levemir Flexpen [facility] [address]-01 100 UNIT/ML Subcutaneous as directed December 31, 2012 Active 52-56 units Vitamin D (Ergocalciferol) [facility] [address]-76 17391 UNIT Orally once per week May 11, 2013 Aug 09, 2013 Active 1 capsule Lisinopril [facility] [address]-02 5 MG Orally Once a day Active 1 tablet Simvastatin [facility] [address]-92 80 MG Orally Once a day Active 1 tablet in the evening Social History Social History Element Qualifiers Date Reported Tobacco Use: . Are you a: never smoker Jul 23, 2013 Marital Status: . Jul 23, 2013 Do you drink alcohol? . 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
--- OUTSIDE RECORDS SUMMARY | 2019-04-25 12:03 | XMS REPORT ---
Author Author Juan Snyder Organization eClinicalWorks Address Unknown Phone Unavailable Care Team Providers Care Registry Np Name Role Phone Juan Snyder Unavailable Encounters Encounter Location Date [facility]ST [facility] Jul 23, 2013 Test results [facility] Jul 28, 2013 Problems Problem Type Condition ICD-9 Code Onset Dates Condition Status Problem Diabetes mellitus without mention of complication, type II or unspecified type, uncontrolled 250.02 Active Problem Essential hypertension, benign 401.1 Active Problem Hyperlipemia 272.4 Active Problem Hypogonadism (Other testicular hypofunction) 257.2 Active Problem Polyneuropathy in diabetes 357.2 Active Problem GERD (Esophageal reflux) 530.81 Active Social History Social History Element Qualifiers Date Reported Tobacco Use: . Are you a: never smoker Jul 23, 2013 Marital Status: . Jul 23, 2013 Do you drink alcohol? . 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
--- OUTSIDE RECORDS SUMMARY | 2019-04-25 12:03 | XMS REPORT ---
Author Author Tammy Dasilva [facility] eClinicalWorks Address Unknown Phone Unavailable Care Team Providers Care Clinical Pharmacy Coordinator Name Role Phone Tammy Dasilva Unavailable Allergies, Adverse Reactions, Alerts Substance Reaction Event Type Tricor Info Not Available Drug Allergy Lipitor Info Not Available Drug Allergy Codeine Phosphate nausea Drug Allergy Encounters Encounter Location Date Unknown [facility] May 10, 2014 medication change [facility] Nov 01, 2015 physical exam [facility] Sep 28, 2015 3 MONTH FOLLOW UP [facility] Sep 14, 2015 RESULTS [facility] Jun 10, 2014 NV-BW [facility] Sep 16, 2014 TEST INJ [facility] Aug 27, 2013 BW [facility] Aug 12, 2013 FOLLOW-UP [facility] Sep 21, 2013 Follow-Up [facility] Oct 06, 2013 fbw/ inj [facility] Nov 12, 2013 RESULTS/TEST INJ [facility] Dec 01, 2013 LAB RESULTS [facility] Sep 30, 2014 Refill Request [facility] Nov 04, 2013 Unknown [facility] January 21, 2014 Unknown [facility] January 26, 2014 Unknown [facility] May 03, 2014 WRIST [facility] Jul 23, 2013 Test results [facility] Jul 28, 2013 ECHO/GHEB [facility] Sep 22, 2013 Unknown [facility] January 31, 2015 NV-BW [facility] January 19, 2015 follow up from ER [facility] April 26, 2014 Follow-Up [facility] March 11, 2014 DIABETIC CHK [facility] Jun 10, 2015 F/U pain is not better [facility] Jun 17, 2015 LAB RESULTS [facility] Jul 04, 2015 refill [facility] Aug 31, 2015 COUGH, CONGESTION AND FLU LIKE SYMPTOMS [facility] January 31, 2015 RESULTS [facility] February 07, 2015 RIGHT EYE PAIN [facility] February 16, 2015 Unknown [facility] May 20, 2015 Problems Problem Type Condition ICD-9 Code Onset Dates Condition Status Problem Atheromatous plaque I70.90 Active Problem Essential hypertension I10 Active Problem Carotid artery narrowing I65.29 Active Problem Osteopenia M85.80 Active Problem Type 2 diabetes mellitus with hyperglycemia E11.65 Active Problem Hypertriglyceridemia E78.1 Active Problem Mixed hyperlipidemia E78.2 Active Problem TIA (transient ischemic attack) G45.9 Active Problem GERD (gastroesophageal reflux disease) K21.9 Active Problem Hypogonadism in male E29.1 Active Assessment Type 2 diabetes mellitus with hyperglycemia E11.65 Active Problem History of ureter stent Z98.89 Active Assessment HLD (hyperlipidemia) E78.5 Active Problem Peyronie disease N48.6 Active Problem Overweight E66.3 Active Problem Kidney stone N20.0 Active Problem BMI 27.0-27.9,adult Z68.27 Active Problem Erectile dysfunction due to diseases classified elsewhere N52.1 Active Problem Insulin long-term use Z79.4 Active Medications Medication Code System Code Instructions Start Date End Date Status Dosage Trilipix [facility] 01820573264 135 MG Active TAKE 1 CAPSULE BY MOUTH DAILY Aspirin [facility] [address]-45 325 MG Orally Once a day Active [address] [facility] [address]-56 100 UNIT/ML Subcutaneous 60 units in the morning Nov 01, 2015 Active as directed Humalog KwikPen [facility] [address]-90 100 UNIT/ML Subcutaneous 26 units before meals Nov 01, 2015 Active as directed Fenofibric Acid [facility] [address]-31 135 MG Orally Once a day Nov 01, 2015 Active [address] [facility] [address]86-[address]014 400 UNIT Orally Active as directed Pen [place] 12/27" [facility] [address]36 31G X 5 MM (12/27 in vitro use QID DX: 250.03 May 25, 2013 Active as directed NovoLog Flexpen [facility] [address]-70 100 UNIT/ML Subcutaneous inject 22-26 units three times a day (disp 5 pens) Aug 26, 2015 Active as directed Levemir Flexpen [facility] [address]-61 100 UNIT/ML Active INJECT 60 UNITS SUBCUTANEOUSLY EVERY MORNING Lisinopril [facility] [address]-64 5 MG by mouth daily Active take 1 tablet by mouth daily Simvastatin [facility] [address]-45 80 mg by mouth one time daily Active take 1 tablet by mouth in the evening one time daily BD U/F Mini Pen Needle [facility] 45828623576 31G X 5 MM Active USE DIRECTED FOUR TIMES DAILY Social History Social History Element Qualifiers Date Reported Pneumoccocal Vaccine . No Nov 01, 2015 Last Bone Density: . 09/28/15 Nov 01, 2015 Depression Screening: . negative Nov 01, 2015 Flu Vaccine: . 2014Nov 01, 2015 Last Colonoscopy: . 2009Nov 01, 2015 Tobacco Use: . Are you a: never smoker Nov 01, 2015 Marital Status: . Nov 01, 2015 Do you drink alcohol? . 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
--- OUTSIDE RECORDS SUMMARY | 2019-04-25 12:03 | XMS REPORT ---
Author Author Juan Snyder Organization eClinicalWorks Address Unknown Phone Unavailable Care Team Providers Care Planner/Scheduler Name Role Phone Juan Snyder Unavailable Encounters Encounter Location Date [facility] Jul 23, 2013 Test results [facility] Jul 28, 2013 ECHO/GHEB [facility] Sep 22, 2013 Problems Problem Type Condition ICD-9 Code Onset Dates Condition Status Assessment HTN (hypertension) 401.9 Active Assessment SOB (shortness of breath) 786.05 Active Problem HTN (hypertension) 401.9 Active Problem Hyperlipidemia 272.4 Active Problem SOB (shortness of breath) 786.05 Active Problem GERD (Esophageal reflux) 530.81 Active Problem Hypogonadism (Other testicular hypofunction) 257.2 Active Problem Diabetes mellitus without mention of complication, type II or unspecified type, uncontrolled 250.02 Active Problem Polyneuropathy in diabetes 357.2 Active Social History Social History Element Qualifiers Date Reported Tobacco Use: . Are you a: never smoker Sep 21, 2013 Marital Status: . Sep 21, 2013 Do you drink alcohol? . 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
--- OUTSIDE RECORDS SUMMARY | 2019-04-25 12:03 | XMS REPORT ---
Author Author Juan Snyder Organization eClinicalWorks Address Unknown Phone Unavailable Care Team Providers Care Safety And Skill Based Pay Manager Name Role Phone Juan Snyder CP Unavailable Allergies, Adverse Reactions, Alerts Substance Reaction Event Type Tricor Info Not Available Drug Allergy Lipitor Info Not Available Drug Allergy Codeine Phosphate nausea Drug Allergy Problems Problem Type Condition Code Onset Dates Condition Status Assessment Encounter to discuss test results Z71.2 Active Assessment Rib pain R07.81 Active Assessment Hypertriglyceridemia E78.1 Active Assessment Anxiety F41.9 Active Assessment Insulin long-term use Z79.4 Active Assessment Essential hypertension I10 Active Assessment Mixed hyperlipidemia E78.2 Active Assessment Hypogonadism in male E29.1 Active Assessment GERD (gastroesophageal reflux disease) K21.9 Active Problem Hypertriglyceridemia E78.1 Active Assessment Type 2 diabetes mellitus with hyperglycemia E11.65 Active Problem Osteopenia M85.80 Active Problem 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 Active Problem Acute left-sided low back pain with left-sided sciatica M54.42 Active Problem Hx-TIA (transient ischemic attack) Z86.73 Active Problem Osteoarthritis of spine with radiculopathy, cervical region M47.22 Active Problem Osteoarthritis of spine with radiculopathy, lumbar region M47.26 Active Problem Overweight E66.3 Active Problem Insulin long-term use Z79.4 Active Problem Lung nodule R91.1 Active Problem Erectile dysfunction due to diseases classified elsewhere N52.1 Active Problem Foraminal stenosis of lumbar region M99.83 Active Problem Sciatic leg pain M54.30 Active Problem Anxiety F41.9 Active Problem Bulging lumbar disc M51.26 Active Problem Hypogonadism in male E29.1 Active Assessment Lung nodule R91.1 Active Problem Mixed hyperlipidemia E78.2 Active Problem Atheromatous plaque I70.90 Active Problem Carotid artery narrowing I65.29 Active Problem BMI 27.0-27.9,adult Z68.27 Active Problem Essential hypertension I10 Active Problem Type 2 diabetes mellitus with hyperglycemia E11.65 Active Problem GERD (gastroesophageal reflux disease) K21.9 Active Medications Medication Code System Code Instructions Start Date End Date Status Dosage OneTouch Test NDC 0 - In Vitro three times a day DX: E11.65 March 05, 2017 Active as directed Lyrica [facility] 52198869709 50 mg Orally twice a day 2017 Active 1 capsule One Touch/One Touch II Starter NDC 0 - In Vitro once a day March 05, 2017 Active as directed OneTouch Ultra Test [facility] 34908654168 - Active USE DIRECTED 3 TIMES DAILY Trilipix [facility] 88879915763 135 MG Orally Once a day Active 1 capsule OneTouch Delica Lancets Fine ND 91689122421 - Active USE DIRECTED 3 TIMES DAILY Advil ND 98486056201 200 MG Orally every 6 hrs Active 1 tablet with food or milk as needed GlipiZIDE [facility] 33202291572 10 MG Active TAKE 1 TABLET BY MOUTH ONCE A DAY Lisinopril [facility] 49436764821 5 MG orally once a day Active 1 tablet BD U/F Mini Pen Needle [facility] 20227571040 31G X 5 MM four times a day (qid) Active use as directed four times daily Klonopin [facility] 76510876856 0.5 MG Orally twice a day (bid) PRN March 31, 2018 Active 1 tablet at bedtime Humalog KwikPen [facility] 13027629481 100 UNIT/ML subcutaneously tid with meals DISP #28 PENS Active 30 units Lantus SoloStar ND 02661629083 100 UNIT/ML Active INJECT SUBCUTANEOUSLY 64 UNITS ONCE A DAY Centrum Silver Adult 50+ [facility] 45920941314 Orally Active not defined Pen [place] 3/16" [facility] 85241740436 31G X 5 MM (3/16 in vitro use QID DX: 250.03 May 25, 2013 Active as directed Trilipix [facility] 30451822907 135 MG Orally Once a day Active 1 capsule Clopidogrel Bisulfate [facility] 39400073316 75 MG Active TAKE 1 TABLET BY MOUTH ONCE A DAY BD Pen Needle Lara U/F [facility] 48091914573 32G X 4 MM Active USE DIRECTED 4 TIMES DAILY Invokana [facility] 57377849761 100 mg Orally Once a day 2018 Oct 04, 2019 Active 1 tablet BD Pen Needle Lara U/F [facility] 73601508861 32G X 4 MM Active USE DIRECTED 4 TIMES DAILY FOR LANTUS AND HUMALOG INSULIN Simvastatin [facility] 34214590248 40 mg Active TAKE 2 TABLETS BY MOUTH EVERY EVENING Aspirin [facility] 37348031981 81 MG Orally Once a day Active 1 tablet OneTouch Lancets [facility] 11908759972 - SQ three times a day DX: E11.65 March 05, 2017 Active as directed Vital Signs Date/Time: April 07, 2019 BMI 28.06 Index Weight 190 lbs Height 69 in Cardiac Monitoring Heart Rate 76 /min Blood Pressure Diastolic 64 mm Hg Blood Pressure Systolic 116 mm Hg Results No Known Results Summary Purpose eClinicalWorks Submission
--- OUTSIDE RECORDS SUMMARY | 2019-04-25 12:04 | XMS REPORT ---
Author Author Juan Snyder [facility] eClinicalWorks Address Unknown Phone Unavailable Care Team Providers Care Co Founder And Ceo Name Role Phone Juan Snyder Unavailable Encounters Encounter Location Date Refill Request [facility] Nov 04, 2013 Unknown [facility] January 21, 2014 Unknown [facility] January 26, 2014 Unknown [facility] May 03, 2014 W[facility]ST [facility] Jul 23, 2013 Test results [facility] Jul 28, 2013 ECHO/GHEB [facility] Sep 22, 2013 Unknown [facility] May 10, 2014 follow up from ER [facility] April 26, 2014 Follow-Up [facility] March 11, 2014 TEST INJ [facility] Aug 27, 2013 BW [facility] Aug 12, 2013 FOLLOW-UP [facility] Sep 21, 2013 Follow-Up [facility] Oct 06, 2013 fbw/ inj [facility] Nov 12, 2013 RESULTS/TEST INJ [facility] Dec 01, 2013 Problems Problem Type Condition ICD-9 Code Onset Dates Condition Status Problem Hypogonadism (Other testicular hypofunction) 257.2 Active Problem SOB (shortness of breath) 786.05 Active Problem HTN (hypertension) 401.9 Active Problem TIA (transient ischemic attack) 435.9 Active Problem Polyneuropathy in diabetes 357.2 Active Problem GERD (Esophageal reflux) 530.81 Active Problem Hyperlipidemia 272.4 Active Problem Diabetes mellitus without mention of complication, type II or unspecified type, uncontrolled 250.02 Active Social History Social History Element Qualifiers Date Reported Tobacco Use: . Are you a: never smoker April 26, 2014 Marital Status: . April 26, 2014 Do you drink alcohol? . 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
--- OUTSIDE RECORDS SUMMARY | 2019-04-25 12:04 | XMS REPORT ---
Author Author Juan Snyder Organization eClinicalWorks Address Unknown Phone Unavailable Care Team Providers Care Director Of Vendor Management Name Role Phone uJan Snyder Unavailable Encounters Encounter Location Date Refill Request [facility] Nov 04, 2013 Unknown [facility] January 21, 2014 W[facility] Jul 23, 2013 Test results [facility] Jul 28, 2013 ECHO/GHEB [facility] Sep [...] Start Date End Date Status Dosage Simvastatin [facility] [address]-71 80 MG Orally Once a day Active 1 tablet in the evening Social History Social History Element Qualifiers Date Reported Tobacco Use: . Are you a: never smoker Dec 01, 2013 Marital Status: . Dec 01, 2013 Do you drink alcohol? . 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
--- OUTSIDE RECORDS SUMMARY | 2019-04-25 12:04 | XMS REPORT ---
Author Author Juan Snyder [facility] eClinicalWorks Address Unknown Phone Unavailable Care Team Providers Care Mushroom Spawn Maker Name Role Phone Juan Snyder Unavailable Encounters Encounter Location Date Refill Request [facility] Nov 04, [address] [facility] January 21, [address] [facility] January 26, [address] [facility] May 03, [address] [facility] Jul 23, [address] [facility] Jul 28, 2013 ECHO/GHEB [facility] Sep 22, [address] [facility] May 10, 2014 follow up from ER [facility] April 26, 2014 Follow-Up [facility] March 11, [address] [facility] Aug 27, [address] [facility] Aug 12, 2013 FOLLOW-UP [facility] Sep 21, 2013 Follow-Up [facility] Oct 06, 2013 fbw/ inj [facility] Nov 12, 2013 RESULTS/TEST INJ [facility] Dec 01, 2013 Problems Problem Type Condition ICD-9 Code Onset Dates Condition Status Problem Polyneuropathy in diabetes 357.2 Active Problem GERD (Esophageal reflux) 530.81 Active Problem Diabetes mellitus without mention of complication, type II or unspecified type, uncontrolled 250.02 Active Problem Hypogonadism (Other testicular hypofunction) 257.2 Active Assessment Hypogonadism (Other testicular hypofunction) 257.2 Active Medications Medication Code System Code Instructions Start Date End Date Status Dosage [facility] [address]-42 5 MG Orally Once a day Active 1 tablet Trilipix [facility] [address]-63 135 MG Orally Once a day Active 1 capsule Simvastatin [facility] [address]-83 80 MG Orally Once a day Active 1 tablet in the evening Pen [place] 12/27" [facility] [address]60 31G X 5 MM (12/27") in vitro use QID DX: 250.03 May 25, 2013 Active as directed Levemir Flexpen [facility] [address]-46 100 UNIT/ML Subcutaneous as directed December 31, 2012 Active 52-56 units Aspir-81 [facility] [address]-93 81 MG Orally Once a day Active 1 tablet Testosterone Cypionate [facility] [address]-19 200 MG/ML intramuscularly every 2 weeks Active INJECT 1 ML INTRAMUSCULARLY EVERY 2 WEEKS NovoLog Flexpen [facility] [address]-95 100 UNIT/ML Subcutaneous three times a day (tid) Active 26 units Social History Social History Element Qualifiers Date Reported Tobacco Use: . Are you a: never smoker April 26, 2014 Marital Status: . April 26, 2014 Do you drink alcohol? . 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
--- OUTSIDE RECORDS SUMMARY | 2019-04-25 12:04 | XMS REPORT ---
Author Author Juan Snyder [facility] eClinicalWorks Address Unknown Phone Unavailable Care Team Providers Care Screw Machine Operator Name Role Phone Juan Snyder Unavailable Encounters Encounter Location Date Refill Request [facility] Nov 04, 2013 Unknown [facility] January 21, 2014 Unknown [facility] January 26, 2014 Unknown [facility] May 03, 2014 WRIST [facility] Jul 23, 2013 Test results [facility] Jul 28, 2013 ECHO/GHEB [facility] Sep 22, 2013 Unknown [facility] May 10, 2014 follow up from ER [facility] April 26, 2014 Follow-Up [facility] March 11, 2014 TEST INJ [facility] Aug 27, 2013 BW [facility] Aug 12, 2013 FOLLOW-UP [facility] Sep 21, 2013 Follow-Up [facility] Oct 06, 2013 fbw/ inj [facility] Nov 12, 2013 RESULTS/TEST INJ [facility] Dec 01, 2013 Problems Problem Type Condition ICD-9 Code Onset Dates Condition Status Assessment Vitamin d deficiency 268.9 Active Problem Polyneuropathy in diabetes 357.2 Active Problem GERD (Esophageal reflux) 530.81 Active Problem Diabetes mellitus without mention of complication, type II or unspecified type, uncontrolled 250.02 Active Assessment Hypogonadism (Other testicular hypofunction) 257.2 Active Assessment Diabetes mellitus without mention of complication, type II or unspecified type, uncontrolled 250.02 Active Problem Hypogonadism (Other testicular hypofunction) 257.2 Active Assessment Hyperlipemia 272.4 Active Social History Social History Element Qualifiers Date Reported Tobacco Use: . Are you a: never smoker April 26, 2014 Marital Status: . April 26, 2014 Do you drink alcohol? . 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
--- OUTSIDE RECORDS SUMMARY | 2019-04-25 12:04 | XMS REPORT ---
Author Author Juan Snyder [facility] eClinicalWorks Address Unknown Phone Unavailable Care Team Providers Care Wood Room Hand Name Role Phone Juan Snyder Unavailable Allergies, Adverse Reactions, Alerts Substance Reaction Event Type Tricor Info Not Available Drug Allergy Lipitor Info Not Available Drug Allergy Codeine Phosphate nausea Drug Allergy Encounters Encounter Location Date Refill Request [facility] Nov 04, 2013 Unknown [facility] January 21, 2014 Unknown [facility] January 26, 2014 Unknown [facility] May 03, 2014 WRIST [facility] Jul 23, 2013 Test results [facility] Jul 28, 2013 ECHO/GHEB [facility] Sep 22, 2013 Unknown [facility] May 10, 2014 follow up from ER [facility] April 26, 2014 Follow-Up [facility] March 11, 2014 TEST INJ [facility] Aug 27, 2013 BW [facility] Aug 12, 2013 FOLLOW-UP [facility] Sep 21, 2013 Follow-Up [facility] Oct 06, 2013 fbw/ inj [facility] Nov 12, 2013 RESULTS/TEST INJ [facility] Dec 01, 2013 Problems Problem Type Condition ICD-9 Code Onset Dates Condition Status Assessment Hypogonadism (Other testicular hypofunction) 257.2 Active Assessment Diabetes mellitus without mention of complication, type II or unspecified type, uncontrolled 250.02 Active Problem HTN (hypertension) 401.9 Active Problem [...] Start Date End Date Status Dosage Pen [place] 3/16" [facility] [address]8932-75727 31G X 5 MM (12/27") in vitro use QID DX: 250.03 May 25, 2013 Active as directed Actos [facility] [address]-22 30 mg Orally Once a day Sep 21, 2013 Active 1 tablet Vitamin E [facility] [address]-85 400 UNIT Orally Once a day Active 1 capsule Zofran [facility] [address]-01 24 MG Orally Active as directed Trilipix [facility] [address]-12 135 MG Orally Once a day Active 1 capsule Testosterone Cypionate [facility] [address]-77 200 MG/ML intramuscularly every 2 weeks Active INJECT 1 ML INTRAMUSCULARLY EVERY 2 WEEKS NovoLog Flexpen [facility] [address]-00 100 UNIT/ML Subcutaneous three times a day (tid) Active 26 units Vitamin D [facility] 66903-32446 400 UNIT Orally Active as directed Aspir-81 [facility] [address]-22 81 MG Orally Once a day Active 1 tablet Lisinopril [facility] [address]-92 5 MG Orally Once a day Active 1 tablet Simvastatin [facility] [address]-30 80 MG Orally Once a day Active 1 tablet in the evening Levemir Flexpen [facility] [address]-81 100 UNIT/ML Subcutaneous Q am December 31, 2012 Active 56 units Social History Social History Element Qualifiers Date Reported Tobacco Use: . Are you a: never smoker April 26, 2014 Marital Status: . April 26, 2014 Do you drink alcohol? . 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
--- OUTSIDE RECORDS SUMMARY | 2019-04-25 12:04 | XMS REPORT ---
Author Author Juan Snyder Organization eClinicalWorks Address Unknown Phone Unavailable Care Team Providers Care Cook Helper Name Role Phone Juan Snyder Unavailable Encounters Encounter Location Date Refill Request [facility] Nov 04, 2013 Unknown [facility] January 21, 2014 Unknown [facility] January 26, 2014 WRIST [facility] Jul 23, 2013 Test results [facility] Jul 28, 2013 ECHO/GHEB [facility] Sep 22, [...] Instructions Start Date End Date Status Dosage Testosterone Cypionate [facility] [address]-13 200 MG/ML intramuscularly every 2 weeks Active 1 ml Social History Social History Element Qualifiers Date [...]
--- OUTSIDE RECORDS SUMMARY | 2019-04-25 12:05 | XMS REPORT ---
Author Author Juan Snyder [facility] eClinicalWorks Address Unknown Phone Unavailable Care Team Providers Care Senior Partner Name Role Phone Juan Snyder Unavailable Encounters Encounter Location Date Refill Request [facility] Nov 04, 2013 Unknown [facility] January 21, 2014 Unknown [facility] January 26, 2014 Unknown [facility] May 03, 2014 WRIST [facility] Jul 23, 2013 Test results [facility] Jul 28, 2013 ECHO/GHEB [facility] Sep 22, 2013 Unknown [facility] May 10, 2014 follow up from ER [facility] April 26, 2014 Follow-Up [facility] March 11, 2014 TEST INJ [facility] Aug 27, 2013 BW [facility] Aug 12, 2013 FOLLOW-UP [facility] Sep 21, 2013 Follow-Up [facility] Oct 06, 2013 fbw/ inj [facility] Nov 12, 2013 RESULTS/TEST INJ [facility] Dec [...]
--- OUTSIDE RECORDS SUMMARY | 2019-04-25 12:05 | XMS REPORT ---
Author Author Juan Snyder [facility] eClinicalWorks Address Unknown Phone Unavailable Care Team Providers Care Lobby Attendant Name Role Phone Juan Snyder Unavailable Allergies, Adverse Reactions, Alerts Substance Reaction Event Type Tricor Info Not Available Drug Allergy Lipitor Info Not Available Drug Allergy Codeine Phosphate nausea Drug Allergy Encounters Encounter Location Date Refill Request [facility] Nov 04, 2013 Unknown [facility] January 21, 2014 Unknown [facility] January 26, 2014 Unknown [facility] May 03, 2014 WRIST [facility] Jul 23, 2013 Test results [facility] Jul 28, 2013 ECHO/GHEB [facility] Sep 22, 2013 Unknown [facility] May 10, 2014 follow up from ER [facility] April 26, 2014 Follow-Up [facility] March 11, 2014 TEST INJ [facility] Aug 27, 2013 BW [facility] Aug 12, 2013 FOLLOW-UP [facility] Sep 21, 2013 Follow-Up [facility] Oct 06, 2013 fbw/ inj [facility] Nov 12, 2013 RESULTS/TEST INJ [facility] Dec 01, 2013 Problems Problem Type Condition ICD-9 Code Onset Dates Condition Status Assessment Hyperlipidemia 272.4 Active Assessment Hypogonadism (Other testicular hypofunction) 257.2 Active Assessment HTN (hypertension) 401.9 Active Assessment Neck pain on right side 723.1 Active Assessment SOB (shortness of breath) 786.05 Active Problem Hyperlipidemia 272.4 Active Problem Diabetes mellitus without mention of complication, type II or unspecified type, uncontrolled 250.02 Active Problem HTN (hypertension) 401.9 Active Problem Hypogonadism (Other testicular hypofunction) 257.2 Active Assessment Diabetes mellitus without mention of complication, type II or unspecified type, uncontrolled 250.02 Active Problem Polyneuropathy in diabetes 357.2 Active Problem GERD (Esophageal reflux) 530.81 Active Medications Medication Code System Code Instructions Start Date End Date Status Dosage Testosterone Cypionate [facility] [address]-83 200 MG/ML intramuscularly every 2 weeks Active INJECT 1 ML INTRAMUSCULARLY EVERY 2 WEEKS Actos [facility] [address]-10 30 mg Orally Once a day Sep 21, 2013 Active 1 tablet Trilipix [facility] [address]-94 135 MG Orally Once a day Active 1 capsule NovoLog Flexpen [facility] [address]-98 100 UNIT/ML Subcutaneous three times a day (tid) Active 26 units Pen [place] 12/27" [facility] [address] 31G X 5 MM (12/27") in vitro use QID DX: 250.03 May 25, 2013 Active as directed [facility] [address]-80 81 MG Orally Once a day Active 1 tablet Levemir Flexpen [facility] [address]-22 100 UNIT/ML Subcutaneous as directed December 31, 2012 Active 52-56 units Lisinopril [facility] [address]-98 5 MG Orally Once a day Active 1 tablet Simvastatin [facility] [address]-08 80 MG Orally Once a day Active 1 tablet in the evening Social History Social History Element Qualifiers Date Reported Tobacco Use: . Are you a: never smoker April 26, 2014 Marital Status: . April 26, 2014 Do you drink alcohol? . 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
--- OUTSIDE RECORDS SUMMARY | 2019-04-25 12:05 | XMS REPORT ---
Author Author Juan Snyder eClinicalWorks Address Unknown Phone Unavailable Care Team Providers Care Customer Relations Assistant Name Role Phone Juan Snyder CP Unavailable Encounters Encounter Location Date Refill Request [facility] Nov 04, 2013 Unknown [facility] January 21, 2014 Unknown [facility] January 26, 2014 Unknown [facility] May 03, 2014 WRIST [facility] Jul 23, 2013 Test results [facility] Jul 28, 2013 ECHO/GHEB [facility] Sep 22, 2013 Unknown [facility] May 10, 2014 follow up from ER [facility] April 26, 2014 Follow-Up [facility] March 11, 2014 TEST INJ [facility] Aug 27, 2013 BW [facility] Aug 12, 2013 FOLLOW-UP [facility] Sep 21, 2013 Follow-Up [facility] Oct 06, 2013 fbw/ inj [facility] Nov 12, 2013 RESULTS/TEST INJ [facility] Dec 01, 2013 Problems Problem Type Condition ICD-9 Code Onset Dates Condition Status Assessment Hyperlipidemia 272.4 Active Assessment Diabetes mellitus without mention of complication, type II or unspecified type, uncontrolled 250.02 Active Assessment Hypogonadism (Other testicular hypofunction) 257.2 Active Assessment HTN (hypertension) 401.9 Active Problem HTN (hypertension) 401.9 Active Problem [...] Start Date End Date Status Dosage Lisinopril [facility] [address]-87 5 MG Orally Once a day Active 1 tablet Testosterone Cypionate [facility] [address]-84 200 MG/ML intramuscularly every 2 weeks Active INJECT 1 ML INTRAMUSCULARLY EVERY 2 WEEKS NovoLog Flexpen [facility] [address]-64 100 UNIT/ML Subcutaneous three times a day (tid) Active 26 units Simvastatin [facility] [address]-08 80 MG Orally Once a day Active 1 tablet in the evening Trilipix [facility] [address]-55 135 MG Orally Once a day Active 1 capsule Actos [facility] [address]-47 30 mg Orally Once a day Sep 21, 2013 Active 1 tablet Aspir-81 [facility] [address]-08 81 MG Orally Once a day Active 1 tablet Pen [place] 12/27" [facility] 06[address]504 31G X 5 MM (12/27") in vitro use QID DX: 250.03 May 25, 2013 Active as directed Levemir Flexpen [facility] [address]-89 100 UNIT/ML Subcutaneous Q am December 31, 2012 Active 56 units Social History Social History Element Qualifiers Date Reported Tobacco Use: . Are you a: never smoker April 26, 2014 Marital Status: . April 26, 2014 Do you drink alcohol? . 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 Metabolic Panel (14) Testosterone, Serum Hgb A1c with eAG Estimation CBC With Differential/Platelet PSA Total+ Free Summary Purpose eClinicalWorks Submission
--- OUTSIDE RECORDS SUMMARY | 2019-04-25 12:05 | XMS REPORT ---
Author Author Juan Snyder [facility] eClinicalWorks Address Unknown Phone Unavailable Care Team Providers Care Strike Planning Applications Name Role Phone Juan Snyder CP Unavailable Allergies, Adverse Reactions, Alerts Substance Reaction Event Type Tricor Info Not Available Drug Allergy Lipitor Info Not Available Drug Allergy Codeine Phosphate nausea Drug Allergy Encounters Encounter Location Date Refill Request [facility] Nov 04, 2013 Unknown [facility] January 21, [address] [facility] January 26, [address] [facility] May 03, 2014 WRIST [facility] Jul 23, 2013 Test results [facility] Jul 28, 2013 ECHO/GHEB [facility] Sep 22, 2013 Unknown [facility] May 10, 2014 follow up from ER [facility] April 26, 2014 Follow-Up [facility] March 11, 2014 TEST INJ [facility] Aug 27, 2013 BW [facility] Aug 12, 2013 FOLLOW-UP [facility] Sep 21, 2013 Follow-Up [facility] Oct 06, 2013 fbw/ inj [facility] Nov 12, 2013 RESULTS/TEST INJ [facility] Dec 01, 2013 Problems Problem Type Condition ICD-9 Code Onset Dates Condition Status Problem Hypogonadism (Other testicular hypofunction) 257.2 Active Assessment TIA (transient ischemic attack) 435.9 Active Problem SOB (shortness of breath) 786.05 Active Problem HTN (hypertension) 401.9 Active Problem TIA (transient ischemic attack) 435.9 Active Problem Polyneuropathy in diabetes 357.2 Active Problem GERD (Esophageal reflux) 530.81 Active Problem Hyperlipidemia 272.4 Active Problem Diabetes mellitus without mention of complication, type II or unspecified type, uncontrolled 250.02 Active Medications Medication Code System Code Instructions Start Date End Date Status Dosage BD U[facility] 8518[facility]471 31G X 5 MM Active USE DIRECTED FOUR TIMES DAILY Vitamin D [facility] 63237-04052 400 UNIT Orally Active as directed Simvastatin [facility] [address]-60 80 MG Orally Once a day Active 1 tablet in the evening Vitamin E [facility] [address]-95 400 UNIT Orally Once a day Active 1 capsule NovoLog Flexpen [facility] 47508236666 100 UNIT/ML Active INJECT 26 UNITS SUBCUTANEOUSLY THREE TIMES DAILY Actos [facility] [address]-24 30 mg Orally Once a day Sep 21, 2013 Active 1 tablet Aspirin [facility] [address]-99 325 MG Orally Once a day Active 1 tablet Lisinopril [facility] [address]-30 5 MG Orally Once a day Active 1 tablet Trilipix [facility] [address]-85 135 MG Orally Once a day Active 1 capsule Pen [place] 12/27" [facility] 19971-67293 31G X 5 MM (12/27 in vitro use QID DX: 250.03 May 25, 2013 Active as directed Plavix [facility] [address]-93 75 MG Orally Once a day Active 1 tablet Testosterone Cypionate [facility] [address]-29 200 MG/ML intramuscularly every 2 weeks Active 1 ml Levemir Flexpen [facility] [address]-41 100 UNIT/ML Subcutaneous Q am December 31, 2012 Active 58 units Social History Social History Element Qualifiers Date Reported Tobacco Use: . Are you a: never smoker April 26, 2014 Marital Status: . April 26, 2014 Do you drink alcohol? . 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
--- OUTSIDE RECORDS SUMMARY | 2019-04-25 12:05 | XMS REPORT ---
Author Author Juan Snyder [facility] eClinicalWorks Address Unknown Phone Unavailable Care Team Providers Care Punchboard Assembler Name Role Phone Juan Snyder Unavailable Allergies, Adverse Reactions, Alerts Substance Reaction Event Type Tricor Info Not Available Drug Allergy Lipitor Info Not Available Drug Allergy Codeine Phosphate nausea Drug Allergy Encounters Encounter Location Date Refill Request [facility] Nov 04, 2013 Unknown [facility] January 21, 2014 Unknown [facility] January 26, 2014 Unknown [facility] May 03, 2014 WRIST [facility] Jul 23, 2013 Test results [facility] Jul 28, 2013 ECHO/GHEB [facility] Sep 22, 2013 Unknown [facility] May 10, 2014 follow up from ER [facility] April 26, 2014 Follow-Up [facility] March 11, 2014 TEST INJ [facility] Aug 27, 2013 BW [facility] Aug 12, 2013 FOLLOW-UP [facility] Sep 21, 2013 Follow-Up [facility] Oct 06, 2013 fbw/ inj [facility] Nov 12, 2013 RESULTS/TEST INJ [facility] Dec 01, 2013 Problems Problem Type Condition ICD-9 Code Onset Dates Condition Status Assessment Hypogonadism (Other testicular hypofunction) 257.2 Active Assessment Diabetes mellitus without mention of complication, type II or unspecified type, uncontrolled 250.02 Active Assessment Polyneuropathy in diabetes 357.2 Active Assessment HTN (hypertension) 401.9 Active Assessment Hyperlipidemia 272.4 Active Problem HTN (hypertension) 401.9 Active Problem Hyperlipidemia 272.4 Active Problem SOB (shortness of breath) 786.05 Active Problem GERD (Esophageal reflux) 530.81 Active Problem Hypogonadism (Other testicular hypofunction) 257.2 Active Problem Diabetes mellitus without mention of complication, type II or unspecified type, uncontrolled 250.02 Active Problem Polyneuropathy in diabetes 357.2 Active Medications Medication Code System Code Instructions Start Date End Date Status Dosage Vitamin D [facility] [address]77[address] 400 UNIT Orally Active as directed Vitamin E [facility] [address]-85 400 UNIT Orally Once a day Active 1 capsule Actos [facility] [address]-67 30 mg Orally Once a day Sep 21, 2013 Active 1 tablet Lisinopril [facility] [address]-14 5 MG Orally Once a day Active 1 tablet [place] 12/27" [facility] [address]36[address] 31G X 5 MM (12/27 in vitro use QID DX: 250.03 May 25, 2013 Active as directed Testosterone Cypionate [facility] [address]-66 200 MG/ML intramuscularly every 2 weeks Active 1 ml Simvastatin [facility] [address]-62 80 MG Orally Once a day Active 1 tablet in the evening Levemir Flexpen [facility] [address]-66 100 UNIT/ML Subcutaneous Q am December 31, 2012 Active 58 units NovoLog Flexpen [facility] [address]-30 100 UNIT/ML Subcutaneous three times a day (tid) Active 28 units Trilipix [facility] [address]-04 135 MG Orally Once a day Active 1 capsule Aspir-81 [facility] [address]-76 81 MG Orally Once a day Active 1 tablet Zofran [facility] [address]-63 24 MG Orally Active as directed Social History Social History Element Qualifiers Date Reported Tobacco Use: . Are you a: never smoker April 26, 2014 Marital Status: . April 26, 2014 Do you drink alcohol? . 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
--- OUTSIDE RECORDS SUMMARY | 2019-04-25 12:06 | XMS REPORT ---
Author Author Juan Snyder [facility] eClinicalWorks Address Unknown Phone Unavailable Care Team Providers Care Yard Conductor Name Role Phone Juan Snyder Unavailable Encounters Encounter Location Date Refill Request [facility] Nov 04, 2013 Unknown [facility] January 21, 2014 Unknown [facility] January 26, 2014 Unknown [facility] May 03, 2014 WRIST [facility] Jul 23, 2013 Test results [facility] Jul 28, 2013 ECHO/GHEB [facility] Sep 22, 2013 Unknown [facility] May 10, 2014 follow up from ER [facility] April 26, 2014 Follow-Up [facility] March 11, 2014 RESULTS [facility] Jun 10, 2014 NV-BW [facility] Sep 16, 2014 TEST INJ [facility] Aug 27, 2013 BW [facility] Aug 12, 2013 FOLLOW-UP [facility] Sep 21, 2013 Follow-Up [facility] Oct 06, 2013 fbw/ inj [facility] Nov 12, 2013 RESULTS/TEST INJ [facility] Dec 01, 2013 Problems Problem Type Condition ICD-9 Code Onset Dates Condition Status Problem Hypogonadism (Other testicular hypofunction) 257.2 Active Problem Polyneuropathy in diabetes 357.2 Active Problem GERD (Esophageal reflux) 530.81 Active Problem Carotid artery narrowing 433.10 Active Problem Atheromatous plaque 440.9 Active Problem HTN (hypertension), benign 401.1 Active Problem Hyperlipidemia 272.4 Active Problem Diabetes mellitus without mention of complication, type II or unspecified type, uncontrolled 250.02 Active Problem TIA (transient ischemic attack) 435.9 Active Problem SOB (shortness of breath) 786.05 Active Assessment HTN (hypertension), benign 401.1 Active Assessment Hyperlipidemia 272.4 Active Assessment Hypogonadism (Other testicular hypofunction) 257.2 Active Assessment Diabetes mellitus without mention of complication, type II or unspecified type, uncontrolled 250.02 Active Medications Medication Code System Code Instructions Start Date End Date Status Dosage Aspirin [facility] [address]-95 325 MG Orally Once a day Active 1 tablet Simvastatin [facility] 74230426492 80 MG Active TAKE 1 TABLET BY MOUTH IN THE EVENING ONE TIME DAILY Lisinopril [facility] 43850458530 5 MG Active TAKE 1 TABLET BY MOUTH DAILY Testosterone Cypionate [facility] [address]-11 200 MG/ML intramuscularly every 2 weeks Active 1 ml Plavix [facility] [address]-92 75 MG Orally Once a day Active 1 tablet Levemir Flexpen [facility] 68383640954 100 UNIT/ML Active INJECT 56 UNITS SUBCUTANEOUSLY EVERY MORNING Actos [facility] [address]-25 30 mg Orally Once a day Sep 21, 2013 Active 1 tablet Trilipix [facility] 09865951608 135 MG Active TAKE 1 CAPSULE BY MOUTH DAILY Vitamin D [facility] 99793-[address]20 400 UNIT Orally Active as directed [place] 3/16" [facility] 61326-[address] 31G X 5 MM (3/16 in vitro use QID DX: 250.03 May 25, 2013 Active as directed Aciphex [facility] [address]-08 20 mg Orally Once a day Jun 10, 2014 Active 1 tablet BD U/F Mini Pen Needle [facility] 59669711208 31G X 5 MM Active USE DIRECTED FOUR TIMES DAILY NovoLog Flexpen [facility] [address]-58 100 UNIT/ML Active INJECT 20- 22 UNITS SUBCUTANEOUSLY THREE TIMES DAILY Vitamin E [facility] [address]-80 400 UNIT Orally Once a day Active 1 capsule Social History Social History Element Qualifiers Date Reported Tobacco Use: . Are you a: never smoker Jun 10, 2014 Marital Status: . Jun 10, 2014 Do you drink alcohol? . 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
--- OUTSIDE RECORDS SUMMARY | 2019-04-25 12:06 | XMS REPORT ---
Author Author Juan Snyder [facility] eClinicalWorks Address Unknown Phone Unavailable Care Team Providers Care Music Writer Name Role Phone Juan Snyder Unavailable Allergies, Adverse Reactions, Alerts Substance Reaction Event Type Tricor Info Not Available Drug Allergy Lipitor Info Not Available Drug Allergy Codeine Phosphate nausea Drug Allergy Encounters Encounter Location Date Refill Request [facility] Nov 04, 2013 Unknown [facility] January 21, 2014 Unknown [facility] January 26, 2014 Unknown [facility] May 03, 2014 WRIST [facility] Jul 23, 2013 Test results [facility] Jul 28, 2013 ECHO/GHEB [facility] Sep 22, 2013 Unknown [facility] May 10, 2014 follow up from ER [facility] April 26, 2014 Follow-Up [facility] March 11, 2014 RESULTS [facility] Jun 10, 2014 NV-BW [facility] Sep 16, 2014 TEST INJ [facility] Aug 27, 2013 BW [facility] Aug 12, 2013 FOLLOW-UP [facility] Sep 21, 2013 Follow-Up [facility] Oct 06, 2013 fbw/ inj [facility] Nov 12, 2013 RESULTS/TEST INJ [facility] Dec 01, 2013 LAB RESULTS [facility] Sep 30, 2014 Problems Problem Type Condition ICD-9 Code Onset Dates Condition Status Problem Polyneuropathy in diabetes 357.2 Active Problem Hyperlipidemia 272.4 Active Problem Diabetes mellitus without mention of complication, type II or unspecified type, uncontrolled 250.02 Active Problem Overweight 278.02 Active Assessment Overweight 278.02 Active Problem HTN (hypertension), benign 401.1 Active Assessment Other follow-up examination V67.59 Active Assessment Encounter to discuss test results V65.49 Active Problem BMI 26.0-26.9,adult V85.22 Active Problem TIA (transient ischemic attack) 435.9 Active Problem SOB (shortness of breath) 786.05 Active Problem Carotid artery narrowing 433.10 Active Problem Atheromatous plaque 440.9 Active Assessment TIA (transient ischemic attack) 435.9 Active Assessment HTN (hypertension), benign 401.1 Active Assessment BMI 26.0-26.9,adult V85.22 Active Assessment Carotid artery narrowing 433.10 Active Assessment GERD (Esophageal reflux) 530.81 Active Assessment Diabetes mellitus without mention of complication, type II or unspecified type, uncontrolled 250.02 Active Assessment Hyperlipidemia 272.4 Active Problem Hypogonadism (Other testicular hypofunction) 257.2 Active Assessment Hypogonadism (Other testicular hypofunction) 257.2 Active Problem GERD (Esophageal reflux) 530.81 Active Medications Medication Code System Code Instructions Start Date End Date Status Dosage Pen [place] 12/27" [facility] [address] 31G X 5 MM (12/27 in vitro use QID DX: 250.03 May 25, 2013 Active as directed Lisinopril [facility] 63024925528 5 MG Active TAKE 1 TABLET BY MOUTH DAILY Vitamin E [facility] [address]-01 400 UNIT Orally Once a day Active 1 capsule Actos [facility] [address]-90 30 mg Orally Once a day Sep 21, 2013 Active 1 tablet Vitamin D [facility] 41742-38475 400 UNIT Orally Active as directed NovoLog Flexpen [facility] [address]-24 100 UNIT/ML Active INJECT 20- 22 UNITS SUBCUTANEOUSLY THREE TIMES DAILY Aspirin [facility] [address]-44 325 MG Orally Once a day Active 1 tablet Simvastatin [facility] 75031929280 80 MG Active TAKE 1 TABLET BY MOUTH IN THE EVENING ONE TIME DAILY Aciphex [facility] [address]-56 20 mg Orally Once a day Jun 10, 2014 Active 1 tablet Testosterone Cypionate [facility] [address]-52 200 MG/ML intramuscularly every 2 weeks Active 1 ml Levemir Flexpen [facility] 87686912791 100 UNIT/ML Active INJECT 56 UNITS SUBCUTANEOUSLY EVERY MORNING Plavix [facility] [address]-16 75 MG Orally Once a day Active 1 tablet BD U/F Mini Pen Needle [facility] 91538759926 31G X 5 MM Active USE DIRECTED FOUR TIMES DAILY Trilipix [facility] 25050190419 135 MG Active TAKE 1 CAPSULE BY MOUTH DAILY Sanderokamanuel [facility] [address]-54 100 mg Orally Once a day Sep 30, 2014 March 29, 2015 Active 1 tablet Social History Social History Element Qualifiers Date Reported Tobacco Use: . Are you a: never smoker Sep 30, 2014 Marital Status: . Sep 30, 2014 Do you drink alcohol? . 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
--- OUTSIDE RECORDS SUMMARY | 2019-04-25 12:06 | XMS REPORT ---
Author Author Juan Snyder [facility] eClinicalWorks Address Unknown Phone Unavailable Care Team Providers Care Waterproof Bag Cutting Machine Operator Name Role Phone Juan Snyder Unavailable Allergies, Adverse Reactions, Alerts Substance Reaction Event Type Tricor Info Not Available Drug Allergy Lipitor Info Not Available Drug Allergy Codeine Phosphate nausea Drug Allergy Encounters Encounter Location Date Refill Request [facility] Nov 04, 2013 Unknown [facility] January 21, 2014 Unknown [facility] January 26, 2014 Unknown [facility] May 03, 2014 WRIST [facility] Jul 23, 2013 Test results [facility] Jul 28, 2013 ECHO/GHEB [facility] Sep 22, 2013 Unknown [facility] May 10, 2014 follow up from ER [facility] April 26, 2014 Follow-Up [facility] March 11, 2014 TEST INJ [facility] Aug 27, 2013 BW [facility] Aug 12, 2013 FOLLOW-UP [facility] Sep 21, 2013 Follow-Up [facility] Oct 06, 2013 fbw/ inj [facility] Nov 12, 2013 RESULTS/TEST INJ [facility] Dec 01, 2013 Problems Problem Type Condition ICD-9 Code Onset Dates Condition Status Assessment Hyperlipidemia 272.4 Active Assessment Diabetes mellitus without mention of complication, type II or unspecified type, uncontrolled 250.02 Active Assessment Hypogonadism (Other testicular hypofunction) 257.2 Active Assessment SOB (shortness of breath) 786.05 Active Assessment HTN (hypertension) 401.9 Active Problem [...] Start Date End Date Status Dosage Simvastatin [facility] [address]-28 80 MG Orally Once a day Active 1 tablet in the evening Testosterone Cypionate [facility] [address]-19 200 MG/ML intramuscularly every 2 weeks Active INJECT 1 ML INTRAMUSCULARLY EVERY 2 WEEKS Aspir-81 [facility] [address]-84 81 MG Orally Once a day Active 1 tablet [employer] 12/27" [facility] [address]53-[address]18 31G X 5 MM (12/27") in vitro use QID DX: 250.03 May 25, 2013 Active as directed Lisinopril [facility] [address]-25 5 MG Orally Once a day Active 1 tablet NovoLog Flexpen [facility] [address]-29 100 UNIT/ML Subcutaneous three times a day (tid) Active 26 units Actos [facility] [address]-78 30 mg Orally Once a day Sep 21, 2013 Active 1 tablet Levemir Flexpen [facility] [address]-01 100 UNIT/ML Subcutaneous Q am December 31, 2012 Active 56 units Trilipix [facility] [address]-81 135 MG Orally Once a day Active 1 capsule Social History Social History Element Qualifiers Date Reported Tobacco Use: . Are you a: never smoker April 26, 2014 Marital Status: . April 26, 2014 Do you drink alcohol? . 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
--- OUTSIDE RECORDS SUMMARY | 2019-04-25 12:06 | XMS REPORT ---
Author Author Juan Snyder [facility] eClinicalWorks Address Unknown Phone Unavailable Care Team Providers Care Tower Director Name Role Phone Juan Snyder CP Unavailable Allergies, Adverse Reactions, Alerts Substance Reaction Event Type Tricor Info Not Available Drug Allergy Lipitor Info Not Available Drug Allergy Codeine Phosphate nausea Drug Allergy Encounters Encounter Location Date Refill Request [facility] Nov 04, 2013 Unknown [facility] January 21, 2014 Unknown [facility] January 26, 2014 Unknown [facility] May 03, 2014 WRIST [facility] Jul 23, 2013 Test results [facility] Jul 28, 2013 ECHO/GHEB [facility] Sep 22, 2013 Unknown [facility] May 10, 2014 follow up from ER [facility] April 26, 2014 Follow-Up [facility] March 11, 2014 RESULTS [facility] Jun 10, 2014 TEST INJ [facility] Aug 27, 2013 BW [facility] Aug 12, 2013 FOLLOW-UP [facility] Sep 21, 2013 Follow-Up [facility] Oct 06, 2013 fbw/ inj [facility] Nov 12, 2013 RESULTS/TEST INJ [facility] Dec 01, 2013 [...] SOB (shortness of breath) 786.05 Active Assessment Belching 787.3 Active Assessment GERD (gastroesophageal reflux disease) 530.81 Active Assessment Gastritis 535.50 Active Assessment Hypogonadism (Other testicular hypofunction) 257.2 Active Assessment Diabetes mellitus without mention of complication, type II or unspecified type, uncontrolled 250.02 Active Assessment Atheromatous plaque 440.9 Active Assessment HTN (hypertension), benign 401.1 Active Assessment Hyperlipidemia 272.4 Active Assessment Carotid artery narrowing 433.10 Active Medications Medication Code System Code Instructions Start Date End Date Status Dosage Simvastatin [facility] [address]-34 80 MG Orally Once a day Active 1 tablet in the evening Vitamin E [facility] [address]-45 400 UNIT Orally Once a day Active 1 capsule NovoLog Flexpen [facility] [address]-87 100 UNIT/ML Active INJECT 20- 22 UNITS SUBCUTANEOUSLY THREE TIMES DAILY Testosterone Cypionate [facility] [address]-62 200 MG/ML intramuscularly every 2 weeks Active 1 ml Trilipix [facility] 08556256665 135 MG Active TAKE 1 CAPSULE BY MOUTH DAILY Levemir Flexpen [facility] [address]-98 100 UNIT/ML Subcutaneous Q am December 31, 2012 Active 54 units Lisinopril [facility] 49610434439 5 MG Active TAKE 1 TABLET BY MOUTH DAILY Aspirin [facility] [address]-48 325 MG Orally Once a day Active 1 tablet Vitamin D [facility] 45634-99571 400 UNIT Orally Active as directed Plavix [facility] [address]-71 75 MG Orally Once a day Active 1 tablet Pen [place] 3/16" [facility] [address]80[address]28 31G X 5 MM (12/27 in vitro use QID DX: 250.03 May 25, 2013 Active as directed Actos [facility] [address]-19 30 mg Orally Once a day Sep 21, 2013 Active 1 tablet Aciphex [facility] [address]-00 20 mg Orally Once a day Jun 10, 2014 Active 1 tablet BD U/F Mini Pen Needle [facility] 15224554352 31G X 5 MM Active USE DIRECTED FOUR TIMES DAILY Social History Social History Element Qualifiers Date Reported Tobacco Use: . Are you a: never smoker Jun 10, 2014 Marital Status: . Jun 10, 2014 Do you drink alcohol? . 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
--- OUTSIDE RECORDS SUMMARY | 2019-04-25 12:07 | XMS REPORT ---
Author Author Juan Snyder [facility] eClinicalWorks Address Unknown Phone Unavailable Care Team Providers Care Mining Machinery Assembler Name Role Phone Juan Snyder Unavailable Allergies, Adverse Reactions, Alerts Substance Reaction Event Type Tricor Info Not Available Drug Allergy Lipitor Info Not Available Drug Allergy Codeine Phosphate nausea Drug Allergy Encounters Encounter Location Date Refill Request [facility] Nov 04, 2013 Unknown [facility] January 21, 2014 Unknown [facility] January 26, 2014 Unknown [facility] May 03, 2014 WRIST [facility] Jul 23, 2013 Test results [facility] Jul 28, 2013 ECHO/GHEB [facility] Sep 22, 2013 Unknown [facility] May 10, 2014 Unknown [facility] January 31, 2015 NV-BW [facility] January 19, 2015 follow up from ER [facility] April 26, 2014 Follow-Up [facility] March 11, 2014 RESULTS [facility] Jun 10, 2014 NV-BW [facility] Sep 16, 2014 TEST INJ [facility] Aug 27, 2013 BW [facility] Aug 12, 2013 COUGH, CONGESTION AND FLU LIKE SYMPTOMS [facility] January 31, 2015 FOLLOW-UP [facility] Sep 21, 2013 RESULTS [facility] February 07, 2015 Follow-Up [facility] Oct 06, 2013 RIGHT EYE PAIN [facility] February 16, 2015 fbw/ inj [facility] Nov 12, 2013 RESULTS/TEST INJ [facility] Dec 01, 2013 LAB RESULTS [facility] Sep 30, 2014 Problems Problem Type Condition ICD-9 Code Onset Dates Condition Status Problem Polyneuropathy in diabetes 357.2 Active Problem Hyperlipidemia 272.4 Active Problem Diabetes mellitus without mention of complication, type II or unspecified type, uncontrolled 250.02 Active Problem Overweight 278.02 Active Problem HTN (hypertension), benign 401.1 Active Problem BMI 26.0-26.9,adult V85.22 Active Problem TIA (transient ischemic attack) 435.9 Active Problem SOB (shortness of breath) 786.05 Active Problem Carotid artery narrowing 433.10 Active Problem Atheromatous plaque 440.9 Active Assessment Conjunctivitis 372.30 Active Problem Hypogonadism (Other testicular hypofunction) 257.2 Active Problem GERD (Esophageal reflux) 530.81 Active Medications Medication Code System Code Instructions Start Date End Date Status Dosage Aspirin [facility] [address]-84 325 MG Orally Once a day Active 1 tablet Metformin HCl [facility] [address]-64 500 mg Orally Twice a day February 07, 2015 Active 1 tablet with meals Vitamin D [facility] 68909-85875 400 UNIT Orally Active as directed Trilipix [facility] 08114437794 135 MG Active TAKE 1 CAPSULE BY MOUTH DAILY Norel AD [facility] 86901-172-71 4-10-325 MG Orally every 4-6 hours February 07, 2015 Active 1 tablet as needed Plavix [facility] [address]-97 75 MG Orally Once a day Active 1 tablet Simvastatin [facility] 58536096876 80 MG Active TAKE 1 TABLET BY MOUTH IN THE EVENING ONE TIME DAILY Vitamin E [facility] [address]-31 400 UNIT Orally Once a day Active 1 capsule Lisinopril [facility] 65845378783 5 MG Active TAKE 1 TABLET BY MOUTH DAILY Pen [place] 12/27" [facility] 98911-[address]81 31G X 5 MM (12/27 in vitro use QID DX: 250.03 May 25, 2013 Active as directed Levaquin [facility] [address]-29 500 mg Orally Once a day February 07, 2015 February 17, 2015 Active 1 tablet Aciphex [facility] [address]-67 20 mg Orally Once a day Jun 10, 2014 Active 1 tablet NovoLog Flexpen [facility] [address]-75 100 UNIT/ML Active INJECT 20- 22 UNITS SUBCUTANEOUSLY THREE TIMES DAILY BD U/F Mini Pen Needle [facility] 91372877372 31G X 5 MM Active USE DIRECTED FOUR TIMES DAILY Tamiflu [facility] [address]-40 75 mg Orally Twice a day January 31, 2015 Active 1 capsule Levemir Flexpen [facility] 79473064927 100 UNIT/ML Active INJECT 56 UNITS SUBCUTANEOUSLY EVERY MORNING Social History Social History Element Qualifiers Date Reported Tobacco Use: . Are you a: never smoker February 16, 2015 Marital Status: . February 16, 2015 Do you drink alcohol? . 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
--- OUTSIDE RECORDS SUMMARY | 2019-04-25 12:07 | XMS REPORT ---
Author Author Juan Snyder [facility] eClinicalWorks Address Unknown Phone Unavailable Care Team Providers Care Bindery Production Manager Name Role Phone Juan Snyder Unavailable Allergies, Adverse Reactions, Alerts Substance Reaction Event Type Tricor Info Not Available Drug Allergy Lipitor Info Not Available Drug Allergy Codeine Phosphate nausea Drug Allergy Encounters Encounter Location Date Refill Request [facility] Nov 04, 2013 Unknown [facility] January 21, 2014 Unknown [facility] January 26, 2014 Unknown [facility] May 03, 2014 WRIST [facility] Jul 23, 2013 Test results [facility] Jul 28, 2013 ECHO/GHEB [facility] Sep 22, 2013 Unknown [facility] May 10, 2014 Unknown [facility] January 31, 2015 NV-BW [facility] January 19, 2015 follow up from ER [facility] April 26, 2014 Follow-Up [facility] March 11, 2014 RESULTS [facility] Jun 10, 2014 NV-BW [facility] Sep 16, 2014 TEST INJ [facility] Aug 27, 2013 BW [facility] Aug 12, 2013 COUGH, CONGESTION AND FLU LIKE SYMPTOMS [facility] January 31, 2015 FOLLOW-UP [facility] Sep 21, 2013 RESULTS [facility] February 07, 2015 Follow-Up [facility] Oct 06, 2013 fbw/ inj [facility] Nov 12, 2013 RESULTS/TEST INJ [facility] Dec 01, 2013 LAB RESULTS [facility] Sep [...] Active Problem Atheromatous plaque 440.9 Active Assessment Sinusitis 473.9 Active Assessment HTN (hypertension), benign 401.1 Active Assessment Carotid artery narrowing 433.10 Active Assessment URI, acute 465.9 Active Assessment GERD (Esophageal reflux) 530.81 Active Assessment Diabetes mellitus without mention of complication, type II or unspecified type, uncontrolled 250.02 Active Assessment Hyperlipidemia 272.4 Active Problem Hypogonadism (Other testicular hypofunction) 257.2 Active Assessment Hypogonadism (Other testicular hypofunction) 257.2 Active Problem GERD (Esophageal reflux) 530.81 Active Medications Medication Code System Code Instructions Start Date End Date Status Dosage Tamiflu [facility] [address]-36 75 mg Orally Twice a day January 31, 2015 Active 1 capsule Plavix [facility] [address]-92 75 MG Orally Once a day Active 1 tablet BD U/F Mini Pen Needle [facility] 61907355641 31G X 5 MM Active USE DIRECTED FOUR TIMES DAILY Simvastatin [facility] 73081211475 80 MG Active TAKE 1 TABLET BY MOUTH IN THE EVENING ONE TIME DAILY Lisinopril [facility] 08649271601 5 MG Active TAKE 1 TABLET BY MOUTH DAILY Invokana [facility] [address]-98 100 mg Orally Once a day Sep 30, 2014 March 29, 2015 Active 1 tablet NovoLog Flexpen [facility] [address]-14 100 UNIT/ML Active INJECT 20- 22 UNITS SUBCUTANEOUSLY THREE TIMES DAILY Pen [place] 12/27" [facility] 26073-01826 31G X 5 MM (12/27 in vitro use QID DX: 250.03 May 25, 2013 Active as directed Vitamin D [facility] 82949-10948 400 UNIT Orally Active as directed Levemir Flexpen [facility] 87997170708 100 UNIT/ML Active INJECT 56 UNITS SUBCUTANEOUSLY EVERY MORNING Norel AD [facility] 77684-382-99 4-10-325 MG Orally every 4-6 hours February 07, 2015 Active 1 tablet as needed Levaquin [facility] [address]-48 500 mg Orally Once a day February 07, 2015 February 17, 2015 Active 1 tablet Actos [facility] [address]-19 30 mg Orally Once a day Sep 21, 2013 Active 1 tablet Testosterone Cypionate [facility] [address]-35 200 MG/ML intramuscularly every 2 weeks Active 1 ml Trilipix [facility] 70125604394 135 MG Active TAKE 1 CAPSULE BY MOUTH DAILY Vitamin E [facility] [address]-93 400 UNIT Orally Once a day Active 1 capsule Aspirin [facility] [address]-90 325 MG Orally Once a day Active 1 tablet Metformin HCl [facility] [address]-82 500 mg Orally Twice a day February 07, 2015 Active 1 tablet with meals Aciphex [facility] [address]-71 20 mg Orally Once a day Jun 10, 2014 Active 1 tablet Social History Social History Element Qualifiers Date Reported Tobacco Use: . Are you a: never smoker February 07, 2015 Marital Status: . February 07, 2015 Do you drink alcohol? . 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, 2015 Family history Qualifier Description Comment Date Reported Father stroke, heart attack February 07, 2015 Mother alive cancer, stroke February 07, 2015 Maternal Grandfather tuberculosis February 07, 2015 Vital Signs Date/Time: February 07, 2015 Weight 176 lbs Height 69 in Temperature 98.4 F Cardiac Monitoring Heart Rate 80 /min Blood Pressure Diastolic 70 mm Hg Blood Pressure Systolic 120 mm Hg Results Chest 2 views- Xray CBC Platelets(- ) 247 NEUTROPHILS(- ) MID-0.9,GRA-4.3 MCHC(- ) 34.6 MCH(- ) 30.0 MCV(- ) 86.7 WBC(- ) 7.3 RDW(- ) 12.8 RBC(- ) 4.76 Hemoglobin(- ) 14.3 Hematocrit(- ) 41.3 Sinus 3 Views Summary Purpose eClinicalWorks Submission
--- OUTSIDE RECORDS SUMMARY | 2019-04-25 12:07 | XMS REPORT ---
Author Author Ovidio Rueda Organization eClinicalWorks Address Unknown Phone Unavailable Care Team Providers Care Golf Club Manager Name Role Phone Ovidio Rueda CP Unavailable Allergies, Adverse Reactions, Alerts Substance Reaction Event Type Tricor Info Not Available Drug Allergy Lipitor Info Not Available Drug Allergy Codeine Phosphate nausea Drug Allergy Encounters Encounter Location Date Unknown [facility] May 10, 2014 RESULTS [facility] Jun 10, 2014 NV-BW [facility] Sep 16, 2014 TEST INJ [facility] Aug 27, [address] [facility] Aug 12, 2013 FOLLOW-UP [facility] Sep 21, 2013 Follow-Up [facility] Oct 06, 2013 fbw/ inj [facility] Nov 12, 2013 RESULTS/TEST INJ [facility] Dec 01, 2013 LAB RESULTS [facility] Sep 30, [address] [facility] Nov 04, 2013 Unknown [facility] January 21, 2014 Unknown [facility] January 26, 2014 Unknown [facility] May 03, [address] [facility] Jul 23, 2013 Test results [facility] Jul 28, 2013 ECHO/GHEB [facility] Sep 22, 2013 Unknown [facility] January 31, 2015 NV-BW [facility] January 19, 2015 follow up from ER [facility] April 26, 2014 Follow-Up [facility] March 11, 2014 DIABETIC CHK [facility] Jun 10, 2015 F/U pain is not better [facility] Jun 17, 2015 COUGH, CONGESTION AND FLU LIKE SYMPTOMS [facility] January 31, 2015 RESULTS [facility] February 07, 2015 RIGHT EYE PAIN [facility] February 16, 2015 Unknown [facility] May 20, 2015 Problems Problem Type Condition ICD-9 Code Onset Dates Condition Status Problem GERD (Esophageal reflux) 530.81 Active Problem Diabetes mellitus without mention of complication, type II or unspecified type, uncontrolled 250.02 Active Problem Polyneuropathy in diabetes 357.2 Active Problem Overweight 278.02 Active Problem HTN (hypertension), benign 401.1 Active Problem BMI 26.0-26.9,adult V85.22 Active Problem TIA (transient ischemic attack) 435.9 Active Problem Hyperlipidemia 272.4 Active Problem Carotid artery narrowing 433.10 Active Problem Atheromatous plaque 440.9 Active Assessment Hx of renal calculi V13.01 Active Assessment Microhematuria 599.72 Active Assessment Flank pain 789.09 Active Assessment Diabetes mellitus without mention of complication, type II or unspecified type, uncontrolled 250.02 Active Problem Hypogonadism (Other testicular hypofunction) 257.2 Active Medications Medication Code System Code Instructions Start Date End Date Status Dosage Pen [place] 12/27" [facility] [address] 31G X 5 MM (12/27 in vitro use QID DX: 250.03 May 25, 2013 Active as directed Vitamin D [facility] 511[address]-83161 400 UNIT Orally Active as directed Simvastatin [facility] [address]-82 80 mg Active TAKE 1 TABLET BY MOUTH IN THE EVENING ONE TIME DAILY Trilipix [facility] 64376715351 135 MG Active TAKE 1 CAPSULE BY MOUTH DAILY NovoLog Flexpen [facility] [address]-43 100 UNIT/ML Active INJECT 24- 26 UNITS SUBCUTANEOUSLY THREE TIMES DAILY Lisinopril [facility] 27862313561 5 MG Active TAKE 1 TABLET BY MOUTH DAILY Plavix [facility] [address]-31 75 MG Orally Once a day Active 1 tablet BD U/F Mini Pen Needle [facility] 91826849213 31G X 5 MM Active USE DIRECTED FOUR TIMES DAILY Tramadol HCl [facility] [address]-84 50 mg Orally every 6 hrs Jun 17, 2015 Jul 07, 2015 Active 1-2 tablet as needed Amrix [facility] [address]-40 15 MG Orally Once a day Jun 10, 2015 Sep 08, 2015 Active 1 capsule Levemir Flexpen [facility] [address]-35 100 UNIT/ML Active INJECT 56 UNITS SUBCUTANEOUSLY EVERY MORNING Aspirin [facility] [address]-70 325 MG Orally Once a day Active 1 tablet Social History Social History Element Qualifiers Date Reported Pneumoccocal Vaccine . No Jun 17, 2015 Depression Screening: . negative Jun 17, 2015 Flu Vaccine: . 2013Jun 17, 2015 Last Colonoscopy: . 2009Jun 17, 2015 Tobacco Use: . Are you a: never smoker Jun 17, 2015 Marital Status: . Jun 17, 2015 Do you drink alcohol? . 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
--- OUTSIDE RECORDS SUMMARY | 2019-04-25 12:07 | XMS REPORT ---
Author Author Juan Snyder [facility] eClinicalWorks Address Unknown Phone Unavailable Care Team Providers Care Administrative Assistant Data Entry Name Role Phone Juan Snyder CP Unavailable Encounters Encounter Location Date Unknown [facility] May 10, 2014 RESULTS [facility] Jun 10, 2014 NV-BW [facility] Sep 16, 2014 TEST INJ [facility] Aug 27, 2013 BW [facility] Aug 12, 2013 FOLLOW-UP [facility] Sep 21, 2013 Follow-Up [facility] Oct 06, 2013 fbw/ inj [facility] Nov 12, 2013 RESULTS/TEST INJ [facility] Dec 01, 2013 LAB RESULTS [facility] Sep 30, 2014 Refill Request [facility] Nov 04, 2013 Unknown [facility] January 21, 2014 Unknown [facility] January 26, 2014 Unknown [facility] May 03, 2014 WRIST [facility] Jul 23, 2013 Test results [facility] Jul 28, 2013 ECHO/GHEB [facility] Sep 22, 2013 Unknown [facility] January 31, 2015 NV-BW [facility] January 19, 2015 follow up from ER [facility] April 26, 2014 Follow-Up [facility] March 11, 2014 COUGH, CONGESTION AND FLU LIKE SYMPTOMS [facility] January 31, 2015 RESULTS [facility] February 07, 2015 RIGHT EYE PAIN [facility] February 16, 2015 Unknown [facility] May 20, 2015 Problems Problem Type Condition ICD-9 Code Onset Dates Condition Status Problem Polyneuropathy in diabetes 357.2 Active Problem Hyperlipidemia 272.4 Active Problem Diabetes mellitus without mention of complication, type II or unspecified type, uncontrolled 250.02 Active Problem Hypogonadism (Other testicular hypofunction) 257.2 Active Problem GERD (Esophageal reflux) 530.81 Active Problem Overweight 278.02 Active Problem HTN (hypertension), benign 401.1 Active Problem BMI 26.0-26.9,adult V85.22 Active Problem TIA (transient ischemic attack) 435.9 Active Problem SOB (shortness of breath) 786.05 Active Problem Carotid artery narrowing 433.10 Active Problem Atheromatous plaque 440.9 Active Medications Medication Code System Code Instructions Start Date End Date Status Dosage Simvastatin [facility] [address]-51 80 mg Active TAKE 1 TABLET BY MOUTH IN THE EVENING ONE TIME DAILY Social History Social History Element Qualifiers Date Reported Tobacco Use: . Are you a: never smoker February 16, 2015 Marital Status: . February 16, 2015 Do you drink alcohol? . 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
--- OUTSIDE RECORDS SUMMARY | 2019-04-25 12:08 | XMS REPORT ---
Author Author Juan Snyder [facility] eClinicalWorks Address Unknown Phone Unavailable Care Team Providers Care Cushion Maker Hand Name Role Phone Juan Snyder CP Unavailable Encounters Encounter Location Date Unknown [facility] May 10, 2014 RESULTS [facility] Jun 10, 2014 NV-BW [facility] Sep 16, 2014 TEST INJ [facility] Aug 27, 2013 BW [facility] Aug 12, 2013 FOLLOW-UP [facility] Sep 21, 2013 Follow-Up [facility] Oct 06, 2013 fbw/ inj [facility] Nov 12, 2013 RESULTS/TEST INJ [facility] Dec 01, 2013 LAB RESULTS [facility] Sep 30, 2014 Refill Request [facility] Nov 04, 2013 Unknown [facility] January 21, 2014 Unknown [facility] January 26, 2014 Unknown [facility] May 03, 2014 WRIST [facility] Jul 23, 2013 Test results [facility] Jul 28, 2013 ECHO/GHEB [facility] Sep 22, 2013 Unknown [facility] January 31, 2015 NV-BW [facility] January 19, 2015 follow up from ER [facility] April 26, 2014 Follow-Up [facility] March 11, 2014 DIABETIC CHK [facility] Jun 10, 2015 F/U pain is not better [facility] Jun 17, 2015 LAB RESULTS [facility] Jul 04, 2015 refill [facility] Aug 31, 2015 COUGH, CONGESTION AND FLU LIKE SYMPTOMS [facility] January 31, 2015 RESULTS [facility] February 07, 2015 RIGHT EYE PAIN [facility] February 16, [...] Active Problem Atheromatous plaque 440.9 Active Problem Kidney stone N20.0 Active Problem Erectile dysfunction due to diseases classified elsewhere N52.1 Active Problem Peyronie disease N48.6 Active Problem History of ureter stent Z98.89 Active Problem Hypogonadism (Other testicular hypofunction) 257.2 Active Medications Medication Code System Code Instructions Start Date End Date Status Dosage NovoLog Flexpen MEDISPAN [address]-17 100 UNIT/ML Subcutaneous inject 26 units three times a day (disp 5 pens) Aug 26, 2015 Active as directed Social History Social History Element Qualifiers Date Reported Pneumoccocal Vaccine . No Jul 04, 2015 Depression Screening: . negative Jul 04, 2015 Flu Vaccine: . 2013Jul 04, 2015 Last Colonoscopy: . 2009Jul 04, 2015 Tobacco Use: . Are you a: never smoker Jul 04, 2015 Marital Status: . Jul 04, 2015 Do you drink alcohol? . 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
--- OUTSIDE RECORDS SUMMARY | 2019-04-25 12:08 | XMS REPORT ---
Author Author Juan Snyder [facility] eClinicalWorks Address Unknown Phone Unavailable Care Team Providers Care Web Press Operator Apprentice Name Role Phone Juan Snyder Unavailable Allergies, Adverse Reactions, Alerts Substance Reaction Event Type Tricor Info Not Available Drug Allergy Lipitor Info Not Available Drug Allergy Codeine Phosphate nausea Drug Allergy Encounters Encounter Location Date Unknown [facility] May 10, 2014 physical exam [facility] Sep 28, 2015 3 MONTH FOLLOW UP [facility] Sep 14, 2015 RESULTS [facility] Jun 10, 2014 NV-BW [facility] Sep 16, 2014 TEST INJ [facility] Aug 27, 2013 BW [facility] Aug 12, 2013 FOLLOW-UP [facility] Sep 21, 2013 Follow-Up [facility] Oct 06, 2013 fbw/ inj [facility] Nov 12, 2013 RESULTS/TEST INJ [facility] Dec 01, 2013 LAB RESULTS [facility] Sep 30, 2014 Refill Request [facility] Nov 04, 2013 Unknown [facility] January 21, 2014 Unknown [facility] January 26, 2014 Unknown [facility] May 03, 2014 WRIST [facility] Jul 23, 2013 Test results [facility] Jul 28, 2013 ECHO/GHEB [facility] Sep 22, 2013 Unknown [facility] January 31, 2015 NV-BW [facility] January 19, 2015 follow up from ER [facility] April 26, 2014 Follow-Up [facility] March 11, 2014 DIABETIC CHK [facility] Jun 10, 2015 F/U pain is not better [facility] Jun 17, 2015 LAB RESULTS [facility] Jul 04, 2015 refill [facility] Aug 31, 2015 COUGH, CONGESTION AND FLU LIKE SYMPTOMS [facility] January 31, 2015 RESULTS [facility] February 07, 2015 RIGHT EYE PAIN [facility] February 16, 2015 Unknown [facility] May 20, 2015 Problems Problem Type Condition ICD-9 Code Onset Dates Condition Status Problem BMI 27.0-27.9,adult Z68.27 Active Assessment Encounter to discuss test results Z71.89 Active Problem Insulin long-term use Z79.4 Active Assessment Osteopenia M85.80 Active Problem Atheromatous plaque I70.90 Active Problem Essential hypertension I10 Active Problem Carotid artery narrowing I65.29 Active Problem Osteopenia M85.80 Active Problem Type 2 diabetes mellitus with hyperglycemia E11.65 Active Assessment Essential hypertension I10 Active Assessment Insulin long-term use Z79.4 Active Problem Hypertriglyceridemia E78.1 Active Assessment Hypertriglyceridemia E78.1 Active Problem Mixed hyperlipidemia E78.2 Active Problem TIA (transient ischemic attack) G45.9 Active Problem GERD (gastroesophageal reflux disease) K21.9 Active Problem Hypogonadism in male E29.1 Active Assessment Type 2 diabetes mellitus with hyperglycemia E11.65 Active Problem History of ureter stent Z98.89 Active Assessment Mixed hyperlipidemia E78.2 Active Assessment Hypogonadism in male E29.1 Active Problem Peyronie disease N48.6 Active Problem Overweight E66.3 Active Problem Kidney stone N20.0 Active Problem Erectile dysfunction due to diseases classified elsewhere N52.1 Active Medications Medication Code System Code Instructions Start Date End Date Status Dosage Pen [place] 12/27" [facility] [address]38 31G X 5 MM (12/27 in vitro use QID DX: 250.03 May 25, 2013 Active as directed Simvastatin [facility] [address]-45 80 mg Active TAKE 1 TABLET BY MOUTH IN THE EVENING ONE TIME DAILY Trilipix [facility] 99500492399 135 MG Active TAKE 1 CAPSULE BY MOUTH DAILY Aspirin [facility] [address]-01 325 MG Orally Once a day Active 1 tablet Levemir Flexpen [facility] [address]-03 100 UNIT/ML Active INJECT 60 UNITS SUBCUTANEOUSLY EVERY MORNING Lisinopril [facility] 44584950960 5 MG Active TAKE 1 TABLET BY MOUTH DAILY Vitamin D [facility] [address] 400 UNIT Orally Active as directed BD U/F Mini Pen Needle MEDISPAN 26084762979 31G X 5 MM Active USE DIRECTED FOUR TIMES DAILY [facility] [address]-84 100 UNIT/ML Subcutaneous inject 22-26 units three times a day (disp 5 pens) Aug 26, 2015 Active as directed Social History Social History Element Qualifiers Date Reported Pneumoccocal Vaccine . No Sep 28, 2015 Depression Screening: . negative Sep 28, 2015 Flu Vaccine: . 2013Sep 28, 2015 Last Colonoscopy: . 2009Sep 28, 2015 Tobacco Use: . Are you a: never smoker Sep 28, 2015 Marital Status: . Sep 28, 2015 Do you drink alcohol? . 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
--- OUTSIDE RECORDS SUMMARY | 2019-04-25 12:08 | XMS REPORT ---
Author Author Juan Snyder [facility] eClinicalWorks Address Unknown Phone Unavailable Care Team Providers Care Portable Track Crew Chief Name Role Phone Juan Snyder Unavailable Allergies, Adverse Reactions, Alerts Substance Reaction Event Type Tricor Info Not Available Drug Allergy Lipitor Info Not Available Drug Allergy Codeine Phosphate nausea Drug Allergy Encounters Encounter Location Date Unknown [facility] May 10, 2014 3 MONTH FOLLOW UP [facility] Sep 14, 2015 RESULTS [facility] Jun 10, 2014 NV-BW [facility] Sep 16, 2014 TEST INJ [facility] Aug 27, 2013 BW [facility] Aug 12, 2013 FOLLOW-UP [facility] Sep 21, 2013 Follow-Up [facility] Oct 06, 2013 fbw/ inj [facility] Nov 12, 2013 RESULTS/TEST INJ [facility] Dec 01, 2013 LAB RESULTS [facility] Sep 30, 2014 Refill Request [facility] Nov 04, 2013 Unknown [facility] January 21, 2014 Unknown [facility] January 26, 2014 Unknown [facility] May 03, 2014 WRIST [facility] Jul 23, 2013 Test results [facility] Jul 28, 2013 ECHO/GHEB [facility] Sep 22, 2013 Unknown [facility] January 31, 2015 NV-BW [facility] January 19, 2015 follow up from ER [facility] April 26, 2014 Follow-Up [facility] March 11, 2014 DIABETIC CHK [facility] Jun 10, 2015 F/U pain is not better [facility] Jun 17, 2015 LAB RESULTS [facility] Jul 04, 2015 refill [facility] Aug 31, 2015 COUGH, CONGESTION AND FLU LIKE SYMPTOMS [facility] January 31, 2015 RESULTS [facility] February 07, 2015 RIGHT EYE PAIN [facility] February 16, 2015 Unknown [facility] May 20, 2015 Problems Problem Type Condition ICD-9 Code Onset Dates Condition Status Problem BMI 27.0-27.9,adult Z68.27 Active Problem Atheromatous plaque I70.90 Active Problem Insulin long-term use Z79.4 Active Problem GERD (gastroesophageal reflux disease) K21.9 Active Assessment BMI 27.0-27.9,adult Z68.27 Active Problem Hypogonadism in male E29.1 Active Assessment Overweight E66.3 Active Assessment Colon cancer screening Z12.11 Active Problem Type 2 diabetes mellitus with hyperglycemia E11.65 Active Problem Essential hypertension I10 Active Problem Carotid artery narrowing I65.29 Active Problem Mixed hyperlipidemia E78.2 Active Problem TIA (transient ischemic attack) G45.9 Active Assessment Mixed hyperlipidemia E78.2 Active Assessment Hypogonadism in male E29.1 Active Assessment Insulin long-term use Z79.4 Active Assessment Essential hypertension I10 Active Problem Kidney stone N20.0 Active Problem Erectile dysfunction due to diseases classified elsewhere N52.1 Active Assessment Type 2 diabetes mellitus with hyperglycemia E11.65 Active Problem Peyronie disease N48.6 Active Assessment Other follow-up examination Z09 Active Problem History of ureter stent Z98.89 Active Problem Overweight E66.3 Active Medications Medication Code System Code Instructions Start Date End Date Status Dosage Simvastatin [facility] [address]-34 80 mg Active TAKE 1 TABLET BY MOUTH IN THE EVENING ONE TIME DAILY BD U/F Mini Pen Needle [facility] 80092113040 31G X 5 MM Active USE DIRECTED FOUR TIMES DAILY NovoLog Flexpen [facility] [address]-73 100 UNIT/ML Subcutaneous inject 22-26 units three times a day (disp 5 pens) Aug 26, 2015 Active as directed [facility]ix [facility] 33472431772 135 MG Active TAKE 1 CAPSULE BY MOUTH DAILY Lisinopril [facility] 86044881724 5 MG Active TAKE 1 TABLET BY MOUTH DAILY Vitamin D [facility] [address]683[address] 400 UNIT Orally Active as directed [facility] [address]-67 100 UNIT/ML Active INJECT 60 UNITS SUBCUTANEOUSLY EVERY MORNING Plavix [facility] [address]-58 75 MG Orally Once a day Active 1 tablet Aspirin [facility] [address]-68 325 MG Orally Once a day Active 1 tablet Pen [place] 12/27" [facility] [address]649 31G X 5 MM (12/27 in vitro use QID DX: 250.03 May 25, 2013 Active as directed Social History Social History Element Qualifiers Date Reported Pneumoccocal Vaccine . No Sep 14, 2015 Depression Screening: . negative Sep 14, 2015 Flu Vaccine: . 2013Sep 14, 2015 Last Colonoscopy: . 2009Sep 14, 2015 Tobacco Use: . Are you a: never smoker Sep 14, 2015 Marital Status: . Sep 14, 2015 Do you drink alcohol? . 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
--- OUTSIDE RECORDS SUMMARY | 2019-04-25 12:09 | XMS REPORT ---
Author Author Juan Snyder [facility] eClinicalWorks Address Unknown Phone Unavailable Care Team Providers Care Wage Conciliator Name Role Phone Juan Snyder CP Unavailable Allergies, Adverse Reactions, Alerts Substance Reaction Event Type Tricor Info Not Available Drug Allergy Lipitor Info Not Available Drug Allergy Codeine Phosphate nausea Drug Allergy Encounters Encounter Location Date Unknown [facility] May 10, [address] [facility] Nov 01, [address] [facility] Sep 28, 2015 3 MONTH FOLLOW UP [facility] Sep 14, [address] [facility] Jun 10, 2014 NV-BW [facility] Sep 16, 2014 follow up from hospital [facility] Dec 05, [address] [facility] Aug 27, 2013 heaviness in chest, comes and goes [facility] February 02, 2016 BW [facility] Aug 12, 2013 FOLLOW-UP [facility] Sep 21, 2013 Follow-Up [facility] Oct 06, 2013 fbw/ inj [facility] Nov 12, 2013 RESULTS/TEST INJ [facility] Dec 01, [address] [facility] Sep 30, [address] [facility] Nov 04, [address] [facility] January 21, [address] [facility] January 26, [address] [facility] May 03, 2014 WRIST [facility] Jul 23, [address] [facility] Jul 28, 2013 ECHO/GHEB [facility] Sep 22, [address] [facility] January 31, 2015 NV-BW [facility] January 19, 2015 follow up from ER [facility] April 26, 2014 Follow-Up [facility] March 11, [address] [facility] Jun 10, 2015 F/U pain is not better [facility] Jun 17, [address] [facility] Jul 04, [address] [facility] Aug 31, 2015 COUGH, CONGESTION AND FLU LIKE SYMPTOMS [facility] January 31, [address] [facility] February 07, 2015 RIGHT EYE PAIN [facility] February 16, [address] [facility] May 20, 2015 Problems Problem Type Condition ICD-9 Code Onset Dates Condition Status Problem Atheromatous plaque I70.90 Active Problem Essential hypertension I10 Active Problem Carotid artery narrowing I65.29 Active Problem Osteopenia M85.80 Active Assessment Chest pain R07.9 Active Problem Type 2 diabetes mellitus with hyperglycemia E11.65 Active Assessment GERD (gastroesophageal reflux disease) K21.9 Active Problem Hypertriglyceridemia E78.1 Active Problem Mixed hyperlipidemia E78.2 Active Problem TIA (transient ischemic attack) G45.9 Active Problem GERD (gastroesophageal reflux disease) K21.9 Active Problem Hypogonadism in male E29.1 Active Assessment Gastritis K29.70 Active Problem History of ureter stent Z98.89 Active Assessment Type 2 diabetes mellitus with hyperglycemia E11.65 Active Assessment TIA (transient ischemic attack) G45.9 Active Problem Peyronie disease N48.6 Active Problem Overweight E66.3 Active Problem Kidney stone N20.0 Active Problem BMI 27.0-27.9,adult Z68.27 Active Problem Erectile dysfunction due to diseases classified elsewhere N52.1 Active Problem Insulin long-term use Z79.4 Active Medications Medication Code System Code Instructions Start Date End Date Status Dosage Pen [place] 12/27" [facility] [address] 31G X 5 MM (12/27 in vitro use QID DX: 250.03 May 25, 2013 Active as directed NovoLog Flexpen [facility] [address]-68 100 UNIT/ML Subcutaneous inject 22-26 units three times a day (disp 5 pens) Aug 26, 2015 Active as directed Lantus SoloStar [facility] [address]-62 100 UNIT/ML Subcutaneous 60 units in the morning Nov 01, 2015 Active as directed Humalog KwikPen [facility] [address]-30 100 UNIT/ML Subcutaneous 26 units before meals Nov 01, 2015 Active as directed Simvastatin [facility] [address]-48 80 mg by mouth one time daily Active take 1 tablet by mouth in the evening one time daily Levemir Flexpen [facility] [address]-60 100 UNIT/ML Active INJECT 60 UNITS SUBCUTANEOUSLY EVERY MORNING Clopidogrel Bisulfate [facility] [address]-41 75 mg Orally Once a day Active 1 tablet Fenofibric Acid [facility] [address]-66 135 MG Orally Once a day Nov 01, 2015 Active 1 capsule Vitamin D [facility] [address] 400 UNIT Orally Active as directed Lisinopril [facility] [address]-94 5 MG by mouth daily Active take 1 tablet by mouth daily Dexilant [facility] [address]-98 60 MG Orally Once a day February 02, 2016 Active 1 capsule BD Pen Needle Lara U/F [facility] 8290-571270 32G X 4 MM subcutaneously use QID for Lantus and Humalog dx: E11.65, Z79.4 Nov 16, 2015 Active as directed Aspirin [facility] [address]-97 81 MG Orally Once a day Active 1 tablet Metformin HCl [facility] [address]-53 500 mg Orally Twice a day Dec 05, 2015 Active 1 tablet with meals BD U/F Mini Pen Needle [facility] 95915637315 31G X 5 MM Active USE DIRECTED FOUR TIMES DAILY Trilipix [facility] 71922039699 135 MG Active TAKE 1 CAPSULE BY MOUTH DAILY Social History Social History Element Qualifiers Date Reported Pneumoccocal Vaccine . No February 02, 2016 Last Bone Density: . 09/28/15 February 02, 2016 Depression Screening: . negative February 02, 2016 Flu Vaccine: . 2015 February 02, 2016 Last Colonoscopy: . 2009February 02, 2016 Tobacco Use: . Are you a: never smoker February 02, 2016 Marital Status: . February 02, 2016 Do you drink alcohol? . 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
--- OUTSIDE RECORDS SUMMARY | 2019-04-25 12:09 | XMS REPORT ---
Author Author Juan Snyder [facility] eClinicalWorks Address Unknown Phone Unavailable Care Team Providers Care Irrigation Service Technician Name Role Phone Juan Snyder CP Unavailable Allergies, Adverse Reactions, Alerts Substance Reaction Event Type Tricor Info Not Available Drug Allergy Lipitor Info Not Available Drug Allergy Codeine Phosphate nausea Drug Allergy Encounters Encounter Location Date Unknown [facility] May 10, 2014 medication change [facility] Nov 01, 2015 physical exam [facility] Sep 28, 2015 3 MONTH FOLLOW UP [facility] Sep 14, 2015 SORE THROAT/BODY ACHES [facility] February 27, 2016 RESULTS [facility] Jun 10, 2014 Follow up [facility] February 22, 2016 NEMO-LIZZETTE [facility] Sep 16, 2014 follow up from hospital [facility] Dec 05, 2015 TEST INJ [facility] Aug 27, 2013 heaviness in chest, comes and goes [facility] February 02, 2016 BW [facility] Aug 12, 2013 FOLLOW-UP [facility] Sep 21, 2013 Follow-Up [facility] Oct 06, 2013 Follow up on labs [facility] March 01, 2016 fbw/ inj [facility] Nov 12, 2013 RESULTS/TEST INJ [facility] Dec 01, 2013 LAB RESULTS [facility] Sep 30, 2014 Refill Request [facility] Nov 04, 2013 Unknown [facility] January 21, 2014 Unknown [facility] January 26, 2014 Unknown [facility] May 03, 2014 WRIST [facility] Jul 23, 2013 Test results [facility] Jul 28, 2013 ECHO/GHEB [facility] Sep 22, 2013 Unknown [facility] January 31, 2015 NV-BW [facility] January 19, 2015 follow up from ER [facility] April 26, 2014 Follow-Up [facility] March 11, 2014 DIABETIC CHK [facility] Jun 10, 2015 F/U pain is not better [facility] Jun 17, 2015 LAB RESULTS [facility] Jul 04, 2015 refill [facility] Aug 31, 2015 COUGH, CONGESTION AND FLU LIKE SYMPTOMS [facility] January 31, 2015 RESULTS [facility] February 07, 2015 RIGHT EYE PAIN [facility] February 16, 2015 Unknown [facility] May 20, 2015 Problems Problem Type Condition ICD-9 Code Onset Dates Condition Status Assessment Carotid artery narrowing I65.29 Active Problem BMI 27.0-27.9,adult Z68.27 Active Assessment Encounter to discuss test results Z71.89 Active Problem Insulin long-term use Z79.4 Active Assessment Insulin long-term use Z79.4 Active Problem Atheromatous plaque I70.90 Active Problem Essential hypertension I10 Active Problem Carotid artery narrowing I65.29 Active Problem Osteopenia M85.80 Active Problem Type 2 diabetes mellitus with hyperglycemia E11.65 Active Assessment Mixed hyperlipidemia E78.2 Active Assessment Essential hypertension I10 Active Problem Hypertriglyceridemia E78.1 Active Assessment Hypertriglyceridemia E78.1 Active Problem Mixed hyperlipidemia E78.2 Active Problem TIA (transient ischemic attack) G45.9 Active Problem GERD (gastroesophageal reflux disease) K21.9 Active Problem Hypogonadism in male E29.1 Active Assessment Type 2 diabetes mellitus with hyperglycemia E11.65 Active Problem History of ureter stent Z98.89 Active Assessment Hypogonadism in male E29.1 Active Assessment GERD (gastroesophageal reflux disease) K21.9 Active Problem Peyronie disease N48.6 Active Problem Overweight E66.3 Active Problem Kidney stone N20.0 Active Problem Erectile dysfunction due to diseases classified elsewhere N52.1 Active Medications Medication Code System Code Instructions Start Date End Date Status Dosage Trilipix [facility] [address]-98 135 MG Orally Once a day Active 1 capsule Vitamin D [facility] 10526-[address]14 400 UNIT Orally Active as directed Lantus SoloStar [facility] [address]-70 100 UNIT/ML Subcutaneous Q AM Active 60 units Pen [place] 12/27" [facility] [address] 31G X 5 MM (12/27 in vitro use QID DX: 250.03 May 25, 2013 Active as directed Simvastatin [facility] [address]-46 80 mg by mouth daily Active take 1 tablet by mouth in the evening one time daily Aspirin [facility] [address]-25 81 MG Orally Once a day Active 1 tablet Fenofibric Acid [facility] [address]-80 135 MG Orally Once a day Nov 01, 2015 Active 1 capsule Humalog KwikPen [facility] [address]-46 100 UNIT/ML Subcutaneous 26 units before meals Nov 01, 2015 Active as directed BD U/F Mini Pen Needle [facility] 43743726321 31G X 5 MM Active USE DIRECTED FOUR TIMES DAILY BD Pen Needle Lara U/F [facility] 8290-292505 32G X 4 MM subcutaneously use QID for Lantus and Humalog dx: E11.65, Z79.4 Nov 16, 2015 Active as directed Lisinopril [facility] [address]-85 5 MG by mouth daily Active 1 tablet Metformin HCl [facility] [address]-54 500 mg Orally Twice a day Dec 05, 2015 Active 1 tablet with meals Levemir Flexpen [facility] [address]-90 100 UNIT/ML Active INJECT 60 UNITS SUBCUTANEOUSLY EVERY MORNING Clopidogrel Bisulfate [facility] [address]-50 75 mg Orally Once a day Active 1 tablet Dexilant [facility] [address]-25 60 MG Orally Once a day February 02, 2016 Active 1 capsule NovoLog Flexpen [facility] [address]-52 100 UNIT/ML Subcutaneous inject 22-26 units three times a day (disp 5 pens) Aug 26, 2015 Active as directed Social History Social History Element Qualifiers Date Reported Pneumoccocal Vaccine . No March 01, 2016 Last Bone Density: . 09/28/15 March 01, 2016 Depression Screening: . negative March 01, 2016 Flu Vaccine: . 2014March 01, 2016 Last Colonoscopy: . 2009March 01, 2016 Tobacco Use: . Are you a: never smoker March 01, 2016 Marital Status: . March 01, 2016 Do you drink alcohol? . 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
--- OUTSIDE RECORDS SUMMARY | 2019-04-25 12:09 | XMS REPORT ---
Author Author Juan Snyder [facility] eClinicalWorks Address Unknown Phone Unavailable Care Team Providers Care Group Exercise Class Instructor Name Role Phone Juan Snyder CP Unavailable Allergies, Adverse Reactions, Alerts Substance Reaction Event Type Tricor Info Not Available Drug Allergy Lipitor Info Not Available Drug Allergy Codeine Phosphate nausea Drug Allergy Encounters Encounter Location Date Unknown [facility] May 10, 2014 medication change [facility] Nov 01, 2015 physical exam [facility] Sep 28, 2015 3 MONTH FOLLOW UP [facility] Sep 14, 2015 RESULTS [facility] Jun 10, 2014 NV-BW [facility] Sep 16, 2014 follow up from hospital [facility] Dec 05, 2015 TEST INJ [facility] Aug 27, 2013 BW [facility] Aug 12, 2013 FOLLOW-UP [facility] Sep 21, 2013 Follow-Up [facility] Oct 06, 2013 fbw/ inj [facility] Nov 12, 2013 RESULTS/TEST INJ [facility] Dec 01, 2013 LAB RESULTS [facility] Sep 30, 2014 Refill Request [facility] Nov 04, 2013 Unknown [facility] January 21, 2014 Unknown [facility] January 26, 2014 Unknown [facility] May 03, 2014 WRIST [facility] Jul 23, 2013 Test results [facility] Jul 28, 2013 ECHO/GHEB [facility] Sep 22, 2013 Unknown [facility] January 31, 2015 NV-BW [facility] January 19, 2015 follow up from [facility] April 26, 2014 Follow-Up [facility] March 11, 2014 DIABETIC CHK [facility] Jun 10, 2015 F/U pain is not better [facility] Jun 17, 2015 LAB RESULTS [facility] Jul 04, 2015 refill [facility] Aug 31, 2015 COUGH, CONGESTION AND FLU LIKE SYMPTOMS [facility] January 31, 2015 RESULTS [facility] February 07, 2015 RIGHT EYE PAIN [facility] February 16, 2015 Unknown [facility] May 20, [...] Problem Hypogonadism in male E29.1 Active Assessment Hospital discharge follow-up Z09 Active Problem History of ureter stent [...] Instructions Start Date End Date Status Dosage Fenofibric Acid [facility] [address]-05 135 MG Orally Once a day Nov 01, 2015 Active 1 capsule [facility] [address]-74 5 MG by mouth daily Active take 1 tablet by mouth daily Aspirin [facility] [address]-39 81 MG Orally Once a day Active 1 tablet Levemir Flexpen [facility] [address]-48 100 UNIT/ML Active INJECT 60 UNITS SUBCUTANEOUSLY EVERY MORNING Trilipix [facility] 88476255132 135 MG Active TAKE 1 CAPSULE BY MOUTH DAILY BD Pen Needle Lara U/F [facility] 8290-244315 32G X 4 MM subcutaneously use QID for Lantus and Humalog dx: E11.65, Z79.4 Nov 16, 2015 Active as directed Vitamin D [facility] [address]593 400 UNIT Orally Active as directed Simvastatin [facility] [address]-35 80 mg by mouth one time daily Active take 1 tablet by mouth in the evening one time daily Clopidogrel Bisulfate [facility] [address]-81 75 mg Orally Once a day Active 1 tablet Metformin HCl [facility] [address]-56 500 mg Orally Twice a day Dec 05, 2015 Active 1 tablet with meals NovoLog Flexpen [facility] [address]-29 100 UNIT/ML Subcutaneous inject 22-26 units three times a day (disp 5 pens) Aug 26, 2015 Active as directed BD U/F Mini Pen Needle [facility] 60897174435 31G X 5 MM Active USE DIRECTED FOUR TIMES DAILY Lantus SoloStar [facility] [address]-72 100 UNIT/ML Subcutaneous 60 units in the morning Nov 01, 2015 Active as directed Humalog KwikPen [facility] [address]-42 100 UNIT/ML Subcutaneous 26 units before meals Nov 01, 2015 Active as directed Pen [place] 16" [facility] [address] 31G X 5 MM (12/27 in vitro use QID DX: 250.03 May 25, 2013 Active as directed Social History Social History Element Qualifiers Date Reported Pneumoccocal Vaccine . No Dec 05, 2015 Last Bone Density: . 09/28/15 Dec 05, 2015 Depression Screening: . negative Dec 05, 2015 Flu Vaccine: . 2014Dec 05, 2015 Last Colonoscopy: . 2009Dec 05, 2015 Tobacco Use: . Are you a: never smoker Dec 05, 2015 Marital Status: . Dec 05, 2015 Do you drink alcohol? . 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
--- OUTSIDE RECORDS SUMMARY | 2019-04-25 12:10 | XMS REPORT ---
Author Author Juan Snyder Organization [employer] Address Unknown Phone Unavailable Care Team Providers Care Cable Cutter And Swager Name Role Phone Juan Snyder CP Unavailable Allergies, Adverse Reactions, Alerts Substance Reaction Event Type Tricor Info Not Available Drug Allergy Lipitor Info Not Available Drug Allergy Codeine Phosphate nausea Drug Allergy Encounters Encounter Location Date Unknown [facility] May 10, 2014 medication change [facility] Nov 01, 2015 physical exam [facility] Sep 28, 2015 3 MONTH FOLLOW UP [facility] Sep 14, 2015 SORE THROAT/BODY ACHES [facility] February 27, 2016 RESULTS [facility] Jun 10, 2014 Follow up [facility] February 22, 2016 NV-BW [facility] Sep 16, 2014 follow up from hospital [facility] Dec 05, 2015 TEST INJ [facility] Aug 27, 2013 heaviness in chest, comes and goes [facility] February 02, 2016 BW [facility] Aug 12, 2013 FOLLOW-UP [facility] Sep 21, 2013 Follow-Up [facility] Oct 06, 2013 Follow up on labs [facility] March 01, 2016 fbw/ inj [facility] Nov 12, 2013 Cardiolyte Stress Test [facility] March 21, 2016 RESULTS/TEST INJ [facility] Dec 01, 2013 LAB RESULTS [facility] Sep 30, 2014 Refill Request [facility] Nov 04, 2013 Unknown [facility] January 21, 2014 Unknown [facility] January 26, 2014 Unknown [facility] May 03, 2014 WRIST [facility] Jul 23, 2013 Test results [facility] Jul 28, 2013 ECHO/GHEB [facility] Sep 22, 2013 Unknown [facility] January 31, 2015 NV-BW [facility] January 19, 2015 follow up from ER [facility] April 26, 2014 Follow-Up [facility] March 11, 2014 DIABETIC CHK [facility] Jun 10, 2015 F/U pain is not better [facility] Jun 17, 2015 LAB RESULTS [facility] Jul 04, 2015 refill [facility] Aug 31, 2015 COUGH, CONGESTION AND FLU LIKE SYMPTOMS [facility] January 31, 2015 RESULTS [facility] February 07, 2015 RIGHT EYE PAIN [facility] February 16, 2015 Unknown [facility] May 20, 2015 Problems [...] Problem Hypogonadism in male E29.1 Active Assessment Atheromatous plaque I70.90 Active Problem History of ureter stent Z98.89 Active Assessment Mixed hyperlipidemia E78.2 Active Assessment Essential hypertension I10 Active Problem Peyronie disease N48.6 Active Problem Overweight E66.3 Active Problem Kidney stone N20.0 Active Problem BMI 27.0-27.9,adult Z68.27 Active Problem Erectile dysfunction due to diseases classified elsewhere N52.1 Active Problem Insulin long-term use Z79.4 Active Medications Medication Code System Code Instructions Start Date End Date Status Dosage NovoLog Flexpen [facility] [address]-51 100 UNIT/ML Subcutaneous inject 22-26 units three times a day (disp 5 pens) Aug 26, 2015 Active as directed Pen [place] 12/27" MED[facility] 17187-12516 31G X 5 MM (12/27 in vitro use QID DX: 250.03 May 25, 2013 Active as directed [facility] [address]-29 5 MG by mouth daily Active 1 tablet BD U/F Mini Pen Needle [facility] 90577989627 31G X 5 MM Active USE DIRECTED FOUR TIMES DAILY Dexilant [facility] [address]-23 60 MG Orally Once a day February 02, 2016 Active 1 capsule Fenofibric Acid [facility] [address]-92 135 MG Orally Once a day Nov 01, 2015 Active 1 capsule Clopidogrel Bisulfate [facility] [address]-71 75 mg Orally Once a day Active 1 tablet Vitamin D [facility] 04577-27730 400 UNIT Orally Active as directed Humalog KwikPen [facility] [address]-48 100 UNIT/ML Subcutaneous 26 units before meals Nov 01, 2015 Active as directed BD Pen Needle Lara U/F [facility] 8290-137339 32G X 4 MM subcutaneously use QID for Lantus and Humalog dx: E11.65, Z79.4 Nov 16, 2015 Active as directed Aspirin [facility] [address]-65 81 MG Orally Once a day Active 1 tablet Lantus SoloStar [facility] [address]-53 100 UNIT/ML Subcutaneous Q AM Active 60 units Trilipix [facility] [address]-20 135 MG Orally Once a day Active 1 capsule Metformin HCl [facility] [address]-47 500 mg Orally Twice a day Dec 05, 2015 Active 1 tablet with meals Levemir Flexpen [facility] [address]-36 100 UNIT/ML Active INJECT 60 UNITS SUBCUTANEOUSLY EVERY MORNING Simvastatin [facility] [address]-07 80 mg by mouth daily Active take 1 tablet by mouth in the evening one time daily Social History Social History Element Qualifiers Date Reported Pneumoccocal Vaccine . No March 21, 2016 Last Bone Density: . 09/28/15 March 21, 2016 Depression Screening: . negative March 21, 2016 Flu Vaccine: . 2015 March 21, 2016 Last Colonoscopy: . 2010 March 21, 2016 Tobacco Use: . Are you a: never smoker March 21, 2016 Marital Status: . March 21, 2016 Do you drink alcohol? . 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
--- OUTSIDE RECORDS SUMMARY | 2019-04-25 12:10 | XMS REPORT ---
Author Author Juan Snyder [facility] [employer] Address Unknown Phone Unavailable Care Team Providers Care Campground Caretaker Name Role Phone Juan Snyder CP Unavailable Allergies, Adverse Reactions, Alerts Substance Reaction Event Type Tricor Info Not Available Drug Allergy Lipitor Info Not Available Drug Allergy Codeine Phosphate nausea Drug Allergy Encounters Encounter Location Date Unknown [facility] May 10, 2014 medication change [facility] Nov 01, 2015 physical exam [facility] Sep 28, 2015 3 MONTH FOLLOW UP [facility] Sep 14, 2015 SORE THROAT/BODY ACHES [facility] February 27, 2016 RESULTS [facility] Jun 10, 2014 Follow up [facility] February 22, 2016 NEMO-BW [facility] Sep 16, 2014 follow up from hospital [facility] Dec 05, 2015 TEST INJ [facility] Aug 27, 2013 heaviness in chest, comes and goes [facility] February 02, 2016 BW [facility] Aug 12, 2013 FOLLOW-UP [facility] Sep 21, 2013 Follow-Up [facility] Oct 06, 2013 fbw/ inj [facility] Nov 12, 2013 RESULTS/TEST INJ [facility] Dec 01, 2013 LAB RESULTS [facility] Sep 30, 2014 Refill Request [facility] Nov 04, 2013 Unknown [facility] January 21, 2014 Unknown [facility] January 26, 2014 Unknown [facility] May 03, 2014 WRIST [facility] Jul 23, 2013 Test results [facility] Jul 28, 2013 ECHO/GHEB [facility] Sep 22, 2013 Unknown [facility] January 31, 2015 NV-BW [facility] January 19, 2015 follow up from ER [facility] April 26, 2014 Follow-Up [facility] March 11, 2014 DIABETIC CHK [facility] Jun 10, 2015 F/U pain is not better [facility] Jun 17, 2015 LAB RESULTS [facility] Jul 04, 2015 refill [facility] Aug 31, 2015 COUGH, CONGESTION AND FLU LIKE SYMPTOMS [facility] January 31, 2015 RESULTS [facility] February 07, 2015 RIGHT EYE PAIN [facility] February 16, 2015 Unknown [facility] May 20, 2015 Problems Problem Type Condition ICD-9 Code Onset Dates Condition Status Assessment Carotid artery narrowing I65.29 Active Problem BMI 27.0-27.9,adult Z68.27 Active Assessment Hypertriglyceridemia E78.1 Active Problem Insulin long-term use Z79.4 Active Assessment Insulin long-term use Z79.4 Active Problem Atheromatous plaque I70.90 Active Problem Essential hypertension I10 Active Problem Carotid artery narrowing I65.29 Active Problem Osteopenia M85.80 Active Problem Type 2 diabetes mellitus with hyperglycemia E11.65 Active Assessment Hypogonadism in male E29.1 Active Assessment Mixed hyperlipidemia E78.2 Active Problem Hypertriglyceridemia E78.1 Active Assessment Essential hypertension I10 Active Problem Mixed hyperlipidemia E78.2 Active Problem TIA (transient ischemic attack) G45.9 Active Problem GERD (gastroesophageal reflux disease) K21.9 Active Problem Hypogonadism in male E29.1 Active Assessment Type 2 diabetes mellitus with hyperglycemia E11.65 Active Problem History of ureter stent Z98.89 Active Assessment GERD (gastroesophageal reflux disease) K21.9 Active Assessment Atheromatous plaque I70.90 Active Problem Peyronie disease N48.6 Active Problem Overweight E66.3 Active Problem Kidney stone N20.0 Active Problem Erectile dysfunction due to diseases classified elsewhere N52.1 Active Medications Medication Code System Code Instructions Start Date End Date Status Dosage Vitamin D [facility] 480[address] 400 UNIT Orally Active as directed Trilipix [facility] 16929291640 135 MG Active TAKE 1 CAPSULE BY MOUTH DAILY Aspirin [facility] [address]-49 81 MG Orally Once a day Active 1 tablet Metformin HCl [facility] [address]-95 500 mg Orally Twice a day Dec 05, 2015 Active 1 tablet with meals Pen [place] 12/27" MED[facility] 53086-32833 31G X 5 MM (12/27 in vitro use QID DX: 250.03 May 25, 2013 Active as directed Clopidogrel [facility]ulfate [facility] [address]-43 75 mg Orally Once a day Active 1 tablet BD U/F Mini Pen Needle [facility] 49704835203 31G X 5 MM Active USE DIRECTED FOUR TIMES DAILY BD Pen Needle Lara U/F [facility] 8290-781550 32G X 4 MM subcutaneously use QID for Lantus and Humalog dx: E11.65, Z79.4 Nov 16, 2015 Active as directed Simvastatin [facility] [address]-03 80 mg by mouth one time daily Active take 1 tablet by mouth in the evening one time daily NovoLog Flexpen [facility] [address]-54 100 UNIT/ML Subcutaneous inject 22-26 units three times a day (disp 5 pens) Aug 26, 2015 Active as directed Lantus SoloStar [facility] [address]-35 100 UNIT/ML Subcutaneous 60 units in the morning Nov 01, 2015 Active as directed Lisinopril [facility] [address]-49 5 MG by mouth daily Active take 1 tablet by mouth daily Humalog KwikPen [facility] [address]-78 100 UNIT/ML Subcutaneous 26 units before meals Nov 01, 2015 Active as directed Fenofibric Acid [facility] [address]-19 135 MG Orally Once a day Nov 01, 2015 Active 1 capsule Levemir Flexpen [facility] [address]-33 100 UNIT/ML Active INJECT 60 UNITS SUBCUTANEOUSLY EVERY MORNING Dexilant [facility] [address]-13 60 MG Orally Once a day February 02, 2016 Active 1 capsule Social History Social History Element Qualifiers Date Reported Pneumoccocal Vaccine . No February 27, 2016 Last Bone Density: . 09/28/15 February 27, 2016 Depression Screening: . negative February 27, 2016 Flu Vaccine: . 2014February 27, 2016 Last Colonoscopy: . 2009February 27, 2016 Tobacco Use: . Are you a: never smoker February 27, 2016 Marital Status: . February 27, 2016 Do you drink alcohol? . 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
--- OUTSIDE RECORDS SUMMARY | 2019-04-25 12:10 | XMS REPORT ---
Author Author Tammy Dasilva [facility] [employer] Address Unknown Phone Unavailable Care Team Providers Care Pulpwood Cutter Name Role Phone Tammy Dasilva CP Unavailable Allergies, Adverse Reactions, Alerts Substance Reaction Event Type Tricor Info Not Available Drug Allergy Lipitor Info Not Available Drug Allergy Codeine Phosphate nausea Drug Allergy Encounters Encounter Location Date Unknown [facility] May 10, [address] [facility] Nov 01, [address] [facility] Sep 28, [address] [facility] Sep 14, 2015 SORE THROAT/BODY ACHES [facility] February 27, [address] [facility] Jun 10, [address] [facility] Sep 16, 2014 follow up from hospital [facility] Dec 05, [address] [facility] Aug 27, 2013 heaviness in chest, comes and goes [facility] February 02, [address] [facility] Aug 12, 2013 FOLLOW-UP [facility] Sep 21, 2013 Follow-Up [facility] Oct 06, 2013 fbw/ inj [facility] Nov 12, 2013 RESULTS/TEST INJ [facility] Dec 01, [address] [facility] Sep 30, [address] [facility] Nov 04, [address] [facility] January 21, [address] [facility] January 26, [address] [facility] May 03, [address] [facility] Jul 23, [address] [facility] Jul 28, 2013 ECHO/GHEB [facility] Sep 22, [address] [facility] January 31, [address] [facility] January 19, 2015 follow up from ER [facility] April 26, [address] [facility] March 11, [address] [facility] Jun 10, 2015 F/U pain is not better [facility] Jun 17, [address] [facility] Jul 04, [address] [facility] Aug 31, 2015 COUGH, CONGESTION AND FLU LIKE SYMPTOMS [facility] January 31, [address] [facility] February 07, [address] [facility] February 16, [address] [facility] May 20, [...] Problem Hypogonadism in male E29.1 Active Assessment Upper respiratory infection J06.9 Active Problem History of ureter stent Z98.89 Active Problem Peyronie disease N48.6 Active Problem Overweight E66.3 Active Problem Kidney stone N20.0 Active Problem BMI 27.0-27.9,adult Z68.27 Active Problem Erectile dysfunction due to diseases classified elsewhere N52.1 Active Problem Insulin long-term use Z79.4 Active Medications Medication Code System Code Instructions Start Date End Date Status Dosage Simvastatin [facility] [address]-54 80 mg by mouth one time daily Active take 1 tablet by mouth in the evening one time daily Levemir Flexpen [facility] [address]-24 100 UNIT/ML Active INJECT 60 UNITS SUBCUTANEOUSLY EVERY MORNING Trilipix [facility] 25231144685 135 MG Active TAKE 1 CAPSULE BY MOUTH DAILY Metformin HCl [facility] [address]-08 500 mg Orally Twice a day Dec 05, 2015 Active 1 tablet with meals Clopidogrel Bisulfate [facility] [address]-69 75 mg Orally Once a day Active 1 tablet NovoLog Flexpen [facility] [address]-89 100 UNIT/ML Subcutaneous inject 22-26 units three times a day (disp 5 pens) Aug 26, 2015 Active as directed Dexilant [facility] [address]-64 60 MG Orally Once a day February 02, 2016 Active 1 capsule Vitamin D [facility] 85988-77632 400 UNIT Orally Active as directed BD Pen Needle Lara U[facility] 8290-092289 32G X 4 MM subcutaneously use QID for Lantus and Humalog dx: E11.65, Z79.4 Nov 16, 2015 Active as directed Humalog [facility] [address]-03 100 UNIT/ML Subcutaneous 26 units before meals Nov 01, 2015 Active as directed Pen [place] 12/27" [facility] [address]90 31G X 5 MM (12/27 in vitro use QID DX: 250.03 May 25, 2013 Active as directed Lisinopril [facility] [address]-80 5 MG by mouth daily Active take 1 tablet by mouth daily Aspirin [facility] [address]-05 81 MG Orally Once a day Active 1 tablet Fenofibric Acid [facility] [address]-12 135 MG Orally Once a day Nov 01, 2015 Active 1 capsule BD U/F Mini Pen Needle [facility] 02391572962 31G X 5 MM Active USE DIRECTED [...] February 27, 2016 Vital Signs Date/Time: February 27, 2016 Weight 188 lbs Height 69 in Temperature 98.1 F Cardiac Monitoring Heart Rate 73 /min Blood Pressure Diastolic 70 mm Hg Blood Pressure Systolic 124 mm Hg Results [facility] 1MGx4 Summary Purpose eClinicalWorks Submission
--- OUTSIDE RECORDS SUMMARY | 2019-04-25 12:11 | XMS REPORT ---
Author Author Juan Snyder eClinicalWorks Address Unknown Phone Unavailable Care Team Providers Care Burrer Operator Name Role Phone Juan Snyder CP Unavailable Encounters Encounter Location Date Unknown [facility] May 10, 2014 medication change [facility] Nov 01, 2015 physical exam [facility] Sep 28, 2015 3 MONTH FOLLOW UP [facility] Sep 14, 2015 SORE THROAT/BODY ACHES [facility] February 27, 2016 RESULTS [facility] Jun 10, 2014 Follow up [facility] February 22, 2016 NV-BW [facility] Sep 16, 2014 follow up from hospital [facility] Dec 05, 2015 TEST INJ [facility] Aug 27, 2013 heaviness in chest, comes and goes [facility] February 02, 2016 BW [facility] Aug 12, 2013 Confirm Diagnosis [facility] March 29, 2016 FOLLOW-UP [facility] Sep 21, 2013 Follow-Up [facility] Oct 06, 2013 Follow up on labs [facility] March 01, 2016 fbw/ inj [facility] Nov 12, 2013 Cardiolyte Stress Test [facility] March 21, 2016 RESULTS/TEST INJ [facility] Dec 01, 2013 LAB RESULTS [facility] Sep 30, 2014 Refill Request [facility] Nov 04, 2013 Unknown [facility] January 21, 2014 Unknown [facility] January 26, 2014 Unknown [facility] May 03, 2014 WRIST [facility] Jul 23, 2013 Test results [facility] Jul 28, 2013 ECHO/GHEB [facility] Sep 22, 2013 Unknown [facility] January 31, 2015 NV-BW [facility] January 19, 2015 follow up from ER [facility] April 26, 2014 Follow-Up [facility] March 11, 2014 DIABETIC CHK [facility] Jun 10, 2015 F/U pain is not better [facility] Jun 17, 2015 LAB RESULTS [facility] Jul 04, 2015 refill [facility] Aug 31, 2015 COUGH, CONGESTION AND FLU LIKE SYMPTOMS [facility] January 31, 2015 RESULTS [facility] February 07, 2015 RIGHT EYE PAIN [facility] February 16, 2015 Unknown [facility] May 20, [...] Problem Hypogonadism in male E29.1 Active Problem History of ureter stent Z98.89 Active Problem Peyronie disease N48.6 Active Problem Overweight E66.3 Active Problem Kidney stone N20.0 Active Problem BMI 27.0-27.9,adult Z68.27 Active Problem Erectile dysfunction due to diseases classified elsewhere N52.1 Active Problem Insulin long-term use Z79.4 Active Social History Social History Element Qualifiers Date Reported Pneumoccocal Vaccine . No March 21, 2016 Last Bone Density: . 09/28/15 March 21, 2016 Depression Screening: . negative March 21, 2016 Flu Vaccine: . 2014March 21, 2016 Last Colonoscopy: . 2009March 21, 2016 Tobacco Use: . Are you a: never smoker March 21, 2016 Marital Status: . March 21, 2016 Do you drink alcohol? . 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
--- OUTSIDE RECORDS SUMMARY | 2019-04-25 12:11 | XMS REPORT ---
Author Author Tammy Dasilva [facility] eClinicalWorks Address Unknown Phone Unavailable Care Team Providers Care Water Purifier Operator Name Role Phone Tammy Dasilva Unavailable Allergies, Adverse Reactions, Alerts Substance Reaction Event Type Tricor Info Not Available Drug Allergy Lipitor Info Not Available Drug Allergy Codeine Phosphate nausea Drug Allergy Encounters Encounter Location Date Unknown [facility] May 10, 2014 medication change [facility] Nov 01, 2015 physical exam [facility] Sep 28, 2015 3 MONTH FOLLOW UP [facility] Sep 14, 2015 SORE THROAT/BODY ACHES [facility] February 27, 2016 RESULTS [facility] Jun 10, 2014 Follow up [facility] February 22, 2016 NV-BW [facility] Sep 16, 2014 follow up from hospital [facility] Dec 05, 2015 TEST INJ [facility] Aug 27, 2013 heaviness in chest, comes and goes [facility] February 02, 2016 BW [facility] Aug 12, 2013 Confirm Diagnosis [facility] March 29, 2016 FOLLOW-UP [facility] Sep 21, 2013 Follow-Up [facility] Oct 06, 2013 Follow up on labs [facility] March 01, 2016 fbw/ inj [facility] Nov 12, 2013 Cardiolyte Stress Test [facility] March 21, 2016 RESULTS/TEST INJ [facility] Dec 01, 2013 LAB RESULTS [facility] Sep 30, 2014 Refill Request [facility] Nov 04, 2013 Unknown [facility] January 21, 2014 Unknown [facility] January 26, 2014 Unknown [facility] May 03, 2014 WRIST [facility] Jul 23, 2013 Test results [facility] Jul 28, 2013 ECHO/GHEB [facility] Sep 22, [address] [facility] January 31, [address] [facility] January 19, [address] [facility] April 13, 2016 follow up from ER [facility] April 26, 2014 follow up on stress test results [facility] April 03, 2016 Follow-Up [facility] March 11, [address] [facility] Jun 10, 2015 F/U pain is not better [facility] Jun 17, [address] [facility] Jul 04, [address] [facility] Aug 31, 2015 COUGH, CONGESTION AND FLU LIKE SYMPTOMS [facility] January 31, [address] [facility] February 07, [address] [facility] February 16, [address] [facility] May 20, 2015 Problems Problem Type Condition [...] Problem Hypogonadism in male E29.1 Active Assessment Low back pain M54.5 Active Problem History of ureter stent Z98.89 Active Problem Peyronie disease N48.6 Active Problem Overweight E66.3 Active Problem Kidney stone N20.0 Active Problem BMI 27.0-27.9,adult Z68.27 Active Problem Erectile dysfunction due to diseases classified elsewhere N52.1 Active Problem Insulin long-term use Z79.4 Active Medications Medication Code System Code Instructions Start Date End Date Status Dosage BD U/F Mini Pen Needle [employer]o [employer] 10093495271 31G X 5 MM Active USE DIRECTED FOUR TIMES DAILY NovoLog Flexpen [employer] [address]-25 100 UNIT/ML Subcutaneous inject 22-26 units three times a day (disp 5 pens) Aug 26, 2015 Active as directed Zanaflex Amino [employer] [address]-42 4 mg Orally every 8 hrs prn April 13, 2016 April 23, 2016 Active 1 tablet as needed Humalog KwikPen [facility] [address]-88 100 UNIT/ML Subcutaneous 26 units before meals Nov 01, 2015 Active as directed Dexilant [facility] [address]-99 60 MG Orally Once a day February 02, 2016 Active 1 capsule Pen [place] 12/27" [facility] [address]84 31G X 5 MM (12/27 in vitro use QID DX: 250.03 May 25, 2013 Active as directed Vitamin D [facility] [address]85 400 UNIT Orally Active as directed Clopidogrel Bisulfate [facility] [address]-86 75 mg Orally Once a day Active 1 tablet Lisinopril [facility] [address]-34 5 MG by mouth daily Active 1 tablet Simvastatin [facility] [address]-70 80 mg by mouth daily Active take 1 tablet by mouth in the evening one time daily Fenofibric Acid [facility] [address]-07 135 MG Orally Once a day Nov 01, 2015 Active 1 capsule Ibuprofen [facility] [address]-38 800 MG Orally Three times a day prn April 13, 2016 April 23, 2016 Active 1 tablet Aspirin [facility] [address]-44 81 MG Orally Once a day Active 1 tablet BD Pen Needle Lara U/F [facility] 8290-438390 32G X 4 MM subcutaneously use QID for Lantus and Humalog dx: E11.65, Z79.4 Nov 16, 2015 Active as directed Levemir Flexpen [facility] [address]-08 100 UNIT/ML Active INJECT 60 UNITS SUBCUTANEOUSLY EVERY MORNING Metformin HCl [facility] [address]-17 500 mg Orally Twice a day Dec 05, 2015 Active 1 tablet with meals Social History Social History Element Qualifiers Date Reported Last Bone Density: . 09/28/15 April 13, 2016 Depression Screening: . negative April 13, 2016 Flu Vaccine: . 2014April 13, 2016 Pneumoccocal Vaccine . No April 13, 2016 Last Colonoscopy: . 2009April 13, 2016 children . 2 April 13, 2016 Tobacco Use: . Are you a: never smoker April 13, 2016 Marital Status: . April 13, 2016 Do you drink alcohol? . 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
--- OUTSIDE RECORDS SUMMARY | 2019-04-25 12:11 | XMS REPORT ---
Author Author Tammy Dasilva [facility] eClinicalWorks Address Unknown Phone Unavailable Care Team Providers Care Archival Records Clerk Name Role Phone Tammy Dasilva Unavailable Allergies, Adverse Reactions, Alerts Substance Reaction Event Type Tricor Info Not Available Drug Allergy Lipitor Info Not Available Drug Allergy Codeine Phosphate nausea Drug Allergy Encounters Encounter Location Date Unknown [facility] May 10, 2014 medication change [facility] Nov 01, 2015 physical exam [facility] Sep 28, 2015 3 MONTH FOLLOW UP [facility] Sep 14, 2015 SORE THROAT/BODY ACHES [facility] February 27, 2016 RESULTS [facility] Jun 10, 2014 Follow up [facility] February 22, 2016 NV-BW [facility] Sep 16, 2014 follow up from hospital [facility] Dec 05, 2015 TEST INJ [facility] Aug 27, 2013 heaviness in chest, comes and goes [facility] February 02, 2016 BW [facility] Aug 12, 2013 Confirm Diagnosis [facility] March 29, 2016 FOLLOW-UP [facility] Sep 21, 2013 Follow-Up [facility] Oct 06, 2013 Follow up on labs [facility] March 01, 2016 fbw/ inj [facility] Nov 12, 2013 Cardiolyte Stress Test [facility] March 21, 2016 RESULTS/TEST INJ [facility] Dec 01, 2013 LAB RESULTS [facility] Sep 30, 2014 Refill Request [facility] Nov 04, 2013 Unknown [facility] January 21, 2014 Unknown [facility] January 26, 2014 Unknown [facility] May 03, 2014 WRIST [facility] Jul 23, 2013 Test results [facility] Jul 28, 2013 ECHO/GHEB [facility] Sep 22, 2013 Unknown [facility] January 31, 2015 NV-BW [facility] January 19, 2015 follow up from ER [facility] April 26, 2014 follow up on stress test results [facility] April 03, 2016 Follow-Up [facility] March 11, 2014 DIABETIC CHK [facility] Jun 10, 2015 F/U pain is not better [facility] Jun 17, 2015 LAB RESULTS [facility] Jul 04, 2015 refill [facility] Aug 31, 2015 COUGH, CONGESTION AND FLU LIKE SYMPTOMS [facility] January 31, 2015 RESULTS [facility] February 07, 2015 RIGHT EYE PAIN [facility] February 16, 2015 Unknown [facility] May 20, 2015 Problems Problem [...] Problem Hypogonadism in male E29.1 Active Assessment Encounter to discuss test results Z71.89 Active Problem History of ureter stent Z98.89 Active Problem Peyronie disease N48.6 Active Problem Overweight E66.3 Active Problem Kidney stone N20.0 Active Problem BMI 27.0-27.9,adult Z68.27 Active Problem Erectile dysfunction due to diseases classified elsewhere N52.1 Active Problem Insulin long-term use Z79.4 Active Medications Medication Code System Code Instructions Start Date End Date Status Dosage [facility] [address]-47 60 MG Orally Once a day February 02, 2016 Active 1 capsule Lantus SoloStar [facility] [address]-22 100 UNIT/ML Subcutaneous Q AM Active 60 units BD U/F Mini Pen Needle [facility] 95741351753 31G X 5 MM Active USE DIRECTED FOUR TIMES DAILY Fenofibric Acid [facility] [address]-25 135 MG Orally Once a day Nov 01, 2015 Active 1 capsule BD Pen Needle Lara U/F [facility] 8290-390797 32G X 4 MM subcutaneously use QID for Lantus and Humalog dx: E11.65, Z79.4 Nov 16, 2015 Active as directed Metformin HCl [facility] [address]-94 500 mg Orally Twice a day Dec 05, 2015 Active 1 tablet with meals Simvastatin [facility] [address]-82 80 mg by mouth daily Active take 1 tablet by mouth in the evening one time daily Pen [place] 12/27" [facility] [address] 31G X 5 MM (12/27 in vitro use QID DX: 250.03 May 25, 2013 Active as directed Aspirin [facility] [address]-24 81 MG Orally Once a day Active 1 tablet Clopidogrel Bisulfate [facility] [address]-12 75 mg Orally Once a day Active 1 tablet Trilipix [facility] [address]-11 135 MG Orally Once a day Active 1 capsule Levemir Flexpen [facility] [address]-09 100 UNIT/ML Active INJECT 60 UNITS SUBCUTANEOUSLY EVERY MORNING Lisinopril [facility] [address]-14 5 MG by mouth daily Active 1 tablet Vitamin D [facility] 68572-44913 400 UNIT Orally Active as directed Humalog KwikPen [facility] [address]-71 100 UNIT/ML Subcutaneous 26 units before meals Nov 01, 2015 Active as directed NovoLog Flexpen [facility] [address]-09 100 UNIT/ML Subcutaneous inject 22-26 units three times a day (disp 5 pens) Aug 26, 2015 Active as directed Social History Social History Element Qualifiers Date Reported Last Bone Density: . 09/28/15 April 03, 2016 Depression Screening: . negative April 03, 2016 Flu Vaccine: . 2014April 03, 2016 Pneumoccocal Vaccine . No April 03, 2016 Last Colonoscopy: . 2009April 03, 2016 children . 2 April 03, 2016 Tobacco Use: . Are you a: never smoker April 03, 2016 Marital Status: . April 03, 2016 Do you drink alcohol? . 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
--- OUTSIDE RECORDS SUMMARY | 2019-04-25 12:12 | XMS REPORT ---
Author Author Juan Snyder [facility] Address Unknown Phone Unavailable Care Team Providers Care Needle Punch Machine Operator Name Role Phone Juan Snyder CP Unavailable Allergies, Adverse Reactions, Alerts Substance Reaction Event Type Tricor Info Not Available Drug Allergy Lipitor Info Not Available Drug Allergy Codeine Phosphate nausea Drug Allergy Encounters Encounter Location Date Unknown [facility] May 10, 2014 medication change [facility] Nov 01, 2015 physical exam [facility] Sep 28, 2015 3 MONTH FOLLOW UP [facility] Sep 14, 2015 SORE THROAT/BODY ACHES [facility] February 27, 2016 RESULTS [facility] Jun 10, 2014 Follow up [facility] February 22, 2016 NV-BW [facility] Sep 16, 2014 follow up from hospital [facility] Dec 05, 2015 TEST INJ [facility] Aug 27, 2013 heaviness in chest, comes and goes [facility] February 02, 2016 BW [facility] Aug 12, 2013 Confirm Diagnosis [facility] March 29, 2016 FOLLOW-UP [facility] Sep 21, 2013 Follow-Up [facility] Oct 06, 2013 Follow up on labs [facility] March 01, 2016 fbw/ inj [facility] Nov 12, 2013 Cardiolyte Stress Test [facility] March 21, 2016 RESULTS/TEST INJ [facility] Dec 01, 2013 LAB RESULTS [facility] Sep 30, 2014 Refill Request [facility] Nov 04, 2013 Unknown [facility] January 21, 2014 Unknown [facility] January 26, 2014 Unknown [facility] May 03, 2014 WRIST [facility] Jul 23, 2013 Test results [facility] Jul 28, 2013 ECHO/GHEB [facility] Sep 22, 2013 Unknown [facility] January 31, 2015 NV-BW [facility] January 19, 2015 back pain [facility] April 13, 2016 follow up from ER [facility] April 26, 2014 follow up on stress test results [facility] April 03, 2016 Follow-Up [facility] March 11, 2014 3 MONTH FOLLOW UP [facility] Jun 05, 2016 Unknown [facility] May 04, 2016 DIABETIC CHK [facility] Jun 10, 2015 F/U pain is not better [facility] Jun 17, 2015 LAB RESULTS [facility] Jul 04, 2015 refill [facility] Aug 31, 2015 COUGH, CONGESTION AND FLU LIKE SYMPTOMS [facility] January 31, 2015 RESULTS [facility] February 07, 2015 RIGHT EYE PAIN [facility] February 16, 2015 Unknown [facility] May 20, 2015 Problems Problem Type Condition ICD-9 Code Onset Dates Condition Status Assessment Lower back pain M54.5 Active Problem BMI 27.0-27.9,adult Z68.27 Active Assessment Atheromatous plaque I70.90 Active Problem Insulin long-term use Z79.4 Active Assessment Hypertriglyceridemia E78.1 Active Problem Atheromatous plaque I70.90 Active Problem Essential hypertension I10 Active Problem Carotid artery narrowing I65.29 Active Problem Osteopenia M85.80 Active Problem Type 2 diabetes mellitus with hyperglycemia E11.65 Active Assessment Mixed hyperlipidemia E78.2 Active Assessment Essential hypertension I10 Active Problem Hypertriglyceridemia E78.1 Active Assessment Insulin long-term use Z79.4 Active Problem Mixed hyperlipidemia E78.2 Active Problem [...] Start Date End Date Status Dosage Aspirin [facility] [address]-83 81 MG Orally Once a day Active 1 tablet Metformin HCl [facility] [address]-48 500 mg Orally Twice a day Dec 05, 2015 Active 1 tablet with meals BD U/F Mini [facility] [id number] 31G X 5 MM Active USE DIRECTED FOUR TIMES DAILY Dexilant [facility] [address]-66 60 MG Orally Once a day February 02, 2016 Active 1 capsule Clopidogrel Bisulfate [facility] [address]-40 75 mg Orally Once a day Active 1 tablet Humalog KwikPen [facility] [address]-83 100 UNIT/ML Subcutaneous 26 units before meals Nov 01, 2015 Active as directed Vitamin D [facility] 09556-[address]39 400 UNIT Orally Active as directed Pen [place] 3/16" [facility] 33167-[address]607 31G X 5 MM (12/27 in vitro use QID DX: 250.03 May 25, 2013 Active as directed Fenofibric Acid [facility] [address]-85 135 MG Orally Once a day Nov 01, 2015 Active 1 capsule Simvastatin [facility] [address]-64 80 mg by mouth daily Active take 1 tablet by mouth in the evening one time daily Lisinopril [facility] [address]-45 5 MG by mouth daily Active 1 tablet Levemir Flexpen [facility] [address]-84 100 UNIT/ML Active INJECT 60 UNITS SUBCUTANEOUSLY EVERY MORNING NovoLog Flexpen [facility] [address]-01 100 UNIT/ML Subcutaneous inject 22-26 units three times a day (disp 5 pens) Aug 26, 2015 Active as directed BD Pen Needle Lara U[facility] [id number] 32G X 4 MM subcutaneously use QID for Lantus and Humalog dx: E11.65, Z79.4 Nov 16, 2015 Active as directed Social History Social History Element Qualifiers Date Reported Last Bone Density: . 09/28/15 Jun 05, 2016 Depression Screening: . negative Jun 05, 2016 Flu Vaccine: . 2014Jun 05, 2016 Pneumoccocal Vaccine . No Jun 05, 2016 Last Colonoscopy: . 2009Jun 05, 2016 children . 2 Jun 05, 2016 Tobacco Use: . Are you a: never smoker Jun 05, 2016 Marital Status: . Jun 05, 2016 Do you drink alcohol? . 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
--- OUTSIDE RECORDS SUMMARY | 2019-04-25 12:12 | XMS REPORT ---
Author Author Juan Snyder [employer] Address Unknown Phone Unavailable Care Team Providers Care Coil Winder Strap Name Role Phone Juan Snyder CP Unavailable Encounters Encounter Location Date Unknown [facility] May 10, 2014 medication change [facility] Nov 01, 2015 physical exam [facility] Sep 28, 2015 3 MONTH FOLLOW UP [facility] Sep 14, 2015 SORE THROAT/BODY ACHES [facility] February 27, 2016 RESULTS [facility] Jun 10, 2014 Follow up [facility] February 22, 2016 NV-BW [facility] Sep 16, 2014 follow up from hospital [facility] Dec 05, 2015 TEST INJ [facility] Aug 27, 2013 heaviness in chest, comes and goes [facility] February 02, 2016 BW [facility] Aug 12, 2013 Confirm Diagnosis [facility] March 29, 2016 FOLLOW-UP [facility] Sep 21, 2013 Follow-Up [facility] Oct 06, 2013 Follow up on labs [facility] March 01, 2016 fbw/ inj [facility] Nov 12, 2013 Cardiolyte Stress Test [facility] March 21, 2016 RESULTS/TEST INJ [facility] Dec 01, 2013 LAB RESULTS [facility] Sep 30, 2014 Refill Request [facility] Nov 04, 2013 Unknown [facility] January 21, 2014 Unknown [facility] January 26, 2014 Unknown [facility] May 03, 2014 WRIST [facility] Jul 23, 2013 Test results [facility] Jul 28, 2013 ECHO/GHEB [facility] Sep 22, 2013 Unknown [facility] January 31, 2015 NV-BW [facility] January 19, 2015 back pain [facility] April 13, 2016 follow up from ER [facility] April 26, 2014 follow up on stress test results [facility] April 03, 2016 Follow-Up [facility] March 11, 2014 3 MONTH FOLLOW UP [facility] Jun 05, 2016 Unknown [facility] May 04, 2016 Lab results [facility] Jun 22, 2016 DIABETIC CHK [facility] Jun 10, 2015 Unknown [facility] Jun 27, 2016 F/U pain is not better [facility] Jun 17, 2015 Unknown [facility] Jun 27, 2016 LAB RESULTS [facility] Jul 04, 2015 refill [facility] Aug 31, 2015 COUGH, CONGESTION AND FLU LIKE SYMPTOMS [facility] January 31, 2015 RESULTS [facility] February 07, 2015 RIGHT EYE PAIN [facility] February 16, 2015 Unknown [facility] May 20, 2015 Problems Problem Type Condition ICD-9 Code Onset Dates Condition Status Problem Carotid artery narrowing I65.29 Active Problem TIA (transient ischemic attack) G45.9 Active Problem Essential hypertension I10 Active Problem Hypertriglyceridemia E78.1 Active Problem Osteopenia M85.80 Active Problem 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 Active Problem Hypogonadism in male E29.1 Active Problem Mixed hyperlipidemia E78.2 Active Problem Type 2 diabetes mellitus with hyperglycemia E11.65 Active Problem GERD (gastroesophageal reflux disease) K21.9 Active Problem History of ureter stent Z98.89 Active Problem Kidney stone N20.0 Active Problem Overweight E66.3 Active Problem BMI 27.0-27.9,adult Z68.27 Active Problem Erectile dysfunction due to diseases classified elsewhere N52.1 Active Problem Insulin long-term use Z79.4 Active Problem Peyronie disease N48.6 Active Problem Atheromatous plaque I70.90 Active Medications Medication Code System Code Instructions Start Date End Date Status Dosage [facility] [address]-61 500 mg Orally Twice a day Jun 22, 2016 Active 1 tablet with meals Zanaflex [facility] [address]-87 4 mg Orally at bedtime Jun 22, 2016 Jul 22, 2016 Active 1 tablet as needed Social History Social History Element Qualifiers Date Reported Last Bone Density: . 09/28/15 Jun 22, 2016 Depression Screening: . negative Jun 22, 2016 Flu Vaccine: . 2014Jun 22, 2016 Pneumoccocal Vaccine . No Jun 22, 2016 Last Colonoscopy: . 2009Jun 22, 2016 children . 2 Jun 22, 2016 Tobacco Use: . Are you a: never smoker Jun 22, 2016 Marital Status: . Jun 22, 2016 Do you drink alcohol? . 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
--- OUTSIDE RECORDS SUMMARY | 2019-04-25 12:12 | XMS REPORT ---
Author Author Juan Snyder [employer] Address Unknown Phone Unavailable Care Team Providers Care Audio Visual Manager Name Role Phone Juan Snyder CP Unavailable Encounters Encounter Location Date Unknown [facility] May 10, 2014 medication change [facility] Nov 01, 2015 physical exam [facility] Sep 28, 2015 3 MONTH FOLLOW UP [facility] Sep 14, 2015 SORE THROAT/BODY ACHES [facility] February 27, 2016 RESULTS [facility] Jun 10, 2014 Follow up [facility] February 22, 2016 NV-BW [facility] Sep 16, 2014 follow up from hospital [facility] Dec 05, 2015 TEST INJ [facility] Aug 27, 2013 heaviness in chest, comes and goes [facility] February 02, 2016 BW [facility] Aug 12, 2013 Confirm Diagnosis [facility] March 29, 2016 FOLLOW-UP [facility] Sep 21, 2013 Follow-Up [facility] Oct 06, 2013 Follow up on labs [facility] March 01, 2016 fbw/ inj [facility] Nov 12, 2013 Cardiolyte Stress Test [facility] March 21, 2016 RESULTS/TEST INJ [facility] Dec 01, 2013 LAB RESULTS [facility] Sep 30, 2014 Refill Request [facility] Nov 04, 2013 Unknown [facility] January 21, 2014 Unknown [facility] January 26, 2014 Unknown [facility] May 03, 2014 WRIST [facility] Jul 23, 2013 Test results [facility] Jul 28, 2013 ECHO/GHEB [facility] Sep 22, 2013 Unknown [facility] January 31, 2015 NV-BW [facility] January 19, 2015 back pain [facility] April 13, 2016 follow up from ER [facility] April 26, 2014 follow up on stress test results [facility] April 03, 2016 Follow-Up [facility] March 11, 2014 Unknown [facility] May 04, 2016 DIABETIC CHK [facility] Jun 10, 2015 F/U pain is not better [facility] Jun 17, 2015 LAB RESULTS [facility] Jul 04, 2015 refill [facility] Aug 31, 2015 COUGH, CONGESTION AND FLU LIKE SYMPTOMS [facility] January 31, 2015 RESULTS [facility] February 07, 2015 RIGHT EYE PAIN [facility] February 16, 2015 Unknown [facility] May 20, 2015 [...] Instructions Start Date End Date Status Dosage Ibuprofen [facility] [address]-54 800 MG Orally Three times a day prn April 13, 2016 Jun 03, 2016 Active 1 tablet Social History Social History Element Qualifiers Date Reported Last Bone Density: . 09/28/15 April 13, 2016 Depression Screening: . negative April 13, 2016 Flu Vaccine: . 2014April 13, 2016 Pneumoccocal Vaccine . No April 13, 2016 Last Colonoscopy: . 2010 April 13, 2016 children . 2 April 13, 2016 Tobacco Use: . Are you a: never smoker April 13, 2016 Marital Status: . April 13, 2016 Do you drink alcohol? . 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
--- OUTSIDE RECORDS SUMMARY | 2019-04-25 12:12 | XMS REPORT ---
Author Author Juan Snyder [employer] Address Unknown Phone Unavailable Care Team Providers Care Crimper Assembler Name Role Phone Juan Snyder CP Unavailable Encounters Encounter Location Date Unknown [facility] May 10, 2014 medication change [facility] Nov 01, 2015 physical exam [facility] Sep 28, 2015 3 MONTH FOLLOW UP [facility] Sep 14, 2015 SORE THROAT/BODY ACHES [facility] February 27, 2016 RESULTS [facility] Jun 10, 2014 Follow up [facility] February 22, 2016 NV-BW [facility] Sep 16, 2014 follow up from hospital [facility] Dec 05, 2015 TEST INJ [facility] Aug 27, 2013 heaviness in chest, comes and goes [facility] February 02, 2016 BW [facility] Aug 12, 2013 Confirm Diagnosis [facility] March 29, 2016 FOLLOW-UP [facility] Sep 21, 2013 Follow-Up [facility] Oct 06, 2013 Follow up on labs [facility] March 01, 2016 fbw/ inj [facility] Nov 12, 2013 Cardiolyte Stress Test [facility] March 21, 2016 RESULTS/TEST INJ [facility] Dec 01, 2013 LAB RESULTS [facility] Sep 30, 2014 Refill Request [facility] Nov 04, 2013 Unknown [facility] January 21, 2014 Unknown [facility] January 26, 2014 Unknown [facility] May 03, 2014 WRIST [facility] Jul 23, 2013 Test results [facility] Jul 28, 2013 ECHO/GHEB [facility] Sep 22, 2013 Unknown [facility] January 31, 2015 NV-BW [facility] January 19, 2015 back pain [facility] April 13, 2016 follow up from ER [facility] April 26, 2014 follow up on stress test results [facility] April 03, 2016 Follow-Up [facility] March 11, 2014 3 MONTH FOLLOW UP [facility] Jun 05, 2016 Unknown [facility] May 04, 2016 Lab results [facility] Jun 22, 2016 DIABETIC CHK [facility] Jun 10, 2015 Unknown [facility] Jun 27, 2016 F/U pain is not better [facility] Jun 17, 2015 Unknown [facility] Jun 27, 2016 LAB RESULTS [facility] Jul 04, 2015 refill [facility] Aug 31, 2015 COUGH, CONGESTION AND FLU LIKE SYMPTOMS [facility] January 31, 2015 RESULTS [facility] February 07, 2015 RIGHT EYE PAIN [facility] February 16, 2015 Unknown [facility] May 20, 2015 Problems Problem Type Condition [...] Start Date End Date Status Dosage Lisinopril [facility] [address]-49 5 MG by mouth Once a day Active 1 tablet Fenofibric Acid [facility] [address]-67 135 MG Orally Once a day Nov 01, 2015 Active 1 capsule Simvastatin [facility] [address]-82 80 mg by mouth Once a day Active take 1 tablet by mouth in [...]
--- OUTSIDE RECORDS SUMMARY | 2019-04-25 12:13 | XMS REPORT ---
Author Author Juan Snyder [facility] eClinicalWorks Address Unknown Phone Unavailable Care Team Providers Care Dip Brazier Name Role Phone Juan Snyder CP Unavailable Allergies, Adverse Reactions, Alerts Substance Reaction Event Type Tricor Info Not Available Drug Allergy Lipitor Info Not Available Drug Allergy Codeine Phosphate nausea Drug Allergy Encounters Encounter Location Date Unknown [facility] May 10, 2014 medication change [facility] Nov 01, 2015 physical exam [facility] Sep 28, 2015 3 MONTH FOLLOW UP [facility] Sep 14, 2015 SORE THROAT/BODY ACHES [facility] February 27, 2016 RESULTS [facility] Jun 10, 2014 Follow up [facility] February 22, 2016 NV-BW [facility] Sep 16, 2014 follow up from hospital [facility] Dec 05, 2015 TEST INJ [facility] Aug 27, 2013 heaviness in chest, comes and goes [facility] February 02, 2016 BW [facility] Aug 12, 2013 Confirm Diagnosis [facility] March 29, 2016 FOLLOW-UP [facility] Sep 21, 2013 Follow-Up [facility] Oct 06, 2013 Follow up on labs [facility] March 01, 2016 fbw/ inj [facility] Nov 12, 2013 Cardiolyte Stress Test [facility] March 21, 2016 RESULTS/TEST INJ [facility] Dec 01, 2013 LAB RESULTS [facility] Sep 30, 2014 Refill Request [facility] Nov 04, 2013 Unknown [facility] January 21, 2014 Unknown [facility] January 26, 2014 Unknown [facility] May 03, 2014 WRIST [facility] Jul 23, 2013 Test results [facility] Jul 28, 2013 ECHO/GHEB [facility] Sep 22, 2013 Unknown [facility] January 31, 2015 NV-BW [facility] January 19, 2015 back pain [facility] April 13, 2016 follow up from ER [facility] April 26, 2014 follow up on stress test results [facility] April 03, 2016 Follow-Up [facility] March 11, 2014 3 MONTH FOLLOW UP [facility] Jun 05, 2016 Unknown [facility] May 04, 2016 Lab results [facility] Jun 22, 2016 DIABETIC CHK [facility] Jun 10, 2015 Unknown [facility] Jun 27, 2016 F/U pain is not better [facility] Jun 17, 2015 Unknown [facility] Jun 27, 2016 LAB RESULTS [facility] Jul 04, 2015 Needs call back from Medical Staff [facility] Aug 06, 2016 refill [facility] Aug 31, 2015 diabetes check up [facility] Sep 24, 2016 COUGH, CONGESTION AND FLU LIKE SYMPTOMS [facility] January 31, 2015 RESULTS [facility] February 07, 2015 RIGHT EYE PAIN [facility] February 16, 2015 Unknown [facility] May 20, 2015 Problems Problem Type Condition ICD-9 Code Onset Dates Condition Status Problem Carotid artery narrowing I65.29 Active Problem TIA (transient ischemic attack) G45.9 Active Problem Essential hypertension I10 Active Problem Hypertriglyceridemia E78.1 Active Assessment Mixed hyperlipidemia E78.2 Active Problem Osteopenia M85.80 Active Assessment Essential hypertension I10 Active Assessment Insulin long-term use Z79.4 Active Problem 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 Active Problem Hypogonadism in male E29.1 Active Problem Mixed hyperlipidemia E78.2 Active Problem Type 2 diabetes mellitus with hyperglycemia E11.65 Active Problem GERD (gastroesophageal reflux disease) K21.9 Active Problem History of ureter stent Z98.89 Active Problem Kidney stone N20.0 Active Assessment GERD (gastroesophageal reflux disease) K21.9 Active Assessment Type 2 diabetes mellitus with hyperglycemia E11.65 Active Problem Overweight E66.3 Active Problem BMI 27.0-27.9,adult Z68.27 Active Problem Erectile dysfunction due to diseases classified elsewhere N52.1 Active Problem Insulin long-term use Z79.4 Active Assessment Hypertriglyceridemia E78.1 Active Problem Peyronie disease N48.6 Active Problem Atheromatous plaque I70.90 Active Medications Medication Code System Code Instructions Start Date End Date Status Dosage BD Pen Needle [facility] 8[facility]-764199 32G X 4 MM subcutaneously use QID for Lantus and Humalog dx: E11.65, Z79.4 Nov 16, 2015 Active as directed Dexilant [facility] [address]-37 60 MG Orally Once a day February 02, 2016 Active 1 capsule Clopidogrel Bisulfate [facility] 73923934548 75 mg Active 1 TABLET ONCE A DAY ORALLY 30 DAYS Lisinopril [facility] [address]-38 5 MG by mouth Once a day Active 1 tablet Centrum Silver Adult 50+ [facility] [address]-24 Orally Active Unknown Simvastatin [facility] [address]-57 80 mg by mouth Once a day Active take 1 tablet by mouth in the evening one time daily Vitamin D [facility] [address] 400 UNIT Orally Active as directed Metformin HCl [facility] [address]-83 500 mg Orally Twice a day Jun 22, 2016 Active 1 tablet with meals Humalog KwikPen [facility] [address]-56 100 UNIT/ML Active Inject 26 units subcutaneously before meals as directed Dexilant [facility] 68211907523 60 MG Orally Once a day Active 1 capsule BD U/F Mini Pen Needle [facility] 10999702520 31G X 5 MM Active USE DIRECTED FOUR TIMES DAILY Lantus SoloStar [facility] [address]-83 100 UNIT/ML Subcutaneous once a day Active 62 units NovoLog Flexpen [facility] [address]-98 100 UNIT/ML Subcutaneous inject 28 units three times a day (disp 5 pens) Aug 26, 2015 Active as directed Pen [place] /16" [facility] [address]809-[address]132 31G X 5 MM (3 in vitro use QID DX: 250.03 May 25, 2013 Active as directed Aspirin [facility] [address]-32 81 MG Orally Once a day Active 1 tablet Fenofibric Acid [facility] [address]-99 135 MG Orally Once a day Nov 01, 2015 Active 1 capsule Social History Social History Element Qualifiers Date Reported Last Bone Density: . 09/28/15 Sep 24, 2016 Depression Screening: . negative Sep 24, 2016 Flu Vaccine: . 2014Sep 24, 2016 Pneumoccocal Vaccine . No Sep 24, 2016 Last Colonoscopy: . 2009Sep 24, 2016 children . 2 Sep 24, 2016 Tobacco Use: . Are you a: never smoker Sep 24, 2016 Marital Status: . Sep 24, 2016 Do you drink alcohol? . 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
--- OUTSIDE RECORDS SUMMARY | 2019-04-25 12:13 | XMS REPORT ---
Author Author Juan Snyder [facility] eClinicalWorks Address Unknown Phone Unavailable Care Team Providers Care Track Laying Equipment Operator Name Role Phone Juan Snyder CP Unavailable Allergies, Adverse Reactions, Alerts Substance Reaction Event Type Tricor Info Not Available Drug Allergy Lipitor Info Not Available Drug Allergy Codeine Phosphate nausea Drug Allergy Encounters Encounter Location Date Unknown [facility] May 10, 2014 medication change [facility] Nov 01, 2015 physical exam [facility] Sep 28, 2015 3 MONTH FOLLOW UP [facility] Sep 14, 2015 SORE THROAT/BODY ACHES [facility] February 27, 2016 RESULTS [facility] Jun 10, 2014 Follow up [facility] February 22, 2016 NV-BW [facility] Sep 16, 2014 follow up from hospital [facility] Dec 05, 2015 TEST INJ [facility] Aug 27, 2013 heaviness in chest, comes and goes [facility] February 02, 2016 BW [facility] Aug 12, 2013 Confirm Diagnosis [facility] March 29, 2016 FOLLOW-UP [facility] Sep 21, 2013 Follow-Up [facility] Oct 06, 2013 Follow up on labs [facility] March 01, 2016 fbw/ inj [facility] Nov 12, 2013 Cardiolyte Stress Test [facility] March 21, 2016 RESULTS/TEST INJ [facility] Dec 01, 2013 LAB RESULTS [facility] Sep 30, 2014 Refill Request [facility] Nov 04, 2013 Unknown [facility] January 21, 2014 Unknown [facility] January 26, 2014 Unknown [facility] May 03, 2014 WRIST [facility] Jul 23, 2013 Test results [facility] Jul 28, 2013 ECHO/GHEB [facility] Sep 22, 2013 Unknown [facility] January 31, 2015 NV-BW [facility] January 19, 2015 back pain [facility] April 13, 2016 follow up from ER [facility] April 26, 2014 follow up on stress test results [facility] April 03, 2016 Follow-Up [facility] March 11, 2014 3 MONTH FOLLOW UP [facility] Jun 05, 2016 Unknown [facility] May 04, 2016 Lab results [facility] Jun 22, 2016 DIABETIC CHK [facility] Jun 10, 2015 F/U pain is not better [facility] Jun 17, 2015 LAB RESULTS [facility] Jul 04, 2015 refill [facility] Aug 31, 2015 COUGH, CONGESTION AND FLU LIKE SYMPTOMS [facility] January 31, 2015 RESULTS [facility] February 07, 2015 RIGHT EYE PAIN [facility] February 16, 2015 Unknown [facility] May 20, 2015 Problems Problem Type Condition ICD-9 Code Onset Dates Condition Status Assessment Encounter to discuss test results Z71.89 Active Problem Insulin long-term use Z79.4 Active Assessment Lower back pain M54.5 Active Problem Atheromatous plaque I70.90 Active Assessment 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 Active Problem Carotid artery narrowing I65.29 Active Problem TIA (transient ischemic attack) G45.9 Active Problem Essential hypertension I10 Active Problem Hypertriglyceridemia E78.1 Active Problem Osteopenia M85.80 Active Assessment Mixed hyperlipidemia E78.2 Active Assessment Essential hypertension I10 Active Problem 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 Active Assessment Insulin long-term use Z79.4 Active Problem Hypogonadism in male E29.1 Active [...] N52.1 Active Problem Peyronie disease N48.6 Active Medications Medication Code System Code Instructions Start Date End Date Status Dosage BD U/F Mini Pen Needle [facility] 59241457503 31G X 5 MM Active USE DIRECTED FOUR TIMES DAILY Simvastatin [facility] [address]-86 80 mg by mouth daily Active take 1 tablet by mouth in the evening one time daily Clopidogrel Bisulfate [facility] [address]-37 75 mg Orally Once a day Active 1 tablet BD Pen Needle Lara U/F [facility] 8290-125049 32G X 4 MM subcutaneously use QID for Lantus and Humalog dx: E11.65, Z79.4 Nov 16, 2015 Active as directed Lantus SoloStar [facility] [address]-35 100 UNIT/ML Subcutaneous once a day Active 60 units Pen [place] 3/16" [facility] [address] 31G X 5 MM (16 in vitro use QID DX: 250.03 May 25, 2013 Active as directed Metformin HCl [facility] [address]-01 500 mg Orally Twice a day Jun 22, 2016 Active 1 tablet with meals Aspirin [facility] [address]-84 81 MG Orally Once a day Active 1 tablet Dexilant [facility] [address]-70 60 MG Orally Once a day February 02, 2016 Active 1 capsule Vitamin D [facility] [address]75 400 UNIT Orally Active as directed Fenofibric Acid [facility] [address]-09 135 MG Orally Once a day Nov 01, 2015 Active 1 capsule Zanaflex [facility] [address]-86 4 mg Orally at bedtime Jun 22, 2016 Jul 22, 2016 Active 1 tablet as needed Lisinopril [facility] [address]-95 5 MG by mouth daily Active 1 tablet NovoLog Flexpen [facility] [address]-48 100 UNIT/ML Subcutaneous inject 22-26 units three times a day (disp 5 pens) Aug 26, 2015 Active as directed Social History Social History Element Qualifiers Date Reported Last Bone Density: . 09/28/15 Jun 22, 2016 Depression Screening: . negative Jun 22, 2016 Flu Vaccine: . 2014Jun 22, 2016 Pneumoccocal Vaccine . No Jun 22, 2016 Last Colonoscopy: . 2010 Jun 22, 2016 children . 2 Jun 22, 2016 Tobacco Use: . Are you a: never smoker Jun 22, 2016 Marital Status: . Jun 22, 2016 Do you drink alcohol? . 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
--- OUTSIDE RECORDS SUMMARY | 2019-04-25 12:13 | XMS REPORT ---
Author Author Juan Snyder eClinicalWorks Address Unknown Phone Unavailable Care Team Providers Care Geometry Tutor Name Role Phone Juan Snyder CP Unavailable Encounters Encounter Location Date Unknown [facility] February 22, 2016 NV-BW [facility] Aug 12, 2013 Confirm Diagnosis [facility] March 29, 2016 FOLLOW-UP [facility] Sep 21, 2013 Follow-Up [facility] Oct 06, 2013 Follow up on labs [facility] March 01, 2016 fbw/ inj [facility] Nov 12, 2013 Cardiolyte Stress Test [facility] March 21, 2016 RESULTS/TEST INJ [facility] January 19, 2015 back pain [facility] April 13, 2016 follow up from ER [facility] April 26, 2014 follow up on stress test results [facility] April 03, 2016 Follow-Up [facility] March 11, 2014 3 MONTH FOLLOW UP [facility] Jun 05, 2016 Unknown [facility] May 04, 2016 Lab results [facility] Jun 22, 2016 DIABETIC CHK [facility] Jun 10, 2015 Unknown [facility] Jun 27, 2016 F/U pain is not better [facility] Jun 17, 2015 Unknown [facility] Jun 27, 2016 LAB RESULTS [facility] Jul 04, 2015 Needs call back from Medical Staff [facility] Aug 06, 2016 refill [facility] Aug 31, 2015 COUGH, CONGESTION AND FLU LIKE SYMPTOMS [facility] January 31, 2015 RESULTS [facility] February 07, 2015 RIGHT EYE PAIN [facility] February 16, 2015 Unknown [facility] [...] Active Problem Kidney stone N20.0 Active Assessment Type 2 diabetes mellitus with hyperglycemia E11.65 Active Problem Overweight E66.3 Active Problem BMI 27.0-27.9,adult Z68.27 Active Problem Erectile dysfunction due to diseases classified elsewhere N52.1 Active Problem Insulin long-term use Z79.4 Active Problem Peyronie disease N48.6 Active Problem Atheromatous plaque I70.90 Active Medications Medication Code System Code Instructions Start Date End Date Status Dosage Lantus SoloStar [facility] [address]-22 100 UNIT/ML Subcutaneous once a day Active 64 units Nov[facility]Log Flexpen [facility] [address]-92 100 UNIT/ML Subcutaneous inject 28 units three [...]
--- OUTSIDE RECORDS SUMMARY | 2019-04-25 12:14 | XMS REPORT ---
Author Author Juan Snyder Organization eClinicalWorks Address Unknown Phone Unavailable Care Team Providers Care Development Associate Name Role Phone Juan Snyder CP Unavailable [...] diabetes mellitus with hyperglycemia E11.65 Active Assessment Atheromatous plaque I70.90 Active Problem BMI 27.0-27.9,adult Z68.27 Active Problem Insulin long-term use Z79.4 Active Problem Erectile dysfunction due to diseases classified elsewhere N52.1 Active Problem Atheromatous plaque I70.90 Active Problem Overweight E66.3 Active Problem Carotid artery narrowing I65.29 Active Medications No Known Medications Results No Known Results Summary Purpose eClinicalWorks Submission
--- OUTSIDE RECORDS SUMMARY | 2019-04-25 12:14 | XMS REPORT ---
Author Author Juan Snyder [facility] eClinicalWorks Address Unknown Phone Unavailable Care Team Providers Care Yarn Finisher Name Role Phone Juan Snyder CP Unavailable Allergies, Adverse Reactions, Alerts Substance Reaction Event Type Tricor Info Not Available Drug Allergy Lipitor Info Not Available Drug Allergy Codeine Phosphate nausea Drug Allergy Encounters Encounter Location Date Unknown [facility] May 10, 2014 RESULTS [facility] Jun 10, 2014 NV-BW [facility] Sep 16, 2014 TEST INJ [facility] Aug 27, 2013 BW [facility] Aug 12, 2013 FOLLOW-UP [facility] Sep 21, 2013 Follow-Up [facility] Oct 06, 2013 fbw/ inj [facility] Nov 12, 2013 RESULTS/TEST INJ [facility] Dec 01, 2013 LAB RESULTS [facility] Sep 30, 2014 Refill Request [facility] Nov 04, 2013 Unknown [facility] January 21, 2014 Unknown [facility] January 26, 2014 Unknown [facility] May 03, 2014 WRIST [facility] Jul 23, 2013 Test results [facility] Jul 28, 2013 ECHO/GHEB [facility] Sep 22, 2013 Unknown [facility] January 31, 2015 NV-BW [facility] January 19, 2015 follow up from ER [facility] April 26, 2014 Follow-Up [facility] March 11, 2014 DIABETIC CHK [facility] Jun 10, 2015 F/U pain is not better [facility] Jun 17, 2015 LAB RESULTS [facility] Jul 04, 2015 refill [facility] Aug 31, 2015 COUGH, CONGESTION AND FLU LIKE SYMPTOMS [facility] January 31, 2015 RESULTS [facility] February 07, 2015 RIGHT EYE PAIN [facility] February 16, 2015 Unknown [facility] May 20, 2015 medication change [facility] Nov 01, 2015 physical exam [facility] Sep 28, 2015 3 MONTH FOLLOW UP [facility] Sep 14, 2015 SORE THROAT/BODY ACHES [facility] February 27, 2016 Follow up [facility] February 22, 2016 follow up from hospital [facility] Dec 05, 2015 heaviness in chest, comes and goes [facility] February 02, 2016 Confirm Diagnosis [facility] March 29, 2016 Follow up on labs [facility] March 01, 2016 Cardiolyte Stress Test [facility] March 21, 2016 back pain [facility] April 13, 2016 follow up on stress test results [facility] April 03, 2016 3 MONTH FOLLOW UP [facility] Jun 05, 2016 Unknown [facility] May 04, 2016 Lab results [facility] Jun 22, 2016 Unknown [facility] Jun 27, 2016 Unknown [facility] Jun 27, 2016 Needs call back from Medical Staff [facility] Aug 06, 2016 diabetes check up [facility] Sep 24, 2016 3 month follow up [facility] December 13, 2016 Problems Problem Type Condition ICD-9 Code Onset Dates Condition Status Assessment Osteopenia M85.80 Active Problem Atheromatous plaque I70.90 Active Assessment Overweight E66.3 Active Problem Carotid artery narrowing I65.29 Active Assessment BMI 27.0-27.9,adult Z68.27 Active Problem Essential hypertension I10 Active Problem Mixed hyperlipidemia E78.2 Active Problem TIA (transient ischemic attack) G45.9 Active Problem 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 Active Problem Hypertriglyceridemia E78.1 Active Assessment Essential hypertension I10 Active Assessment Insulin long-term use Z79.4 Active Problem Hx-TIA (transient ischemic attack) Z86.73 Active Assessment Hypertriglyceridemia E78.1 Active Problem GERD (gastroesophageal reflux disease) K21.9 Active Problem Hypogonadism in male E29.1 Active Problem Osteopenia M85.80 Active Problem Type 2 diabetes mellitus with hyperglycemia E11.65 Active Assessment Atheromatous plaque I70.90 Active Assessment Type 2 diabetes mellitus with hyperglycemia E11.65 Active Assessment Mixed hyperlipidemia E78.2 Active Assessment Hx-TIA (transient ischemic attack) Z86.73 Active Problem BMI 27.0-27.9,adult Z68.27 Active Problem Insulin long-term use Z79.4 Active Problem Erectile dysfunction due to diseases classified elsewhere N52.1 Active Problem Overweight E66.3 Active Medications Medication Code System Code Instructions Start Date End Date Status Dosage Trilipix [facility] 00560746653 135 MG Active Take 1 capsule by mouth once a day Fenofibric Acid [facility] [address]-44 135 MG Orally Once a day Nov 01, 2015 Active 1 capsule BD U/F Mini Pen Needle [facility] 79734844172 31G X 5 MM Active USE DIRECTED FOUR TIMES DAILY Vitamin D [facility] 84883-[address]326 400 UNIT Orally Active as directed Centrum Silver Adult 50+ [facility] [address]-98 Orally Active Unknown Dexilant [facility] [address]-00 60 MG Orally Once a day February 02, 2016 Active 1 capsule Pen Roberts 3/16" [facility] [address] 31G X 5 MM (3/16 in vitro use QID DX: 250.03 May 25, 2013 Active as directed BD Pen Needle Lara U/F [facility] 8290-895658 32G X 4 MM subcutaneously use QID for Lantus and Humalog dx: E11.65, Z79.4 Nov 16, 2015 Active as directed Metformin HCl [facility] [address]-43 500 mg Orally Twice a day Jun 22, 2016 Active 1 tablet with meals Clopidogrel Bisulfate [facility] 75707839558 75 mg Active 1 TABLET ONCE A DAY ORALLY 30 DAYS Lisinopril [facility] 76853435478 5 MG Active Take 1 tablet by mouth daily Humalog KwikPen [facility] [address]-48 100 UNIT/ML Active inject 30 units subcutaneously before meals as directed NovoLog Flexpen [facility] [address]-20 100 UNIT/ML Subcutaneous inject 28 units three times a day (disp 5 pens) Aug 26, 2015 Active as directed Lantus SoloStar [facility] [address]-59 100 UNIT/ML Subcutaneous once a day Active 64 units Dexilant [facility] 73737838714 60 MG Orally Once a day Active 1 capsule Simvastatin [facility] 19259816161 80 MG Active Take 1 tablet by mouth in the evening Aspirin [facility] [address]-88 81 MG Orally Once a day Active 1 tablet Social History Social History Element Qualifiers Date Reported Last Bone Density: . 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
--- OUTSIDE RECORDS SUMMARY | 2019-04-25 12:14 | XMS REPORT ---
Author Author Juan Snyder Organization eClinicalWorks Address Unknown Phone Unavailable Care Team Providers Care Travel Information Center Supervisor Name Role Phone Juan Snyder CP Unavailable [...] Start Date End Date Status Dosage GlipiZIDE [facility] [address]-93 10 MG Orally Once a day January 16, 2017 Active 1 tablet Results No Known Results Summary Purpose eClinicalWorks Submission
--- OUTSIDE RECORDS SUMMARY | 2019-04-25 12:14 | XMS REPORT ---
Author Author Juan Snyder Organization e[employer] Address Unknown Phone Unavailable Care Team Providers Care Density Control Puncher Name Role Phone Juan Snyder CP Unavailable [...] Active Assessment Mixed hyperlipidemia E78.2 Active Problem BMI 27.0-27.9,adult Z68.27 Active Problem Insulin long-term use Z79.4 Active Problem Erectile dysfunction due to diseases classified elsewhere N52.1 Active Problem Atheromatous plaque I70.90 Active Problem Overweight E66.3 Active Problem Carotid artery narrowing I65.29 Active Medications Medication Code System Code Instructions Start Date End Date Status Dosage Simvastatin [facility] 54249271685 80 MG Active Take 1 tablet by mouth in the evening Results No Known Results Summary Purpose eClinicalWorks Submission
--- OUTSIDE RECORDS SUMMARY | 2019-04-25 12:14 | XMS REPORT ---
Author Author Juan Snyder Organization e[employer] Address Unknown Phone Unavailable Care Team Providers Care Operator Weapon Locating Radar Name Role Phone Juan Snyder CP Unavailable [...] Start Date End Date Status Dosage Simvastatin [facility] 56838672346 80 MG PO once a day Active Take 1 tablet by mouth in the evening Results No Known Results Summary Purpose eClinicalWorks Submission
--- OUTSIDE RECORDS SUMMARY | 2019-04-25 12:15 | XMS REPORT | Continuity of Care Document ---
Author Author [facility] Organization [facility] Address Unknown Phone Unavailable Care Team Providers Care Landmen Name Role Phone Kasey TRINH, Zhao PP Unavailable Insurance Providers Payer name Policy type / Coverage type Policy ID Covered alliance party ID Policy Sarmiento [employer] (HMO) [employer] (HMO) Encounters Encounter Performer Location Date Lab Report Zhao Parks MD [facility] Aug 15, 2014 Problems Problem Effective Dates Problem Status OCCLUSION AND STENOSIS OF CAROTID ARTERY, WITHOUT MENTION OF CEREBRAL INFARCTION 2014 Active Procedures Date Description Comments Aug 12, 2014 smoking status never smoker Vital Signs Date Description Test Result 2014 weight E&M - 3141-9 WEIGHT 181 lb 2014 height E&M - 8302-2 HEIGHT 69 in 2014 temperature E&M TEMPERATURE 98 deg f 2014 pulse rate E&M - 8867-4 PULSE RATE 67 /min 2014 blood pressure, systolic - 8480-6 BP SYSTOLIC 122 mm Hg 2014 blood pressure, diastolic - 8462-4 BP DIASTOLIC 81 mm Hg
--- OUTSIDE RECORDS SUMMARY | 2019-04-25 12:15 | XMS REPORT ---
Author Author Juan Snyder Organization e[employer]Works Address Unknown Phone Unavailable Care Team Providers Care Phlebotomist Name Role Phone Juan Snyder CP Unavailable [...] Start Date End Date Status Dosage Simvastatin [facility] 90722488316 80 MG PO once a day Active Take 1 tablet by mouth in the evening Results No Known Results Summary Purpose eClinicalWorks Submission
--- OUTSIDE RECORDS SUMMARY | 2019-04-25 12:15 | XMS REPORT | Continuity of Care Document ---
Author Author [facility] Organization [facility] Address Unknown Phone Unavailable Care Team Providers Care Deckhand Engineer Name Role Phone Kasey TRINH, Zhao PP Unavailable Insurance Providers Payer name Policy type / Coverage type Policy ID Covered libertarian ID Policy Sarmiento [employer] (HMO) [employer] (HMO) Encounters Encounter Performer Location Date Lab Report Zhao Parks MD [facility] [place] Aug 15, 2014 Problems Problem Effective Dates Problem Status OCCLUSION AND STENOSIS OF CAROTID ARTERY, WITHOUT MENTION OF CEREBRAL INFARCTION 2014 Active Procedures Date Description Comments Aug 12, 2014 smoking status never smoker 2014 smoking status Never smoker Vital Signs Date Description Test Result [...]
--- NOTE | 2019-04-25 18:34 | Operative Report ---
DATE OF PROCEDURE: 04/25/2019 SURGEON: Jairo Palacios MD PROCEDURE: Colonoscopy and polypectomy. INDICATIONS FOR SURVEILLANCE COLONOSCOPY: Personal history of colon polyps. MEDICATION: The patient was done under MAC, please see anesthesiologist's note. PROCEDURE IN DETAIL: With the patient in left lateral decubitus position, flexible fiberoptic Olympus colonoscope was inserted into the rectum with ease and advanced all the way to the cecum. A minute polyp was hot biopsied from the cecum. Eight polyps were snared and 3 polyps were removed per the cold biopsy forceps from the ascending colon. One polyp was snared and polypectomy site was hemoclipped and 2 polyps were removed per the hot biopsy forceps from the transverse colon. The descending appeared to be within normal limits. Two polyps were hot biopsied from the sigmoid colon. The rectum appeared to be within normal limits. The scope was then retroflexed into the distal rectum and small internal hemorrhoids were noted, none of which was actively bleeding. The scope was then straightened out and it was subsequently withdrawn. The patient tolerated procedure well. IMPRESSION: 1. Cecal polyp, hot biopsied. 2. Ascending colon polyps x11, eight snared and three removed per the cold biopsy forceps. 3. Transverse colon polyps x3, one snared and site hemoclipped x2 and two removed per the hot biopsy forceps. 4. Sigmoid colon polyps x2, hot biopsied. 5. Internal hemorrhoids, none actively bleeding. PLAN: Follow up histology. Initiate high-fiber, low-fat diet. Initiate high-fiber supplement. A total of 17 polyps were removed. The patient might benefit from a followup colonoscopy in one year. Jairo Palacios MD [facility] [place] /[id number] cc: DO Juan Acuna MD
== END | disposition home or self-care (01) ==
LOC: OR 10:20
PROVIDERS: ATTEND Internal Medicine Gastroenterology
DX: Z12.11 Encounter for screening for malignant neoplasm of colon (principal); D12.0 Benign neoplasm of cecum; D12.2 Benign neoplasm of ascending colon; D12.3 Benign neoplasm of transverse colon; K64.8 Other hemorrhoids; K85.90 Acute pancreatitis without necrosis or infection, unspecified; K21.9 Gastro-esophageal reflux disease without esophagitis; E11.9 Type 2 diabetes mellitus without complications; G47.33 Obstructive sleep apnea (adult) (pediatric); F41.9 Anxiety disorder, unspecified; Z88.8 Allergy status to other drugs, medicaments and biological substances; Z88.6 Allergy status to analgesic agent; Z01.810 Encounter for preprocedural cardiovascular examination; Z79.02 Long term (current) use of antithrombotics/antiplatelets; Z79.82 Long term (current) use of aspirin; Z79.4 Long term (current) use of insulin; Z79.84 Long term (current) use of oral hypoglycemic drugs; Z68.28 Body mass index [BMI] 28.0-28.9, adult; Z86.73 Personal history of transient ischemic attack (TIA), and cerebral infarction without residual deficits
CPT/HCPCS: 36415; 45380; 45384; 45385; 82948; 93005; J2250; 43239

== ENCOUNTER → 2020-04-11 | Day surgery (SDC) | payer BC, OTHER ==
[2020-04-07 11:48] LABS: EOSINOPHILS # (AUTO) 0.1 (0.0-0.4); EOSINOPHILS % 1.5 % (0.0-6.0); HEMATOCRIT 36.6 % (38.2-49.6); LYMPHOCYTES # (AUTO) 1.1 (1.0-3.2); LYMPHOCYTES % 26.2 % (18.0-39.1); MEAN CORPUSCULAR HEMOGLOBIN 27.8 pg (28-32); MEAN CORPUSCULAR HGB CONC 32.8 g/dL (31-35); MEAN CORPUSCULAR VOLUME 84.7 fL (81-99); MONOCYTES # (AUTO) 0.4 (0.2-0.8); MONOCYTES % 9.5 % (4.4-11.3); NEUTROPHILS # (AUTO) 2.5 (2.1-6.9); NEUTROPHILS % 61.6 % (38.7-80.0); PLATELET COUNT 173 x10e3/uL (140-360); RED BLOOD COUNT 4.32 x10e6/uL (4.3-5.7); RED CELL DISTRIBUTION WIDTH 12.6 % (11.7-14.4)
[~2020-04-11] MED LIST changes: +FENTANYL CITRATE/PF 100MCG/2 ML INJ ONE; +GLUCAGON FOR INJ 1 MG VIAL ONE; +LANTUS 3ML100 UNITS/ SC; +LIDOCAINE HCL 2% LOCAL INJ 5 ML SDV VIAL INJ ONE; +PANTOPRAZOLE SO40 MG PO; +PROPOFOL IV EMULSION 10 MG/ML 20 ML VIAL ONE
[2020-04-11 11:40] VITALS: BP 137/78
--- NOTE | 2020-04-11 14:18 | Operative Report ---
DATE OF PROCEDURE: 04/11/2020 SURGEON: Jairo Palacios MD PROCEDURES: EGD with biopsies and colonoscopy with polypectomy. INDICATION FOR EGD: Heartburn. INDICATIONS FOR COLONOSCOPY: Surveillance colonoscopy, history of numerous colon polyps, 17 polyps were removed on the previous colonoscopy. MEDICATIONS: The patient was done under MAC, please see anesthesiologist's note. PROCEDURE IN DETAIL: With the patient in the left lateral decubitus position, the flexible fiberoptic Olympus gastroscope was introduced into the esophagus under direct visualization without any difficulty. There was some patchy erythema noted in distal esophagus. The scope was then advanced with ease into the stomach. Mucosa overlying the antrum and the body revealed some patchy erythema and low-grade to moderate edema, and biopsies were obtained and sent to stain for H. pylori. Pylorus was of normal contour and shape, was intubated with ease and the scope was advanced all the way to the second portion of the duodenum. The scope was then withdrawn slowly, mucosa overlying the proximal second portion and duodenal bulb appeared to be within normal limits. The scope was then withdrawn back into the stomach and retroflexed, mucosa overlying the fundus and the cardia appeared to be within normal limits. The scope was then straightened out, it was subsequently withdrawn, and the patient tolerated the procedure well. IMPRESSION: 1. Distal esophagitis. 2. Gastritis, biopsied, biopsies sent to stain for Helicobacter pylori. 3. Rule out sprue. PLAN: Follow up histology. Initiate Protonix 40 mg one p.o. q.a.m. before meals. The patient was then turned around and after adequate lubrication of the anal canal, a flexible fiberoptic Olympus colonoscope was inserted into the rectum with ease and advanced all the way to the cecum. Mucosa overlying the cecum appeared to be within normal limits. Four minute polyps were removed per the cold biopsy forceps from the ascending colon and three polyps were removed per the cold biopsy forceps from the transverse colon. One polyp was hot snared and two polyps were cold snared. A total of six polyps were removed from the transverse colon. Two polyps were hot biopsied from the descending colon and one polyp was hot snared from the sigmoid colon. The scope was retroflexed into the distal rectum and small internal hemorrhoids were noted, none of which was actively bleeding. The scope was then straightened out, it was subsequently withdrawn, and the patient tolerated the procedure well. IMPRESSION: 1. Ascending colon polyps x4, cold biopsied. 2. Transverse colon polyps x6, three cold biopsied, one hot snared, and two cold snared. 3. Descending colon polyps x2, hot biopsied. 4. Sigmoid colon polyp x1, hot snared. 5. Internal hemorrhoids, none actively bleeding. PLAN: Follow up histology. A total of 13 polyps were removed. The patient might benefit from a followup colonoscopy in one year. Jairo Palacios MD [facility] [place] /[id number] cc: Juan Snyder MD
== END | disposition home or self-care (01) ==
LOC: OR 09:04
PROVIDERS: ATTEND Internal Medicine Gastroenterology
DX: K29.60 Other gastritis without bleeding (principal); D12.2 Benign neoplasm of ascending colon; D12.3 Benign neoplasm of transverse colon; D12.4 Benign neoplasm of descending colon; D12.5 Benign neoplasm of sigmoid colon; K20.9 Esophagitis, unspecified; K59.09 Other constipation; K21.9 Gastro-esophageal reflux disease without esophagitis; K64.8 Other hemorrhoids; E78.5 Hyperlipidemia, unspecified; E11.9 Type 2 diabetes mellitus without complications; N20.0 Calculus of kidney; Z88.6 Allergy status to analgesic agent; Z01.810 Encounter for preprocedural cardiovascular examination; Z01.812 Encounter for preprocedural laboratory examination; Z11.59 Encounter for screening for other viral diseases; Z79.02 Long term (current) use of antithrombotics/antiplatelets; Z79.82 Long term (current) use of aspirin; Z79.84 Long term (current) use of oral hypoglycemic drugs; Z86.73 Personal history of transient ischemic attack (TIA), and cerebral infarction without residual deficits; Z87.891 Personal history of nicotine dependence
CPT/HCPCS: 36415 ×2; 43239; 45380; 45384; 45385; 82948; 85025; 87635; 93005; J1610; J2001; J2250; J2704; J3010; 45378

== ENCOUNTER → 2020-04-18 | Outpatient (CLI) | payer BC, OTHER ==
[~2020-04-18] MED LIST changes: -FENTANYL CITRATE/PF 100MCG/2 ML INJ ONE; -GLUCAGON FOR INJ 1 MG VIAL ONE; -HYOSCYAMINE 0.125 MG TAB ONE; -LIDOCAINE HCL 2% LOCAL INJ 5 ML SDV VIAL INJ ONE; -MIDAZOLAM HCL 2 MG/2 ML VIAL ONE; -PROPOFOL IV EMULSION 10 MG/ML 20 ML VIAL ONE
--- NOTE | 2020-04-18 10:06 | Diagnostic Imaging Report ---
EXAM: Right upper quadrant abdominal ultrasound INDICATION: Gastritis COMPARISON: None. TECHNIQUE: Transverse and longitudinal images of the right upper quadrant abdomen were obtained FINDINGS: Liver: Size: 11.6 cm in the right midclavicular line, normal Appearance: Increased echogenicity, smooth contour Mass: No focal masses Gallbladder: No gallbladder distension, pericholecystic fluid, wall thickening, stone, or reported sonographic Urban's sign. Gallbladder wall measures 2 mm. Bile Ducts: Intrahepatic Ducts: No dilatation Extrahepatic Ducts: Common bile duct measures 3 mm Pancreas: Visualized portions of the pancreatic head, neck and proximal body are normal. Kidney: The right kidney measures 10.0 cm without evidence of hydronephrosis or stone. Vessels: Aorta: Visualized portions are normal Inferior Vena Cava: Not well-visualized due to overlying bowel gas. Main Portal Vein: 0.7 cm, normal size with hepatopetal flow. Free Fluid: No ascites or pleural effusion IMPRESSION: No sonographic evidence of cholelithiasis or cholecystitis. Hepatic steatosis. Signed by: Carlos Rose MD on 04/18/2020 10:03 AM
== END ==
LOC: US 07:27
PROVIDERS: ATTEND Internal Medicine Gastroenterology
DX: K29.70 Gastritis, unspecified, without bleeding (principal)
CPT/HCPCS: 76705

== ENCOUNTER → 2020-04-27 | Outpatient (CLI) | payer BC, OTHER ==
--- NOTE | 2020-04-27 21:46 | Diagnostic Imaging Report ---
Hepatobiliary Scan with Gallbladder Ejection Fraction Clinical information: Upper abdominal pain Report: Following intravenous administration of 6.3 millicuries of Tc-99m mebrofenin, dynamic images of the abdomen in the anterior projection were obtained through 60 minutes. Sincalide (CCK analog) 1.5 micrograms was administered intravenously over 30 minutes with additional imaging for determination of gallbladder ejection fraction. Perfusion to the liver is normal. Extraction of tracer from the blood pool by the liver parenchyma is normal. Tracer is seen promptly within the biliary tract. The gallbladder begins to fill by 12 minutes post-injection of tracer and fills adequately. Tracer is seen in the small bowel by 49 minutes. The gallbladder ejection fraction with administration of sincalide is 89% (normal greater than 40%). Impression: 1. Filling of the gallbladder excludes the diagnosis of acute cystic duct obstruction/acute cholecystitis. 2. Normal gallbladder ejection fraction of 89% does not support the clinical diagnosis of chronic cholecystitis/gallbladder dyskinesia. Signed by: Dr. Danica Naranjo M.D. on 04/27/2020 9:43 PM
== END ==
LOC: NM 08:34
PROVIDERS: ATTEND Internal Medicine Gastroenterology
DX: R10.10 Upper abdominal pain, unspecified (principal)
CPT/HCPCS: 78227; A9537

== ENCOUNTER → 2020-07-25 | Outpatient (CLI) | payer BC ==
[~2020-07-25] MED LIST changes: +DIATRIZOATE MEGL/DIATRIZOA SOD 30 ML BTL PO ONE; +IOPAMIDOL 370 MG/ML 200 ML INFUS..BTL INJ ONE; +SODIUM CHLORIDE 0.9% 50ML 50 ML ONE
[2020-07-25 16:27] LABS: CREATININE, SERUM 1.5 mg/dL (0.72-1.25)
--- NOTE | 2020-07-25 17:12 | Diagnostic Imaging Report ---
EXAM: CT Abdomen WITH contrast INDICATION: Abdominal pain. Upper abdominal pain. Acid reflux. Pain after eating. History of diabetes and kidney stones. COMPARISON: Ultrasound 04/18/2020 TECHNIQUE: Abdomen was scanned utilizing a multidetector helical scanner from the lung base to the iliac crest after administration of IV contrast. Coronal and sagittal reformations were obtained. Routine protocol was performed. Scan was performed when during portal venous phase. IV CONTRAST: 100 mL of Isovue-370 ORAL CONTRAST: Oral Gastro COMPLICATIONS: None RADIATION DOSE: Total DLP: 224 mGy*cm Estimated effective dose: (DLP x 0.015 x size factor) mSv CTDIvol has been reviewed. It is below the limits set by the Radiation Protocol Committee (RPC). Dose modulation, iterative reconstruction, and/or weight based adjustment of the mA/kV was utilized to reduce the radiation dose to as low as reasonably achievable. FINDINGS: LINES and TUBES: None. LOWER THORAX: Unremarkable HEPATOBILIARY: No focal hepatic lesions. No biliary ductal dilation. GALLBLADDER: No radio-opaque stones or sludge. No wall thickening. SPLEEN: No splenomegaly. Small splenule PANCREAS: No focal masses or ductal dilatation. ADRENALS: No adrenal nodules KIDNEYS/URETERS: Kidneys enhance symmetrically. No hydronephrosis. Several too small to characterize hypodensities in the kidneys most likely due to small cysts. No stones. GI TRACT: No abnormal distention, wall thickening, or evidence of bowel obstruction. Heterogeneous appearance of the stomach contents could be due to oral contrast and swallowed food material. LYMPH NODES: No lymphadenopathy. VESSELS: Unremarkable. PERITONEUM / RETROPERITONEUM: No free air or fluid. BONES: Unremarkable. SOFT TISSUES: Unremarkable. IMPRESSION: 1. No acute CT abnormality in the abdomen. 2. Several too small to characterize hypodensities in the kidneys most likely due to small cysts. 3. Heterogeneous appearance of the stomach contents could be due to oral contrast and swallowed food material. Endoscopy may be of benefit if clinically indicated. Signed by: Dr. Yazan David M.D. on 07/25/2020 5:09 PM
== END ==
LOC: CT 15:34
PROVIDERS: ATTEND Internal Medicine Gastroenterology
DX: R10.13 Epigastric pain (principal)
CPT/HCPCS: 36415; 74160; 82565; 84520; Q9967

== ENCOUNTER → 2020-08-30 | Outpatient (CLI) | payer BC ==
[~2020-08-30] MED LIST changes: -DIATRIZOATE MEGL/DIATRIZOA SOD 30 ML BTL PO ONE; +GADOBENATE DIMEGLUMINE 1 ML IV ONE; -IOPAMIDOL 370 MG/ML 200 ML INFUS..BTL INJ ONE; +LORAZEPAM INJ 2 MG/ML VIAL ONE
[2020-08-30 12:42] LABS: CREATININE, SERUM 1.34 mg/dL (0.72-1.25)
== END ==
LOC: MRI 12:04
PROVIDERS: ATTEND Internal Medicine Gastroenterology
DX: R10.84 Generalized abdominal pain (principal)
CPT/HCPCS: 36415; 74185; 82565; 84520; J2060

== ENCOUNTER → 2021-04-21 | Day surgery (SDC) | payer BC ==
[~2021-04-21] MED LIST changes: +FENTANYL CITRATE/PF 100MCG/2 ML INJ ONE; -GADOBENATE DIMEGLUMINE 1 ML IV ONE; +GLUCAGON FOR INJ 1 MG VIAL ONE; -LORAZEPAM INJ 2 MG/ML VIAL ONE; +MIDAZOLAM HCL 2 MG/2 ML VIAL ONE; +OZEMPIC0.25 MG/0. SC; +POVIDONE IODINE 0.05% 0.05 % ML PO ONE; +PROPOFOL IV EMULSION 10 MG/ML 20 ML VIAL ONE; +REFLUX MEDICATION; -SODIUM CHLORIDE 0.9% 50ML 50 ML ONE; +TRESIBA100 UNIT/1
[2021-04-21 17:45] VITALS: BP 137/95
== END | disposition home or self-care (01) ==
LOC: OR 12:59
PROVIDERS: ATTEND Internal Medicine Gastroenterology
DX: Z09 Encounter for follow-up examination after completed treatment for conditions other than malignant neoplasm (principal); D12.2 Benign neoplasm of ascending colon; D12.3 Benign neoplasm of transverse colon; D12.5 Benign neoplasm of sigmoid colon; K64.8 Other hemorrhoids; K21.9 Gastro-esophageal reflux disease without esophagitis; E11.9 Type 2 diabetes mellitus without complications; K31.84 Gastroparesis; K59.00 Constipation, unspecified; R03.0 Elevated blood-pressure reading, without diagnosis of hypertension; Z88.6 Allergy status to analgesic agent; Z86.73 Personal history of transient ischemic attack (TIA), and cerebral infarction without residual deficits; Z01.810 Encounter for preprocedural cardiovascular examination; Z79.4 Long term (current) use of insulin; Z79.02 Long term (current) use of antithrombotics/antiplatelets; Z79.82 Long term (current) use of aspirin; Z68.26 Body mass index [BMI] 26.0-26.9, adult
CPT/HCPCS: 36415; 45380; 45384; 45385; 82948; 93005; J1610; J2250; J2704; J3010

== ENCOUNTER → 2022-02-15 | Day surgery (SDC) | payer BC ==
[~2022-02-15] MED LIST changes: +HUMALOG100 UNIT/1; +HYOSCYAMINE SULFATE 0.5 MG/ML INJ ONE; +LIDOCAINE HCL 2% LOCAL INJ 5 ML SDV VIAL INJ ONE; -POVIDONE IODINE 0.05% 0.05 % ML PO ONE; +[UNRECOGNIZED DRUG - OTHER]
[2022-02-15 10:15] VITALS: BP 123/73
== END | disposition home or self-care (01) ==
LOC: OR 07:33
PROVIDERS: ATTEND Internal Medicine Gastroenterology
DX: Z12.11 Encounter for screening for malignant neoplasm of colon (principal); D12.2 Benign neoplasm of ascending colon; D12.3 Benign neoplasm of transverse colon; D12.4 Benign neoplasm of descending colon; K64.8 Other hemorrhoids; K29.70 Gastritis, unspecified, without bleeding; K21.9 Gastro-esophageal reflux disease without esophagitis; Z71.3 Dietary counseling and surveillance; E11.9 Type 2 diabetes mellitus without complications; E78.5 Hyperlipidemia, unspecified; Z88.6 Allergy status to analgesic agent; Z01.810 Encounter for preprocedural cardiovascular examination; Z01.812 Encounter for preprocedural laboratory examination; Z20.822 Contact with and (suspected) exposure to COVID-19; Z79.02 Long term (current) use of antithrombotics/antiplatelets; Z79.82 Long term (current) use of aspirin; Z79.4 Long term (current) use of insulin; Z79.899 Other long term (current) drug therapy; Z68.26 Body mass index [BMI] 26.0-26.9, adult; Z86.73 Personal history of transient ischemic attack (TIA), and cerebral infarction without residual deficits; Z91.81 History of falling; Z80.0 Family history of malignant neoplasm of digestive organs
CPT/HCPCS: 36415; 45380; 45385; 82948; 93005; J1610; J1980; J2001; J2250; J2704; J3010; U0002; 45378

== ENCOUNTER → 2025-07-19 | Day surgery (SDC) | payer BC ==
[2025-07-16 13:08] LABS: BASOPHILS % 1.3 % (0.0-1.0); EOSINOPHILS % 2.9 % (0.0-6.0); LYMPHOCYTES % 28.2 % (18.0-39.1); MONOCYTES % 9.6 % (4.4-11.3); NEUTROPHILS % 58.0 % (38.7-80.0); RED CELL DISTRIBUTION WIDTH 13.1 % (11.7-14.4)
[~2025-07-19] MED LIST changes: -FENTANYL CITRATE/PF 100MCG/2 ML INJ ONE; -GLUCAGON FOR INJ 1 MG VIAL ONE; -HYOSCYAMINE SULFATE 0.5 MG/ML INJ ONE; +LACTATED RINGER'S 1,000 ML ONE; -MIDAZOLAM HCL 2 MG/2 ML VIAL ONE; +PROPOFOL IV EMULSION 50 ML IV ONE; -TRESIBA100 UNIT/1; +TRESIBA100 UNIT/1 SC
[2025-07-19 11:53] VITALS: TEMP 98.3
[2025-07-19 12:40] VITALS: BP 127/64; PULSE 72; RESP 16; O2SAT 97
== END | disposition home or self-care (01) ==
LOC: OR 08:44
PROVIDERS: ATTEND Internal Medicine Gastroenterology
DX: K29.50 Unspecified chronic gastritis without bleeding (principal); D12.3 Benign neoplasm of transverse colon; D12.5 Benign neoplasm of sigmoid colon; K20.90 Esophagitis, unspecified without bleeding; K21.9 Gastro-esophageal reflux disease without esophagitis; K64.8 Other hemorrhoids; R63.4 Abnormal weight loss; E11.9 Type 2 diabetes mellitus without complications; Z88.6 Allergy status to analgesic agent; Z01.810 Encounter for preprocedural cardiovascular examination; Z01.812 Encounter for preprocedural laboratory examination; Z79.82 Long term (current) use of aspirin; Z79.02 Long term (current) use of antithrombotics/antiplatelets; Z79.84 Long term (current) use of oral hypoglycemic drugs; Z79.85 Long-term (current) use of injectable non-insulin antidiabetic drugs; Z79.4 Long term (current) use of insulin; Z86.73 Personal history of transient ischemic attack (TIA), and cerebral infarction without residual deficits; Z80.0 Family history of malignant neoplasm of digestive organs
CPT/HCPCS: 36415 ×2; 43239; 45385; 82948; 85025; 93005; J2003; J2470; J2704 ×2; J7121; 45378